=== PATIENT | female | born 1935 | race Caucasian/White ===

== ENCOUNTER 2016-08-14 09:41 | Inpatient (IN) | payer MEDICARE ==
[~2016-08-14] VITALS: Ht 165.1 cm; Wt 52.7 kg
[2016-08-14] MEDS ORDERED: FISH100049 PO (09:57)
[2016-08-14] MEDS ORDERED: VITA100037 PO (09:57)
[2016-08-14] MEDS ORDERED: AMLO5TAB2 PO (09:57)
[2016-08-14] MEDS ORDERED: ATOR40TA PO (09:57)
[2016-08-14] MEDS ORDERED: CALC600T21 PO (09:57)
[2016-08-14] MEDS ORDERED: LISI20TA PO (09:57)
[2016-08-14] MEDS ORDERED: MAGN64TASA PO (09:57)
[2016-08-14] MEDS ORDERED: BIMA01SOL OU (09:57)
[2016-08-14] MEDS ORDERED: DORZ2OPD OU (09:57)
[2016-08-14] MEDS ORDERED: CLINDAMYCIN 600 MG in APPROPRIATE DILUENT 1 EA IV ONE (10:30)
[2016-08-14 11:11] LABS: CALCIUM LEVEL 9.4 MG/DL (8.8-10.2); GLOMERULAR FILTRATION RATE 56.5 (>32); POTASSIUM SERUM 4.4 MEQ/L (3.5-5.1)
[2016-08-14] MEDS ORDERED: NS 1,000 ML IV SCH ×2 (11:30→14:15)
[2016-08-14 11:31] LABS: MEAN CORPUSCULAR VOLUME 94.1 fl (80.0-96.0); PLATELET COUNT, AUTOMATED 341 k/mm3 (150-450); RED CELL DISTRIBUTION WIDTH 12.5 % (11.5-14.5); WHITE BLOOD COUNT 23.6 K/mm3 (4.0-10.0)
--- NOTE | 2016-08-14 11:42 | REP ---
Clinical: Erythema with pain and swelling . Technique: Freeman scale and color Doppler evaluation using linear high frequency transducer. Findings: Ultrasound examination of the left lower extremity deep venous structures from the common femoral vein to the popliteal vein demonstrates normal compressibility flow and wave patterns in response to respiration and augmentation. There is no evidence for deep venous thrombosis. Left groin lymph node measuring 2.3 x 1.0 x 1.7 cm. Impression: No evidence for deep venous thrombosis. Incidental prominent left groin node. Signed by Star Painter MD 08/14/2016 11:34 A
[2016-08-14 11:58] LABS: BANDS 6 % (< 11)
[2016-08-14 12:13] LABS: ERYTHROCYTE SEDIMENTATION RATE 41 mm/hr (0-30)
[2016-08-14] MEDS ORDERED: KETO2CR TOP (12:54)
[2016-08-14] MEDS ORDERED: TRIA0.1L TOP (12:54)
[2016-08-14] MEDS ORDERED: LATA5OPD OU (12:54)
[2016-08-14] MEDS ORDERED: DORZ2SOL5 OU (12:54)
--- NOTE | 2016-08-14 12:58 | HPEPDOC ---
Medical History and Physical Date of Admission 08/14/16 History and Physical ATTENDING: PCP:Dr Johnson CC: LLE pain HPI: 81yoF with a past medical history significant for HTN, HLD, chronic onychomycosis of the B/L feet who has noticed increased pain and erythema of LLE for past 24-48 hours. Pt developed warmth in LLE. Pt felt chills, no known fever. Brought to ED for eval by family. Denies any NEGRETE, CP, SOB, cough, palpitations, abdominal pain, N/V/D or changes in bowel or bladder habits. Upon presentation to the hospital the patient was found to have LLE cellulitis, thus the hospitalist team was consulted. PMHx: HTN HLD Vit D def Hypomagnesemia Glaucoma PSHX: sigmoid resection 03/28 partial hysterectomy 1974 rectovaginal fistula repair 05/30 Melanoma RUE Cataract b/l colonoscopy 05/08 SOCHX: Resides in: [facility] Marital Status: Kids: 6 Employment: retired Tobacco use: 4-5 per day ETOH: 1 beer at lunch, 2 cocktails at night Illicit Drugs: Denies Recent travel:denies Advanced directives: none FAMHX: Mother: liver disease Father: rheumatic HD Siblings: 1 sister Alive, well Children: 5 Alive, well. 1 MVA. Unexpected deaths due to medical reasons: None. ROS: As noted in HPI, otherwise 11pt ROS of systems reviewed and unremarkable. Family at bedside reports she has had difficulty ambulating at home and difficulty getting around the house. No Falls however. PE: GEN: 81yoF, appears stated age. Well-nourished, well developed. No acute distress. Alert and oriented x 3. Pleasant, interactive. HEENT: Normocephalic, atraumatic. Pupils are equal, round, and reactive to light. Extraocular movements are intact. No nystagmus appreciated. Sclera are nonicteric. Conjunctiva without injection. Nose midline. Nasal turbinates without bogginess. EACs both patent BL. TMs both visualized and cronin with good cone of light, no bulging or erythema. No facial asymmetry. Moist mucous membranes. Dentition fair. Pharynx pink and moist, no cobblestoning. Neck supple , trachea midline. No lymphadenopathy or thyromegaly appreciated. CHEST: Regular rate and rhythm, +S1, +S2 LUNGS: Clear to auscultation bilaterally. No wheezes, rales, or rhonchi. Breathing appears symmetric and easy. Patient is speaking in full sentences. No accessory muscle use. ABD: Round, soft, non-tender, non-distended. +Bowel sounds throughout. No rebound or guarding. No costovertebral angle tenderness. EXT: There is skin sloughing of feet B/L, dermatophytosis of nails of feet b/l. LLE with erythema/warmth/edema extending to proximal pretibial area. NEURO: Alert and oriented x 3. Cranial nerves III-XII are intact. No focal deficits appreciated. U/S LLE No evidence for deep venous thrombosis. Incidental prominent left groin node. BLOOD CULTURES: x 2 pending A&P: 81yoF with a past medical history significant for HTN, HLD, chronic onychomycosis of the B/L feet who has noticed increased pain and erythema of LLE for past 24-48 hours. Pt developed warmth in LLE. Pt felt chills, no known fever. Brought to ED for eval by family. The patient will be admitted to M/S Dr. Martinez's service. Pt is discussed with Dr Coon. Kelly cellulitis. U/S LE neg for DVT. BC x 2 pending. Monitor labs, and inflammatory markers. IV Vancomycin with Pharmacy dosing. Hyponatremia. IVF at 75cc/hr. UA pending. Urine for osm/Na. AM Cortisol. HOLD HCTZ, Pt Na appears to be chronically running low. HTN. Cont outpt Norvasc/ACEI with hold parameters HLD. Cont statin. Glaucoma. Cont outpt regimen. Unsteady gait. No falls. PT/OT requested. Pt does not use any assistive devices at home. DVT prophylaxis. Lovenox The patient is a Full code Vital Signs Vital Signs Label Value Date Time Patient Temperature 98.8 degrees F 08/14/16940 Temperature Source Temporal 08/14/16940 Pulse 98 08/14/16940 Respiratory Rate 18 bpm 08/14/16940 Blood Pressure Assessment 159/72 (101) 08/14/16 09 Location Right Arm Source Automatic Cuff (NIBP) Position Sitting Bedside Pulse Oximetry 98 % 08/14/16940 Item Value Date Time Oxygen Delivery Method Room Air 08/14/16 0926 Laboratory Data Labs 24H Laboratory Tests 2 08/14/16 10:25: Anion Gap 9, Atypical Lymphocytes 1, Band Neutrophils 6, White Blood Count 23.6H , Red Blood Count 3.70L, Hemoglobin 11.9L, Hematocrit 34.8L, Mean Corpuscular Volume 94.1, Mean Corpuscular Hemoglobin 32.0, Mean Corpuscular Hemoglobin Concent 34.0, Red Cell Distribution Width 12.5, Platelet Count 341, Neutrophils (%) (Auto) , Lymphocytes (%) (Auto) , Monocytes (%) (Auto) , Eosinophils (%) ( Auto) , Basophils (%) (Auto) , Neutrophils # (Auto) , Lymphocytes # (Auto) , Monocytes # (Auto) , Eosinophils # (Auto) , Basophils # (Auto) , C-Reactive Protein, Quantitative 11.30H, Blood Urea Nitrogen 21H, Creatinine 1.00, Sodium Level 127L, Potassium Level 4.4, Chloride Level 89L, Carbon Dioxide Level 29, Calcium Level 9.4, Erythrocyte Sedimentation Rate 41H, Glomerular Filtration Rate 56.5, Large Unclassified Cells # , Large Unclassified Cells % , Lymphocytes (Manual) 1L, Monocytes (Manual) 8, Neutrophils 84H, Platelet Estimate NORMAL, Red Blood Cell Morphology NORMAL CBC/BMP Laboratory Tests 08/14/16 10:25 Calcium Level 9.4, Red Blood Count 3.70 L, Mean Corpuscular Volume 94.1, Mean Corpuscular Hemoglobin 32.0, Mean Corpuscular Hemoglobin Concent 34.0, Red Cell Distribution Width 12.5, Neutrophils (%) (Auto) , Lymphocytes (%) (Auto) , Monocytes (%) (Auto) , Eosinophils (%) (Auto) , Basophils (%) (Auto) , Neutrophils # (Auto) , Lymphocytes # (Auto) , Monocytes # (Auto) , Eosinophils # (Auto) , Basophils # (Auto) Home Medications Scheduled (Lisinopril/Hydrochlorothi 20-12.5 mg) 1 Tab Tab 1 TAB PO DAILY (Dorzolamide HCl/Timolol M 22.3-6.8 mg/ml) 1 Linda Linda 1 DROP OU BID Amlodipine Besylate (Amlodipine Besylate) 5 Mg Tab 5 MG PO DAILY Atorvastatin Calcium (Atorvastatin Calcium) 40 Mg Tab 40 MG PO DAILY Calcium Carbonate (Calcium) 600 Mg Tab 600 MG PO DAILY TAKES WITH LUNCH Fish Oil (Fish Oil 1000 mg) 1 Cap Cap 1 CAP PO BID Ketoconazole (Ketoconazole) 2 % Cre 1 DOSE TOP DAILY APPLY TO FEET Latanoprost (Latanoprost) 50 Drop/2.5 Ml Soln 1 DROP OU QHS Magnesium Chloride (Mag64) 64 Mg Tabcr 64 MG PO DAILY TAKES WITH LUNCH Vitamin D (Vitamin D) 1,000 Unit Cap 1,000 UNIT PO DAILY TAKES WITH LUNCH Scheduled PRN Triamcinolone Acetonide (Triamcinolone Acetonide) 0.1 % Lot 1 DOSE TOP BID PRN PRN ITCHING APPLY TO ARMS, BACK, AND THIGHS Allergies Coded Allergies: Codeine (Verified Allergy, Mild, RASH, 08/24/12) Azithromycin (Verified Allergy, Unknown, CAN'T REMEMBER RXN; SUGGESTED TO LIST ALLERGY, 08/24/12) Tetracycline (Verified Adverse Reaction, Severe, TONGUE BURNING, 08/14/16) Jeane Tierney Aug 14, 2016 12:58
[2016-08-14 13:58] LABS: MAGNESIUM LEVEL 1.6 MG/DL (1.8-2.4)
[2016-08-14] MEDS ORDERED: VANCOMYCIN HCL 1,000 MG, VIAL MATE ADAPTER 1 EACH in D5W 250 ML IV ONE (14:00)
[2016-08-14] MEDS: ACETAMINOPHEN TAB 650MG DOSE (2X325MG) PO PRN ×2 (14:35→20:11)
[2016-08-14 15:00] VITALS: BP 123/57
--- NOTE | 2016-08-14 15:02 | PHACANCOPD ---
PHARMACY VANCOMYCIN DOSING Pt Demographics Demographics Patient Age:81 , Weight: , Gender: female Adjusted Body Weight Date: 08/14/16, Adjusted Body Weight: Kg Events Past 24 Hours Events Past 24 Hours: NO: Change in CrCl, Dialysis, Diuretic Therapy, Elevation in WBC, Fever, Other, Pending Diagnostics, Pending Procedures Vancomycin Vancomycin indication: CELLULITIS Vancomycin Target Ranges: 15-20 mcg/ml Vancomycin Load Y/N: No Load Dose Date Time Vancomycin Load Dose: Date: Time: Vancomycin Dose Date: 08/14/16. Current Vancomycin Dose: [1GM IV Q24H@17] Intermittent Dosing?: No Labs Labs Vital Signs Label Value Date Time Patient Temperature 101.1 degrees F 08/14/16 1441 Temperature Source Temporal 08/14/16 1441 Item Value Date Time White Blood Count 23.6 K/mm3 H 08/14/16 1025 Creatinine 1.00 MG/DL 08/14/16 1025 Micro Microbiology 08/14/16 Blood Culture, Received Pending 08/14/16 Blood Culture, Received Pending Creatinine Clearance Date:08/14/16. Creatinine Clearance: . Assessment and Plan Maintaining Current Dose?: Yes Reason for dose change: No Dose Change Pharmacist Note Pharmacist Note Date: 08/14/16. Pharmacist note: Patient was started on Vancomycin 1gm IV q24h for treatment of cellulitis. She has no history of Vancomycin use at our facility. She has no history of MRSA at our facility. We will continue to monitor and make adjustments as necessary. D[facility] Aug 14, 2016 15:02
[2016-08-14] MEDS: ENOXAPARIN 40 MG/0.4 ML SYRINGE (J1650) SC SCH (15:29)
[2016-08-14] MEDS: VITAMIN D 1,000 INTERNATIONAL UNITS TABLET PO SCH (15:29)
[2016-08-14] MEDS: MAGNESIUM CHLORIDE 64 MG TABCR (SLO MAG) PO SCH (15:30)
[2016-08-14] MEDS: VANCOMYCIN HCL 1,000 MG, VIAL MATE ADAPTER 1 EACH in D5W 250 ML IV SCH (16:38)
[2016-08-14] MEDS: COSOPT OCUMETER PLUS 10ML (DORZOLAMIDE/TIMOLOL) OU SCH (20:10)
[2016-08-14] MEDS: LATANOPROST 0.005% OPHTH SOLN 2.5 ML OU SCH (20:10)
[2016-08-14 20:31] LABS: OSMOLALITY URINE 262 MOSM/KG (500-800)
[2016-08-14 22:00] VITALS: BP 134/70
[2016-08-15] MEDS: ACETAMINOPHEN TAB 650MG DOSE (2X325MG) PO PRN ×2 (05:12→20:06)
[2016-08-15 06:00] VITALS: BP 130/62
[2016-08-15 06:48] LABS: BASO % 0.1 % (0.0-1.0); EOS # 0.2 K/mm3 (0.0-0.50); EOS % 1.4 % (0.0-3.0); LARGE UNSTAINED CELL # 0.1 K/mm3 (0.0-0.4); LARGE UNSTAINED CELL % 0.7 % (0.0-4.0); LYMPH # 0.9 K/mm3 (1.5-4.5); LYMPH % 5.8 % (24.0-44.0); MEAN CORPUSCULAR HEMOGLOBIN 32.6 pg (27.0-33.0); MEAN CORPUSCULAR VOLUME 93.1 fl (80.0-96.0); MONO # 0.4 K/mm3 (0.0-0.8); MONO % 2.9 % (0.0-5.0); NEUTROPHILS # 12.8 K/mm3 (1.8-7.7); NEUTROPHILS % 89.1 % (36.0-66.0); PLATELET COUNT, AUTOMATED 263 k/mm3 (150-450); RED CELL DISTRIBUTION WIDTH 12.6 % (11.5-14.5); WHITE BLOOD COUNT 14.3 K/mm3 (4.0-10.0)
[2016-08-15 07:06] LABS: ALBUMIN 2.3 GM/DL (3.2-5.2); ALBUMIN/GLOBULIN RATIO 0.74 (1.00-1.93); ALKALINE PHOSPHATASE 50 U/L (45-117); ALT/SGPT 12 U/L (12-78); ANION GAP 9 MEQ/L (8-16); AST/SGOT 14 U/L (15-37); BILIRUBIN,TOTAL 0.5 MG/DL (0.2-1.0); BLOOD UREA NITROGEN 18 MG/DL (7-18); CALCIUM LEVEL 8.9 MG/DL (8.8-10.2); CARBON DIOXIDE LEVEL 24 MEQ/L (21-32); CHLORIDE LEVEL 98 MEQ/L (98-107); CREATININE FOR GFR 0.53 MG/DL (0.55-1.02); GLOMERULAR FILTRATION RATE > 60.0 (>32); GLUCOSE, FASTING 104 MG/DL (83-110); POTASSIUM SERUM 3.5 MEQ/L (3.5-5.1); SODIUM LEVEL 131 MEQ/L (136-145); TOTAL PROTEIN 5.4 GM/DL (6.4-8.2)
[2016-08-15 07:22] LABS: ERYTHROCYTE SEDIMENTATION RATE 60 mm/hr (0-30)
[2016-08-15] MEDS: ATORVASTATIN 20 MG TAB PO SCH (08:28)
[2016-08-15] MEDS: ENOXAPARIN 40 MG/0.4 ML SYRINGE (J1650) SC SCH (08:29)
[2016-08-15] MEDS: COSOPT OCUMETER PLUS 10ML (DORZOLAMIDE/TIMOLOL) OU SCH ×2 (08:29→20:06)
[2016-08-15] MEDS ORDERED: KETOCONAZOLE 2% CREAM TOP SCH (09:00)
[2016-08-15] MEDS: LISINOPRIL 20 MG TAB PO SCH (09:00)
[2016-08-15] MEDS: amLODIPine 5 MG TAB PO SCH (09:00)
--- NOTE | 2016-08-15 12:06 | IPNPDOC ---
Subjective Date Seen The patient was seen on 08/15/16. Subjective Chief Complaint/HPI The patient is a 81-year-old female admitted with a reason for visit of Cellulitis Of Left Lower Extremity. Events since last encounter continues to have left leg pain and swelling though the redness is better, had low grade fever over night, no abdominal pain , nausea or vomiting or diarrhea, no chest pain or sob. Objective Physical Examination General Exam: Positive: Alert, No Acute Distress Eye Exam: Positive: Conjunctiva & lids normal, EOMI, PERRLA, Negative: Sclera icteric ENT Exam: Positive: Atraumatic, Mucous membr. moist/pink, Pharynx Normal Neck Exam: Positive: Supple, Negative: JVD, thyromegaly Chest Exam: Positive: Clear to auscultation, Normal air movement Heart Exam: Positive: Normal S1, Normal S2, Rate Normal, Regular Rhythm, Negative: Murmurs, Rubs Abdomen Exam: Positive: Normal bowel sounds, Soft, Negative: Hepatospenomegaly, Tenderness Extremity Exam: Positive: Swelling (left), Tenderness (left) Skin Exam: Positive: Other skin issue (both feet with extremely dry skin with peeling and caluses and fungal infection in the interdigital spaces. ) Assessment /Plan Problems (1) Cellulitis of left lower extremity Status: Acute Problem Text: will continue with vancomycin blood cultures in progress. (2) Hyponatremia Status: Acute Problem Text: possibly related to HCTZ . it was held (3) Hypertension Status: Chronic (4) Hyperlipidemia Status: Chronic (5) Onychomycosis Status: Chronic Problem Text: of both feet follows with podiatry in [place] will continue ketoconazole cream Plan/VTE VTE Prophylaxis Ordered?: Yes VS, I&O, 24H, Fishbone Vital Signs/I&O Vital Signs Date Time Temp Pulse Resp B/P Pulse Ox O2 Delivery O2 Flow Rate FiO2 08/15/16 09:00 105/60 08/15/16 09:00 72 08/15/16 06:00 100.7 17 96 Room Air I&O- Last 24 Hours up to 6 AM 08/15/16 06:00 Intake Total 890 ml Output Total 1400 ml Balance -510 ml Laboratory Data 24H LABS Laboratory Tests 2 08/14/16 19:44: Urine Amorphous Sediment SMALLH, Urine Appearance CLEAR, Urine Color YELLOW, Urine pH 6.0, Urine Specific Maceo 1.008, Urine Protein NEGATIVE, Urine Glucose (UA) 1+H, Urine Ketones NEGATIVE, Urine Urobilinogen 0.2, Urine Bilirubin NEGATIVE, Urine Leukocyte Esterase NEGATIVE, Urine Bacteria (Auto) NEGATIVE, Urine Blood NEGATIVE, Urine Calcium Carbonate Cryst(Auto) , Urine Calcium Oxalate Cryst (Auto) , Urine Calcium Phosphate Denia (Auto) , Urine Cellular Casts , Urine Cystine Crystals , Urine Granular Casts (Auto) , Urine Hyaline Casts (Auto) 0, Urine Leucine Crystals , Urine Mucus (Auto) , Urine Nitrite NEGATIVE, Urine Oval Fat Bodies (Auto) , Urine RBC (Auto) 2, Urine Random Osmolality 262L, Urine Random Sodium 16, Urine Renal Epithelial Cells , Urine Sperm (Auto) , Urine Squamous Epithelial Cells 0, Urine Transitional Epithelial Cells , Urine Trichomonas (Auto) , Urine Triple Phosphate Cryst (Auto ) , Urine Tyrosine Crystals , Urine Uric Acid Crystals (Auto) , Urine WBC (Auto ) 1, Urine Waxy Casts (Auto) , Urine Yeast-Like Cells (Auto) 08/15/16 06:25: Blood Urea Nitrogen 18, Creatinine 0.53L, Sodium Level 131L, Potassium Level 3.5 #, Chloride Level 98, Carbon Dioxide Level 24, Calcium Level 8.9, Aspartate Amino Transf (AST/SGOT) 14L, Alanine Aminotransferase (ALT/SGPT) 12, Alkaline Phosphatase 50, Total Bilirubin 0.5, Total Protein 5.4L, Albumin 2.3L, Albumin/ Globulin Ratio 0.74L, Anion Gap 9, White Blood Count 14.3H, Red Blood Count 3.20L, Hemoglobin 10.4L, Hematocrit 29.8L, Mean Corpuscular Volume 93.1, Mean Corpuscular Hemoglobin 32.6, Mean Corpuscular Hemoglobin Concent 35.0, Red Cell Distribution Width 12.6, Platelet Count 263, Neutrophils (%) (Auto) 89.1H, Lymphocytes (%) (Auto) 5.8L, Monocytes (%) (Auto) 2.9, Eosinophils (%) (Auto) 1.4, Basophils (%) (Auto) 0.1, Neutrophils # (Auto) 12.8H, Lymphocytes # (Auto) 0.9L, Monocytes # (Auto) 0.4, Eosinophils # (Auto) 0.2, Basophils # (Auto) 0.0, C-Reactive Protein, Quantitative 17.90H, Cortisol AM Sample 19.7, Erythrocyte Sedimentation Rate 60H, Glomerular Filtration Rate > 60.0, Large Unclassified Cells # 0.1, Large Unclassified Cells % 0.7 CBC/BMP Laboratory Tests 08/15/16 06:25 Calcium Level 8.9, Aspartate Amino Transf (AST/SGOT) 14 L, Alanine Aminotransferase (ALT/SGPT) 12, Alkaline Phosphatase 50, Total Bilirubin 0.5, Total Protein 5.4 L, Albumin 2.3 L, Red Blood Count 3.20 L, Mean Corpuscular Volume 93.1, Mean Corpuscular Hemoglobin 32.6, Mean Corpuscular Hemoglobin Concent 35.0, Red Cell Distribution Width 12.6, Neutrophils (%) (Auto) 89.1 H, Lymphocytes (%) (Auto) 5.8 L, Monocytes (%) (Auto) 2.9, Eosinophils (%) (Auto) 1.4, Basophils (%) (Auto) 0.1, Neutrophils # (Auto) 12.8 H, Lymphocytes # (Auto ) 0.9 L, Monocytes # (Auto) 0.4, Eosinophils # (Auto) 0.2, Basophils # (Auto) 0.0 Microbiology Microbiology 08/14/16 Blood Culture, Received Pending 08/14/16 Blood Culture, Received Pending ARIS COOK MD Aug 15, 2016 12:06
[2016-08-15] MEDS: VITAMIN D 1,000 INTERNATIONAL UNITS TABLET PO SCH (12:07)
[2016-08-15] MEDS: MAGNESIUM CHLORIDE 64 MG TABCR (SLO MAG) PO SCH (13:56)
[2016-08-15 14:00] VITALS: BP 146/67
[2016-08-15] MEDS: VANCOMYCIN HCL 1,000 MG, VIAL MATE ADAPTER 1 EACH in D5W 250 ML IV SCH (17:14)
[2016-08-15] MEDS: LATANOPROST 0.005% OPHTH SOLN 2.5 ML OU SCH (20:06)
[2016-08-15 22:00] VITALS: BP 135/67
[2016-08-16 06:00] VITALS: BP 134/65
[2016-08-16 06:35] LABS: BASO % 0.2 % (0.0-1.0); EOS # 0.2 K/mm3 (0.0-0.50); EOS % 1.8 % (0.0-3.0); LARGE UNSTAINED CELL # 0.1 K/mm3 (0.0-0.4); LARGE UNSTAINED CELL % 0.9 % (0.0-4.0); LYMPH % 9.1 % (24.0-44.0); MEAN CORPUSCULAR HEMOGLOBIN 31.6 pg (27.0-33.0); MEAN CORPUSCULAR HGB CONC 33.8 g/dl (32.0-36.5); MEAN CORPUSCULAR VOLUME 93.6 fl (80.0-96.0); MONO # 0.4 K/mm3 (0.0-0.8); NEUTROPHILS # 8.4 K/mm3 (1.8-7.7); PLATELET COUNT, AUTOMATED 292 k/mm3 (150-450); RED CELL DISTRIBUTION WIDTH 12.5 % (11.5-14.5)
[2016-08-16 06:59] LABS: ALBUMIN 2.3 GM/DL (3.2-5.2); ALKALINE PHOSPHATASE 61 U/L (45-117); ALT/SGPT 18 U/L (12-78); ANION GAP 7 MEQ/L (8-16); AST/SGOT 20 U/L (15-37); BILIRUBIN,TOTAL 0.4 MG/DL (0.2-1.0); BLOOD UREA NITROGEN 12 MG/DL (7-18); CALCIUM LEVEL 8.9 MG/DL (8.8-10.2); CARBON DIOXIDE LEVEL 27 MEQ/L (21-32); CHLORIDE LEVEL 99 MEQ/L (98-107); CREATININE FOR GFR 0.47 MG/DL (0.55-1.02); GLOMERULAR FILTRATION RATE > 60.0 (>32); GLUCOSE, FASTING 101 MG/DL (83-110); POTASSIUM SERUM 3.4 MEQ/L (3.5-5.1); SODIUM LEVEL 133 MEQ/L (136-145); TOTAL PROTEIN 5.6 GM/DL (6.4-8.2)
[2016-08-16] MEDS ORDERED: KETOCONAZOLE 2% CREAM TOP SCH (09:20)
[2016-08-16] MEDS: ATORVASTATIN 20 MG TAB PO SCH (09:23)
[2016-08-16] MEDS: amLODIPine 5 MG TAB PO SCH (09:23)
[2016-08-16] MEDS: LISINOPRIL 20 MG TAB PO SCH (09:23)
[2016-08-16] MEDS: ENOXAPARIN 40 MG/0.4 ML SYRINGE (J1650) SC SCH (09:24)
[2016-08-16] MEDS: COSOPT OCUMETER PLUS 10ML (DORZOLAMIDE/TIMOLOL) OU SCH ×2 (09:24→20:38)
[2016-08-16] MEDS ORDERED: POTASSIUM CHLORIDE 10 MEQ SR TABLET PO ONE (10:00)
[2016-08-16] MEDS: KETOCONAZOLE 2% CREAM TOP SCH (10:17)
[2016-08-16] MEDS: VITAMIN D 1,000 INTERNATIONAL UNITS TABLET PO SCH (11:23)
[2016-08-16] MEDS: MAGNESIUM CHLORIDE 64 MG TABCR (SLO MAG) PO SCH (11:24)
--- NOTE | 2016-08-16 12:15 | IPNPDOC ---
Subjective Date Seen The patient was seen on 08/16/16. Subjective Chief Complaint/HPI The patient is a 81-year-old female admitted with a reason for visit of Cellulitis Of Left Lower Extremity. Events since last encounter swelling and redness of the lower extremity is better. Patient has been cleared by PT however pateint complains of sorreness and pain and difficulty in weight bearing. No fever or chills, no chest pain or sob , no nausea or vomiting or diarrhea, Objective Physical Examination General Exam: Positive: Alert, No Acute Distress Eye Exam: Positive: Conjunctiva & lids normal, EOMI, PERRLA, Negative: Sclera icteric ENT Exam: Positive: Atraumatic, Mucous membr. moist/pink, Pharynx Normal Neck Exam: Positive: Supple, Negative: JVD, thyromegaly Chest Exam: Positive: Clear to auscultation, Normal air movement Heart Exam: Positive: Normal S1, Normal S2, Rate Normal, Regular Rhythm, Negative: Murmurs, Rubs Abdomen Exam: Positive: Normal bowel sounds, Soft, Negative: Hepatospenomegaly, Tenderness Extremity Exam: Positive: Swelling (left), Tenderness (left) Skin Exam: Positive: Other skin issue (both feet with extremely dry skin with peeling and caluses and fungal infection in the interdigital spaces. ) Assessment /Plan Problems (1) Cellulitis of left lower extremity Status: Acute Problem Text: will continue with vancomycin blood cultures in progress. (2) Hyponatremia Status: Acute Response to Treatment: Improving Problem Text: possibly related to HCTZ . it was held (3) Hypertension Status: Chronic (4) Hyperlipidemia Status: Chronic (5) Onychomycosis Status: Chronic Problem Text: of both feet follows with podiatry in [place] will continue ketoconazole cream will start on terbinafine. Plan/VTE VTE Prophylaxis Ordered?: Yes VS, I&O, 24H, Fishbone Vital Signs/I&O Vital Signs Date Time Temp Pulse Resp B/P Pulse Ox O2 Delivery O2 Flow Rate FiO2 08/16/16 09:23 68 152/72 08/16/16 06:00 99.3 18 97 Room Air I&O- Last 24 Hours up to 6 AM 08/16/16 06:00 Intake Total 2340 ml Output Total 400 ml Balance 1940 ml Laboratory Data 24H LABS Laboratory Tests 2 08/16/16 06:10: Blood Urea Nitrogen 12, Creatinine 0.47L, Sodium Level 133L, Potassium Level 3.4L, Chloride Level 99, Carbon Dioxide Level 27, Calcium Level 8.9, Aspartate Amino Transf (AST/SGOT) 20, Alanine Aminotransferase (ALT/SGPT) 18, Alkaline Phosphatase 61, Total Bilirubin 0.4, Total Protein 5.6L, Albumin 2.3L, Albumin/ Globulin Ratio 0.70L, Anion Gap 7L, White Blood Count 10.0, Red Blood Count 3.34L, Hemoglobin 10.6L, Hematocrit 31.3L, Mean Corpuscular Volume 93.6, Mean Corpuscular Hemoglobin 31.6, Mean Corpuscular Hemoglobin Concent 33.8, Red Cell Distribution Width 12.5, Platelet Count 292, Neutrophils (%) (Auto) 84.0H, Lymphocytes (%) (Auto) 9.1L, Monocytes (%) (Auto) 4.0, Eosinophils (%) (Auto) 1.8, Basophils (%) (Auto) 0.2, Neutrophils # (Auto) 8.4H, Lymphocytes # (Auto) 1.0L, Monocytes # (Auto) 0.4, Eosinophils # (Auto) 0.2, Basophils # (Auto) 0.0, Glomerular Filtration Rate > 60.0, Large Unclassified Cells # 0.1, Large Unclassified Cells % 0.9 CBC/BMP Laboratory Tests 08/16/16 06:10 Calcium Level 8.9, Aspartate Amino Transf (AST/SGOT) 20, Alanine Aminotransferase (ALT/SGPT) 18, Alkaline Phosphatase 61, Total Bilirubin 0.4, Total Protein 5.6 L, Albumin 2.3 L, Red Blood Count 3.34 L, Mean Corpuscular Volume 93.6, Mean Corpuscular Hemoglobin 31.6, Mean Corpuscular Hemoglobin Concent 33.8, Red Cell Distribution Width 12.5, Neutrophils (%) (Auto) 84.0 H, Lymphocytes (%) (Auto) 9.1 L, Monocytes (%) (Auto) 4.0, Eosinophils (%) (Auto) 1.8, Basophils (%) (Auto) 0.2, Neutrophils # (Auto) 8.4 H, Lymphocytes # (Auto) 1.0 L, Monocytes # (Auto) 0.4, Eosinophils # (Auto) 0.2, Basophils # (Auto) 0.0 Microbiology Microbiology 08/14/16 Blood Culture - Preliminary, Resulted No growth after 24 hours . All specim... 08/14/16 Blood Culture - Preliminary, Resulted No growth after 24 hours . All specim... ARIS COOK MD Aug 16, 2016 12:15
[2016-08-16] MEDS: TERBINAFINE 250 MG TABLET PO SCH (13:57)
[2016-08-16 14:00] VITALS: BP 104/51
--- NOTE | 2016-08-16 16:57 | PHACANCOPD ---
PHARMACY VANCOMYCIN DOSING Pt Demographics Demographics Patient Age:81 , Weight:54.300 , Gender: female Adjusted Body Weight Date: 08/14/16, Adjusted Body Weight: [54.4] Kg Events Past 24 Hours Events Past 24 Hours: NO: Change in CrCl, Dialysis, Diuretic Therapy, Elevation in WBC, Fever, Other, Pending Diagnostics, Pending Procedures Vancomycin Vancomycin indication: CELLULITIS Vancomycin Target Ranges: 15-20 mcg/ml Vancomycin Load Y/N: No Load Dose Date Time Vancomycin Load Dose: Date: Time: Vancomycin Dose Date: 08/16/16. Current Vancomycin Dose: [1G q12H @17] Date: 08/14/16. Current Vancomycin Dose: [1GM IV Q24H@17] Intermittent Dosing?: No Labs Labs Item Value Date Time White Blood Count 23.6 K/mm3 H 08/14/16 1025 White Blood Count 14.3 K/mm3 H 08/15/16 0625 White Blood Count 10.0 K/mm3 08/16/16 0610 Creatinine 1.00 MG/DL 08/14/16 1025 Creatinine 0.53 MG/DL L 08/15/16 0625 Creatinine 0.47 MG/DL L 08/16/16 0610 Micro Microbiology 08/14/16 Blood Culture - Preliminary, Resulted No Growth after 48 hours. All Specime... 08/14/16 Blood Culture - Preliminary, Resulted No Growth after 48 hours. All Specime... Creatinine Clearance Date:08/14/16. Creatinine Clearance: [88.9ML/MIN]. Assessment and Plan Maintaining Current Dose?: No Reason for dose change: Trough too low Pharmacist Note Pharmacist Note Date: 08/16/16. Pharmacist note: Trough came back today at 16:11 @3.5mcg/ml. Pt renal clearance has improved to 88.9ml/min. The maintenance dosing will be changed to 1g Q12h @17. We will continue to monitor and adjust dose as needed. Date: 08/14/16. Pharmacist note: Patient was started on Vancomycin 1gm IV q24h for treatment of cellulitis. She has no history of Vancomycin use at our facility. She has no history of MRSA at our facility. We will continue to monitor and make adjustments as necessary. CONSTANCE [facility]ER [facility] Aug 16, 2016 16:57
[2016-08-16] MEDS: VANCOMYCIN HCL 1,000 MG, VIAL MATE ADAPTER 1 EACH in D5W 250 ML IV SCH (17:14)
[2016-08-16] MEDS: LATANOPROST 0.005% OPHTH SOLN 2.5 ML OU SCH (20:38)
[2016-08-16 22:00] VITALS: BP 142/74
[2016-08-17] MEDS: VANCOMYCIN HCL 1,000 MG, VIAL MATE ADAPTER 1 EACH in D5W 250 ML IV SCH ×2 (05:13→17:09)
[2016-08-17 06:00] VITALS: BP 149/71
[2016-08-17 06:20] LABS: BASO % 0.3 % (0.0-1.0); EOS # 0.2 K/mm3 (0.0-0.50); EOS % 1.9 % (0.0-3.0); LARGE UNSTAINED CELL # 0.2 K/mm3 (0.0-0.4); LARGE UNSTAINED CELL % 1.7 % (0.0-4.0); LYMPH # 1.1 K/mm3 (1.5-4.5); LYMPH % 11.8 % (24.0-44.0); MEAN CORPUSCULAR HEMOGLOBIN 31.9 pg (27.0-33.0); MEAN CORPUSCULAR HGB CONC 33.5 g/dl (32.0-36.5); MEAN CORPUSCULAR VOLUME 95.2 fl (80.0-96.0); MONO # 0.6 K/mm3 (0.0-0.8); MONO % 6.6 % (0.0-5.0); NEUTROPHILS # 6.6 K/mm3 (1.8-7.7); NEUTROPHILS % 77.7 % (36.0-66.0); PLATELET COUNT, AUTOMATED 330 k/mm3 (150-450); RED CELL DISTRIBUTION WIDTH 12.5 % (11.5-14.5); WHITE BLOOD COUNT 8.5 K/mm3 (4.0-10.0)
[2016-08-17 06:34] LABS: ALBUMIN 2.3 GM/DL (3.2-5.2); ALBUMIN/GLOBULIN RATIO 0.72 (1.00-1.93); ALKALINE PHOSPHATASE 60 U/L (45-117); ALT/SGPT 24 U/L (12-78); ANION GAP 6 MEQ/L (8-16); AST/SGOT 20 U/L (15-37); BILIRUBIN,TOTAL 0.3 MG/DL (0.2-1.0); BLOOD UREA NITROGEN 11 MG/DL (7-18); CALCIUM LEVEL 8.5 MG/DL (8.8-10.2); CARBON DIOXIDE LEVEL 26 MEQ/L (21-32); CHLORIDE LEVEL 100 MEQ/L (98-107); CREATININE FOR GFR 0.39 MG/DL (0.55-1.02); GLOMERULAR FILTRATION RATE > 60.0 (>32); GLUCOSE, FASTING 128 MG/DL (83-110); POTASSIUM SERUM 3.7 MEQ/L (3.5-5.1); SODIUM LEVEL 132 MEQ/L (136-145); TOTAL PROTEIN 5.5 GM/DL (6.4-8.2)
[2016-08-17] MEDS: LISINOPRIL 10 MG TAB PO SCH (09:00)
--- NOTE | 2016-08-17 09:23 | IPNPDOC ---
Subjective Date Seen The patient was seen on 08/17/16. Subjective Chief Complaint/HPI The patient is a 81-year-old female admitted with a reason for visit of Cellulitis Of Left Lower Extremity. Events since last encounter leg swelling and inflammation getting better still very sore as per patient. no fever or chills, no other complaints. Objective Physical Examination General Exam: Positive: Alert, No Acute Distress Eye Exam: Positive: Conjunctiva & lids normal, EOMI, PERRLA, Negative: Sclera icteric ENT Exam: Positive: Atraumatic, Mucous membr. moist/pink, Pharynx Normal Neck Exam: Positive: Supple, Negative: JVD, thyromegaly Chest Exam: Positive: Clear to auscultation, Normal air movement Heart Exam: Positive: Normal S1, Normal S2, Rate Normal, Regular Rhythm, Negative: Murmurs, Rubs Abdomen Exam: Positive: Normal bowel sounds, Soft, Negative: Hepatospenomegaly, Tenderness Extremity Exam: Positive: Swelling (left), Tenderness (left) Skin Exam: Positive: Other skin issue (both feet with extremely dry skin with peeling and caluses and fungal infection in the interdigital spaces. ) Assessment /Plan Problems (1) Cellulitis of left lower extremity Status: Acute Problem Text: will continue with vancomycin blood cultures in progress. (2) Hyponatremia Status: Acute Response to Treatment: Improving Problem Text: possibly related to HCTZ . it was held (3) Hypertension Status: Chronic Problem Text: wide fluctuations in bp changed the dosage and timing of the medications. (4) Hyperlipidemia Status: Chronic (5) Onychomycosis Status: Chronic Problem Text: of both feet follows with podiatry in [place] will continue ketoconazole cream started on terbinafine. Plan/VTE VTE Prophylaxis Ordered?: Yes VS, I&O, 24H, Fishbone Vital Signs/I&O Vital Signs Date Time Temp Pulse Resp B/P Pulse Ox O2 Delivery O2 Flow Rate FiO2 08/17/16 06:00 98.5 74 16 149/71 95 Room Air I&O- Last 24 Hours up to 6 AM 08/17/16 06:00 Intake Total 2200 ml Output Total 1200 ml Balance 1000 ml Laboratory Data 24H LABS Laboratory Tests 2 08/16/16 16:11: Vancomycin Level Trough 3.5L 08/17/16 05:56: Blood Urea Nitrogen 11, Creatinine 0.39L, Sodium Level 132L, Potassium Level 3.7 , Chloride Level 100, Carbon Dioxide Level 26, Calcium Level 8.5L, Aspartate Amino Transf (AST/SGOT) 20, Alanine Aminotransferase (ALT/SGPT) 24, Alkaline Phosphatase 60, Total Bilirubin 0.3, Total Protein 5.5L, Albumin 2.3L, Albumin/ Globulin Ratio 0.72L, Anion Gap 6L, White Blood Count 8.5, Red Blood Count 3.26L , Hemoglobin 10.4L, Hematocrit 31.0L, Mean Corpuscular Volume 95.2, Mean Corpuscular Hemoglobin 31.9, Mean Corpuscular Hemoglobin Concent 33.5, Red Cell Distribution Width 12.5, Platelet Count 330, Neutrophils (%) (Auto) 77.7H, Lymphocytes (%) (Auto) 11.8L, Monocytes (%) (Auto) 6.6H, Eosinophils (%) (Auto) 1.9, Basophils (%) (Auto) 0.3, Neutrophils # (Auto) 6.6, Lymphocytes # (Auto) 1.1L, Monocytes # (Auto) 0.6, Eosinophils # (Auto) 0.2, Basophils # (Auto) 0.0, C-Reactive Protein, Quantitative 5.82H, Glomerular Filtration Rate > 60.0, Large Unclassified Cells # 0.2, Large Unclassified Cells % 1.7 CBC/BMP Laboratory Tests 08/17/16 05:56 Calcium Level 8.5 L, Aspartate Amino Transf (AST/SGOT) 20, Alanine Aminotransferase (ALT/SGPT) 24, Alkaline Phosphatase 60, Total Bilirubin 0.3, Total Protein 5.5 L, Albumin 2.3 L, Red Blood Count 3.26 L, Mean Corpuscular Volume 95.2, Mean Corpuscular Hemoglobin 31.9, Mean Corpuscular Hemoglobin Concent 33.5, Red Cell Distribution Width 12.5, Neutrophils (%) (Auto) 77.7 H, Lymphocytes (%) (Auto) 11.8 L, Monocytes (%) (Auto) 6.6 H, Eosinophils (%) (Auto ) 1.9, Basophils (%) (Auto) 0.3, Neutrophils # (Auto) 6.6, Lymphocytes # (Auto) 1.1 L, Monocytes # (Auto) 0.6, Eosinophils # (Auto) 0.2, Basophils # (Auto) 0.0 Microbiology Microbiology 08/14/16 Blood Culture - Preliminary, Resulted No Growth after 48 hours. All Specime... 08/14/16 Blood Culture - Preliminary, Resulted No Growth after 48 hours. All Specime... ARIS COOK MD Aug 17, 2016 09:23
[2016-08-17] MEDS: ATORVASTATIN 20 MG TAB PO SCH (09:24)
[2016-08-17] MEDS: ACETAMINOPHEN TAB 650MG DOSE (2X325MG) PO PRN ×2 (09:25→16:04)
[2016-08-17] MEDS: TERBINAFINE 250 MG TABLET PO SCH (09:25)
[2016-08-17] MEDS: ENOXAPARIN 40 MG/0.4 ML SYRINGE (J1650) SC SCH (09:26)
[2016-08-17] MEDS: KETOCONAZOLE 2% CREAM TOP SCH (09:27)
[2016-08-17] MEDS: COSOPT OCUMETER PLUS 10ML (DORZOLAMIDE/TIMOLOL) OU SCH ×2 (09:27→20:53)
[2016-08-17] MEDS: TRIAMCINOLONE ACET 0.1% CREAM 80 GM TOP PRN (09:29)
[2016-08-17] MEDS: MAGNESIUM CHLORIDE 64 MG TABCR (SLO MAG) PO SCH (11:20)
[2016-08-17] MEDS: VITAMIN D 1,000 INTERNATIONAL UNITS TABLET PO SCH (11:21)
[2016-08-17 14:00] VITALS: BP 132/60
[2016-08-17] MEDS: amLODIPine 5 MG TAB PO SCH (20:48)
[2016-08-17] MEDS: LATANOPROST 0.005% OPHTH SOLN 2.5 ML OU SCH (20:53)
[2016-08-17 22:00] VITALS: BP 157/70
[2016-08-18] MEDS: VANCOMYCIN HCL 1,000 MG, VIAL MATE ADAPTER 1 EACH in D5W 250 ML IV SCH ×2 (05:14→17:13)
[2016-08-18 05:52] LABS: BASO % 0.2 % (0.0-1.0); EOS # 0.1 K/mm3 (0.0-0.50); EOS % 1.1 % (0.0-3.0); LARGE UNSTAINED CELL # 0.1 K/mm3 (0.0-0.4); LARGE UNSTAINED CELL % 1.2 % (0.0-4.0); LYMPH # 0.9 K/mm3 (1.5-4.5); MEAN CORPUSCULAR HEMOGLOBIN 31.9 pg (27.0-33.0); MEAN CORPUSCULAR HGB CONC 33.7 g/dl (32.0-36.5); MEAN CORPUSCULAR VOLUME 94.7 fl (80.0-96.0); MONO # 0.6 K/mm3 (0.0-0.8); MONO % 5.3 % (0.0-5.0); NEUTROPHILS # 9.5 K/mm3 (1.8-7.7); NEUTROPHILS % 85.4 % (36.0-66.0); PLATELET COUNT, AUTOMATED 341 k/mm3 (150-450); RED CELL DISTRIBUTION WIDTH 12.5 % (11.5-14.5); WHITE BLOOD COUNT 11.2 K/mm3 (4.0-10.0)
[2016-08-18 06:00] VITALS: BP 108/58
[2016-08-18 06:09] LABS: ALBUMIN 2.3 GM/DL (3.2-5.2); ALBUMIN/GLOBULIN RATIO 0.66 (1.00-1.93); ALKALINE PHOSPHATASE 66 U/L (45-117); ALT/SGPT 26 U/L (12-78); ANION GAP 9 MEQ/L (8-16); AST/SGOT 17 U/L (15-37); BILIRUBIN,DIRECT 0.1 MG/DL (0.0-0.2); BILIRUBIN,TOTAL 0.5 MG/DL (0.2-1.0); BLOOD UREA NITROGEN 9 MG/DL (7-18); CALCIUM LEVEL 8.6 MG/DL (8.8-10.2); CARBON DIOXIDE LEVEL 25 MEQ/L (21-32); CHLORIDE LEVEL 99 MEQ/L (98-107); CREATININE FOR GFR 0.37 MG/DL (0.55-1.02); GLOMERULAR FILTRATION RATE > 60.0 (>32); GLUCOSE, FASTING 129 MG/DL (83-110); POTASSIUM SERUM 3.6 MEQ/L (3.5-5.1); SODIUM LEVEL 133 MEQ/L (136-145); TOTAL PROTEIN 5.8 GM/DL (6.4-8.2)
--- NOTE | 2016-08-18 06:35 | IPNPDOC ---
Subjective Date Seen The patient was seen on 08/18/16. Subjective Chief Complaint/HPI The patient is a 81-year-old female admitted with a reason for visit of Cellulitis Of Left Lower Extremity. Events since last encounter no new complaints , no fever or chills, no chest pain or shortness of breath, leg swelling and inflammation improving. Objective Physical Examination General Exam: Positive: Alert, No Acute Distress Eye Exam: Positive: Conjunctiva & lids normal, EOMI, PERRLA, Negative: Sclera icteric ENT Exam: Positive: Atraumatic, Mucous membr. moist/pink, Pharynx Normal Neck Exam: Positive: Supple, Negative: JVD, thyromegaly Chest Exam: Positive: Clear to auscultation, Normal air movement Heart Exam: Positive: Normal S1, Normal S2, Rate Normal, Regular Rhythm, Negative: Murmurs, Rubs Abdomen Exam: Positive: Normal bowel sounds, Soft, Negative: Hepatospenomegaly, Tenderness Extremity Exam: Positive: Swelling (left), Tenderness (left) Skin Exam: Positive: Other skin issue (both feet with extremely dry skin with peeling and caluses and fungal infection in the interdigital spaces. ) Assessment /Plan Problems (1) Cellulitis of left lower extremity Status: Acute Problem Text: will continue with vancomycin blood cultures in progress. (2) Hyponatremia Status: Acute Response to Treatment: Improving Problem Text: possibly related to HCTZ . it was held (3) Hypertension Status: Chronic Problem Text: wide fluctuations in bp changed the dosage and timing of the medications. (4) Hyperlipidemia Status: Chronic (5) Onychomycosis Status: Chronic Problem Text: of both feet follows with podiatry in [place] will continue ketoconazole cream started on terbinafine. Plan/VTE VTE Prophylaxis Ordered?: Yes VS, I&O, 24H, Fishbone Vital Signs/I&O Vital Signs Date Time Temp Pulse Resp B/P Pulse Ox O2 Delivery O2 Flow Rate FiO2 08/17/16 22:00 98.5 82 20 157/70 97 08/17/16 14:00 Room Air I&O- Last 24 Hours up to 6 AM 08/18/16 06:00 Intake Total 1200 ml Output Total 1400 ml Balance -200 ml Laboratory Data 24H LABS Laboratory Tests 2 08/18/16 05:31: Blood Urea Nitrogen 9, Creatinine 0.37L, Sodium Level 133L, Potassium Level 3.6 , Chloride Level 99, Carbon Dioxide Level 25, Calcium Level 8.6L, Aspartate Amino Transf (AST/SGOT) 17, Alanine Aminotransferase (ALT/SGPT) 26, Alkaline Phosphatase 66, Total Bilirubin 0.5#, Direct Bilirubin 0.1, Total Protein 5.8L, Albumin 2.3L, Albumin/Globulin Ratio 0.66L, Anion Gap 9, White Blood Count 11.2H , Red Blood Count 3.37L, Hemoglobin 10.7L, Hematocrit 31.9L, Mean Corpuscular Volume 94.7, Mean Corpuscular Hemoglobin 31.9, Mean Corpuscular Hemoglobin Concent 33.7, Red Cell Distribution Width 12.5, Platelet Count 341, Neutrophils (%) (Auto) 85.4H, Lymphocytes (%) (Auto) 7.0L, Monocytes (%) (Auto) 5.3H, Eosinophils (%) (Auto) 1.1, Basophils (%) (Auto) 0.2, Neutrophils # (Auto) 9.5H , Lymphocytes # (Auto) 0.9L, Monocytes # (Auto) 0.6, Eosinophils # (Auto) 0.1, Basophils # (Auto) 0.0, Glomerular Filtration Rate > 60.0, Large Unclassified Cells # 0.1, Large Unclassified Cells % 1.2 CBC/BMP Laboratory Tests 08/18/16 05:31 Calcium Level 8.6 L, Aspartate Amino Transf (AST/SGOT) 17, Alanine Aminotransferase (ALT/SGPT) 26, Alkaline Phosphatase 66, Total Bilirubin 0.5 #, Direct Bilirubin 0.1, Total Protein 5.8 L, Albumin 2.3 L, Red Blood Count 3.37 L , Mean Corpuscular Volume 94.7, Mean Corpuscular Hemoglobin 31.9, Mean Corpuscular Hemoglobin Concent 33.7, Red Cell Distribution Width 12.5, Neutrophils (%) (Auto) 85.4 H, Lymphocytes (%) (Auto) 7.0 L, Monocytes (%) (Auto ) 5.3 H, Eosinophils (%) (Auto) 1.1, Basophils (%) (Auto) 0.2, Neutrophils # ( Auto) 9.5 H, Lymphocytes # (Auto) 0.9 L, Monocytes # (Auto) 0.6, Eosinophils # ( Auto) 0.1, Basophils # (Auto) 0.0 Microbiology Microbiology 08/14/16 Blood Culture - Preliminary, Resulted No Growth after 72 hours. All specime... 08/14/16 Blood Culture - Preliminary, Resulted No Growth after 72 hours. All specime... ARIS COOK MD Aug 18, 2016 06:35
[2016-08-18] MEDS: ACETAMINOPHEN TAB 650MG DOSE (2X325MG) PO PRN (07:18)
[2016-08-18] MEDS: ATORVASTATIN 20 MG TAB PO SCH (08:45)
[2016-08-18] MEDS: TERBINAFINE 250 MG TABLET PO SCH (08:45)
[2016-08-18] MEDS: ENOXAPARIN 40 MG/0.4 ML SYRINGE (J1650) SC SCH (08:45)
[2016-08-18] MEDS: COSOPT OCUMETER PLUS 10ML (DORZOLAMIDE/TIMOLOL) OU SCH ×2 (08:46→21:13)
[2016-08-18] MEDS: KETOCONAZOLE 2% CREAM TOP SCH (08:46)
[2016-08-18] MEDS: LISINOPRIL 10 MG TAB PO SCH (08:50)
[2016-08-18] MEDS: VITAMIN D 1,000 INTERNATIONAL UNITS TABLET PO SCH (11:52)
[2016-08-18] MEDS: MAGNESIUM CHLORIDE 64 MG TABCR (SLO MAG) PO SCH (11:52)
[2016-08-18 14:00] VITALS: BP 100/55
[2016-08-18] MEDS: amLODIPine 5 MG TAB PO SCH (21:00)
[2016-08-18] MEDS: LATANOPROST 0.005% OPHTH SOLN 2.5 ML OU SCH (21:13)
[2016-08-18 22:00] VITALS: BP 113/64
[2016-08-19] MEDS: VANCOMYCIN HCL 1,000 MG, VIAL MATE ADAPTER 1 EACH in D5W 250 ML IV SCH ×2 (05:24→17:04)
[2016-08-19 06:00] VITALS: BP 150/67
[2016-08-19 06:01] LABS: BASO % 0.1 % (0.0-1.0); EOS # 0.1 K/mm3 (0.0-0.50); EOS % 1.3 % (0.0-3.0); LARGE UNSTAINED CELL # 0.1 K/mm3 (0.0-0.4); LARGE UNSTAINED CELL % 1.3 % (0.0-4.0); LYMPH # 1.1 K/mm3 (1.5-4.5); LYMPH % 11.4 % (24.0-44.0); MEAN CORPUSCULAR HEMOGLOBIN 31.1 pg (27.0-33.0); MEAN CORPUSCULAR HGB CONC 33.5 g/dl (32.0-36.5); MEAN CORPUSCULAR VOLUME 92.8 fl (80.0-96.0); MONO % 10.2 % (0.0-5.0); NEUTROPHILS # 7.4 K/mm3 (1.8-7.7); NEUTROPHILS % 75.6 % (36.0-66.0); PLATELET COUNT, AUTOMATED 343 k/mm3 (150-450); RED CELL DISTRIBUTION WIDTH 12.4 % (11.5-14.5); WHITE BLOOD COUNT 9.8 K/mm3 (4.0-10.0)
[2016-08-19 06:24] LABS: ALBUMIN 2.1 GM/DL (3.2-5.2); ALBUMIN/GLOBULIN RATIO 0.62 (1.00-1.93); ALKALINE PHOSPHATASE 62 U/L (45-117); ALT/SGPT 26 U/L (12-78); ANION GAP 9 MEQ/L (8-16); AST/SGOT 18 U/L (15-37); BILIRUBIN,TOTAL 0.4 MG/DL (0.2-1.0); BLOOD UREA NITROGEN 12 MG/DL (7-18); CALCIUM LEVEL 8.7 MG/DL (8.8-10.2); CARBON DIOXIDE LEVEL 25 MEQ/L (21-32); CHLORIDE LEVEL 99 MEQ/L (98-107); CREATININE FOR GFR 0.44 MG/DL (0.55-1.02); GLOMERULAR FILTRATION RATE > 60.0 (>32); GLUCOSE, FASTING 103 MG/DL (83-110); POTASSIUM SERUM 3.8 MEQ/L (3.5-5.1); SODIUM LEVEL 133 MEQ/L (136-145); TOTAL PROTEIN 5.5 GM/DL (6.4-8.2)
[2016-08-19] MEDS: LISINOPRIL 10 MG TAB PO SCH (08:47)
[2016-08-19] MEDS: ENOXAPARIN 40 MG/0.4 ML SYRINGE (J1650) SC SCH (08:47)
[2016-08-19] MEDS: ATORVASTATIN 20 MG TAB PO SCH (08:47)
[2016-08-19] MEDS: TERBINAFINE 250 MG TABLET PO SCH (08:47)
[2016-08-19] MEDS: KETOCONAZOLE 2% CREAM TOP SCH (08:48)
[2016-08-19] MEDS: COSOPT OCUMETER PLUS 10ML (DORZOLAMIDE/TIMOLOL) OU SCH ×2 (08:48→21:14)
--- NOTE | 2016-08-19 10:41 | IPNPDOC ---
Subjective Date Seen The patient was seen on 08/19/16. Subjective Chief Complaint/HPI The patient is a 81-year-old female admitted with a reason for visit of Cellulitis Of Left Lower Extremity. Events since last encounter the leg continues to be sore and red , swelling reducing , today is day 6 on iv antibiotics, no abdominal pain , nausea or vomiting or diarrhea. Objective Physical Examination General Exam: Positive: Alert, No Acute Distress Eye Exam: Positive: Conjunctiva & lids normal, EOMI, PERRLA, Negative: Sclera icteric ENT Exam: Positive: Atraumatic, Mucous membr. moist/pink, Pharynx Normal Neck Exam: Positive: Supple, Negative: JVD, thyromegaly Chest Exam: Positive: Clear to auscultation, Normal air movement Heart Exam: Positive: Normal S1, Normal S2, Rate Normal, Regular Rhythm, Negative: Murmurs, Rubs Abdomen Exam: Positive: Normal bowel sounds, Soft, Negative: Hepatospenomegaly, Tenderness Extremity Exam: Positive: Swelling (left), Tenderness (left) Skin Exam: Positive: Other skin issue (both feet with extremely dry skin with peeling and caluses and fungal infection in the interdigital spaces. ) Assessment /Plan Problems (1) Cellulitis of left lower extremity Status: Acute Problem Text: will continue with vancomycin blood cultures in progress. CRp again rising can go home with oral antibiotics. (2) Hyponatremia Status: Resolved Response to Treatment: Improving Problem Text: possibly related to HCTZ . it was held (3) Hypertension Status: Chronic Problem Text: wide fluctuations in bp changed the dosage and timing of the medications. (4) Hyperlipidemia Status: Chronic (5) Onychomycosis Status: Chronic Problem Text: of both feet follows with podiatry in [place] will continue ketoconazole cream started on terbinafine. Plan/VTE VTE Prophylaxis Ordered?: Yes VS, I&O, 24H, Fishbone Vital Signs/I&O Vital Signs Date Time Temp Pulse Resp B/P Pulse Ox O2 Delivery O2 Flow Rate FiO2 08/19/16 08:47 151/67 08/19/16 06:00 100.4 81 20 93 08/18/16 14:00 Room Air I&O- Last 24 Hours up to 6 AM 08/19/16 06:00 Intake Total 3540 ml Output Total 1000 ml Balance 2540 ml Laboratory Data 24H LABS Laboratory Tests 2 3/26/17 15:56: Vancomycin Level Trough 13.8 08/19/16 05:24: Blood Urea Nitrogen 12, Creatinine 0.44L, Sodium Level 133L, Potassium Level 3.8 , Chloride Level 99, Carbon Dioxide Level 25, Calcium Level 8.7L, Aspartate Amino Transf (AST/SGOT) 18, Alanine Aminotransferase (ALT/SGPT) 26, Alkaline Phosphatase 62, Total Bilirubin 0.4, Total Protein 5.5L, Albumin 2.1L, Albumin/ Globulin Ratio 0.62L, Anion Gap 9, White Blood Count 9.8, Red Blood Count 3.25L , Hemoglobin 10.1L, Hematocrit 30.1L, Mean Corpuscular Volume 92.8, Mean Corpuscular Hemoglobin 31.1, Mean Corpuscular Hemoglobin Concent 33.5, Red Cell Distribution Width 12.4, Platelet Count 343, Neutrophils (%) (Auto) 75.6H, Lymphocytes (%) (Auto) 11.4L, Monocytes (%) (Auto) 10.2H, Eosinophils (%) (Auto ) 1.3, Basophils (%) (Auto) 0.1, Neutrophils # (Auto) 7.4, Lymphocytes # (Auto) 1.1L, Monocytes # (Auto) 1.0H, Eosinophils # (Auto) 0.1, Basophils # (Auto) 0.0 , C-Reactive Protein, Quantitative 11.60H, Glomerular Filtration Rate > 60.0, Large Unclassified Cells # 0.1, Large Unclassified Cells % 1.3 CBC/BMP Laboratory Tests 08/19/16 05:24 Calcium Level 8.7 L, Aspartate Amino Transf (AST/SGOT) 18, Alanine Aminotransferase (ALT/SGPT) 26, Alkaline Phosphatase 62, Total Bilirubin 0.4, Total Protein 5.5 L, Albumin 2.1 L, Red Blood Count 3.25 L, Mean Corpuscular Volume 92.8, Mean Corpuscular Hemoglobin 31.1, Mean Corpuscular Hemoglobin Concent 33.5, Red Cell Distribution Width 12.4, Neutrophils (%) (Auto) 75.6 H, Lymphocytes (%) (Auto) 11.4 L, Monocytes (%) (Auto) 10.2 H, Eosinophils (%) ( Auto) 1.3, Basophils (%) (Auto) 0.1, Neutrophils # (Auto) 7.4, Lymphocytes # ( Auto) 1.1 L, Monocytes # (Auto) 1.0 H, Eosinophils # (Auto) 0.1, Basophils # ( Auto) 0.0 Microbiology Microbiology 08/14/16 Blood Culture - Preliminary, Resulted No Growth after 72 hours. All specime... 08/14/16 Blood Culture - Preliminary, Resulted No Growth after 72 hours. All specime... ARIS COOK MD Aug 19, 2016 10:41
[2016-08-19] MEDS: VITAMIN D 1,000 INTERNATIONAL UNITS TABLET PO SCH (12:20)
[2016-08-19] MEDS: MAGNESIUM CHLORIDE 64 MG TABCR (SLO MAG) PO SCH (12:20)
[2016-08-19 14:00] VITALS: BP 115/56
[2016-08-19] MEDS: amLODIPine 5 MG TAB PO SCH (21:14)
[2016-08-19] MEDS: LATANOPROST 0.005% OPHTH SOLN 2.5 ML OU SCH (21:14)
[2016-08-19 22:00] VITALS: BP 140/67
[2016-08-20] MEDS: VANCOMYCIN HCL 1,000 MG, VIAL MATE ADAPTER 1 EACH in D5W 250 ML IV SCH ×2 (05:42→17:28)
[2016-08-20 06:00] VITALS: BP 133/62
[2016-08-20 06:22] LABS: BASO % 0.1 % (0.0-1.0); EOS # 0.2 K/mm3 (0.0-0.50); EOS % 2.7 % (0.0-3.0); LARGE UNSTAINED CELL # 0.1 K/mm3 (0.0-0.4); LARGE UNSTAINED CELL % 1.1 % (0.0-4.0); LYMPH # 1.2 K/mm3 (1.5-4.5); LYMPH % 13.6 % (24.0-44.0); MEAN CORPUSCULAR HEMOGLOBIN 31.8 pg (27.0-33.0); MEAN CORPUSCULAR HGB CONC 34.3 g/dl (32.0-36.5); MEAN CORPUSCULAR VOLUME 92.6 fl (80.0-96.0); MONO # 0.8 K/mm3 (0.0-0.8); MONO % 9.4 % (0.0-5.0); NEUTROPHILS # 6.3 K/mm3 (1.8-7.7); PLATELET COUNT, AUTOMATED 407 k/mm3 (150-450); RED CELL DISTRIBUTION WIDTH 12.3 % (11.5-14.5); WHITE BLOOD COUNT 8.6 K/mm3 (4.0-10.0)
[2016-08-20 06:31] LABS: ALBUMIN/GLOBULIN RATIO 0.56 (1.00-1.93); ALKALINE PHOSPHATASE 66 U/L (45-117); ALT/SGPT 42 U/L (12-78); ANION GAP 8 MEQ/L (8-16); AST/SGOT 35 U/L (15-37); BILIRUBIN,TOTAL 0.4 MG/DL (0.2-1.0); BLOOD UREA NITROGEN 10 MG/DL (7-18); CALCIUM LEVEL 8.7 MG/DL (8.8-10.2); CARBON DIOXIDE LEVEL 26 MEQ/L (21-32); CHLORIDE LEVEL 99 MEQ/L (98-107); CREATININE FOR GFR 0.42 MG/DL (0.55-1.02); GLOMERULAR FILTRATION RATE > 60.0 (>32); GLUCOSE, FASTING 96 MG/DL (83-110); SODIUM LEVEL 133 MEQ/L (136-145); TOTAL PROTEIN 5.6 GM/DL (6.4-8.2)
[2016-08-20] MEDS: LISINOPRIL 10 MG TAB PO SCH (08:05)
[2016-08-20] MEDS: TERBINAFINE 250 MG TABLET PO SCH (08:43)
[2016-08-20] MEDS: ENOXAPARIN 40 MG/0.4 ML SYRINGE (J1650) SC SCH (08:44)
[2016-08-20] MEDS: ATORVASTATIN 20 MG TAB PO SCH (08:44)
[2016-08-20] MEDS: COSOPT OCUMETER PLUS 10ML (DORZOLAMIDE/TIMOLOL) OU SCH ×2 (08:46→20:41)
[2016-08-20] MEDS: KETOCONAZOLE 2% CREAM TOP SCH (08:46)
[2016-08-20] MEDS ORDERED: PIPERACILLIN/TAZOBACTAM SOD 3.375 GM in D5W MINI-BAG PLUS 50 ML IV SCH (10:00)
[2016-08-20 10:56] LABS: ERYTHROCYTE SEDIMENTATION RATE 70 mm/hr (0-30)
--- NOTE | 2016-08-20 12:41 | IPNPDOC ---
Subjective Date Seen The patient was seen on 08/20/16. Subjective Chief Complaint/HPI The patient is a 81-year-old female admitted with a reason for visit of Cellulitis Of Left Lower Extremity. Events since last encounter pt seen and examined, states her leg is more swollen today, no fever overnight, states pain has improved, Objective Physical Examination General Exam: Positive: Alert, No Acute Distress Eye Exam: Positive: Conjunctiva & lids normal, EOMI, PERRLA, Negative: Sclera icteric ENT Exam: Positive: Atraumatic, Mucous membr. moist/pink, Pharynx Normal Neck Exam: Positive: Supple, Negative: JVD, thyromegaly Chest Exam: Positive: Clear to auscultation, Normal air movement Heart Exam: Positive: Normal S1, Normal S2, Rate Normal, Regular Rhythm, Negative: Murmurs, Rubs Abdomen Exam: Positive: Normal bowel sounds, Soft, Negative: Hepatospenomegaly, Tenderness Extremity Exam: Positive: Swelling (left), Tenderness (left) Skin Exam: Positive: Other skin issue (both feet with extremely dry skin with peeling and caluses and fungal infection in the interdigital spaces. ) Assessment /Plan Problems (1) Cellulitis of left lower extremity Status: Acute Problem Text: * will continue with vancomycin will add zosyn * continue to monitor CRP and ESR * CRP is increasing (2) Hyponatremia Status: Resolved Response to Treatment: Stable Problem Text: * possibly related to HCTZ . it was held (3) Hypertension Status: Chronic Problem Text: wide fluctuations in bp changed the dosage and timing of the medications. (4) Hyperlipidemia Status: Chronic (5) Onychomycosis Status: Chronic Problem Text: of both feet follows with podiatry in [place] will continue ketoconazole cream started on terbinafine. Plan/VTE VTE Prophylaxis Ordered?: Yes VS, I&O, 24H, Fishbone Vital Signs/I&O Vital Signs Date Time Temp Pulse Resp B/P Pulse Ox O2 Delivery O2 Flow Rate FiO2 08/20/16 08:05 133/62 08/20/16 06:00 99.8 81 18 97 Room Air I&O- Last 24 Hours up to 6 AM 08/20/16 05:59 Intake Total 3120 ml Output Total 2050 ml Balance 1070 ml Laboratory Data 24H LABS Laboratory Tests 2 08/20/16 05:48: Blood Urea Nitrogen 10, Creatinine 0.42L, Sodium Level 133L, Potassium Level 4.0 , Chloride Level 99, Carbon Dioxide Level 26, Calcium Level 8.7L, Aspartate Amino Transf (AST/SGOT) 35, Alanine Aminotransferase (ALT/SGPT) 42, Alkaline Phosphatase 66, Total Bilirubin 0.4, Total Protein 5.6L, Albumin 2.0L, Albumin/ Globulin Ratio 0.56L, Anion Gap 8, White Blood Count 8.6, Red Blood Count 3.28L , Hemoglobin 10.4L, Hematocrit 30.4L, Mean Corpuscular Volume 92.6, Mean Corpuscular Hemoglobin 31.8, Mean Corpuscular Hemoglobin Concent 34.3, Red Cell Distribution Width 12.3, Platelet Count 407, Neutrophils (%) (Auto) 73.0H, Lymphocytes (%) (Auto) 13.6L, Monocytes (%) (Auto) 9.4H, Eosinophils (%) (Auto) 2.7, Basophils (%) (Auto) 0.1, Neutrophils # (Auto) 6.3, Lymphocytes # (Auto) 1.2L, Monocytes # (Auto) 0.8, Eosinophils # (Auto) 0.2, Basophils # (Auto) 0.0, Erythrocyte Sedimentation Rate 70H, Glomerular Filtration Rate > 60.0, Large Unclassified Cells # 0.1, Large Unclassified Cells % 1.1 CBC/BMP Laboratory Tests 08/20/16 05:48 Calcium Level 8.7 L, Aspartate Amino Transf (AST/SGOT) 35, Alanine Aminotransferase (ALT/SGPT) 42, Alkaline Phosphatase 66, Total Bilirubin 0.4, Total Protein 5.6 L, Albumin 2.0 L, Red Blood Count 3.28 L, Mean Corpuscular Volume 92.6, Mean Corpuscular Hemoglobin 31.8, Mean Corpuscular Hemoglobin Concent 34.3, Red Cell Distribution Width 12.3, Neutrophils (%) (Auto) 73.0 H, Lymphocytes (%) (Auto) 13.6 L, Monocytes (%) (Auto) 9.4 H, Eosinophils (%) (Auto ) 2.7, Basophils (%) (Auto) 0.1, Neutrophils # (Auto) 6.3, Lymphocytes # (Auto) 1.2 L, Monocytes # (Auto) 0.8, Eosinophils # (Auto) 0.2, Basophils # (Auto) 0.0 Microbiology Microbiology 08/14/16 Blood Culture - Final, Complete NO GROWTH AFTER 5 DAYS 08/14/16 Blood Culture - Final, Complete NO GROWTH AFTER 5 DAYS PARTH TRAYLOR DO Aug 20, 2016 12:41
[2016-08-20 13:00] VITALS: BP 169/77
[2016-08-20] MEDS: VITAMIN D 1,000 INTERNATIONAL UNITS TABLET PO SCH (13:21)
[2016-08-20] MEDS: PIPERACILLIN/TAZOBACTAM SOD 3.375 GM in D5W MINI-BAG PLUS 50 ML IV SCH ×2 (13:21→18:50)
[2016-08-20] MEDS: MAGNESIUM CHLORIDE 64 MG TABCR (SLO MAG) PO SCH (13:21)
--- NOTE | 2016-08-20 17:09 | REP ---
Procedure: PICC line insertion with Site-Rityuliet The procedure was performed under the direct supervision of Dr. Borges. The risks and benefits of the procedure were explained to the patient and informed consent was obtained. The right basilic vein was localized using ultrasound guidance. The skin was prepped and draped in a sterile fashion. 2% lidocaine was used as a local anesthetic. Using ultrasound guidance the basilic vein was cannulated and a 0.018 guidewire was inserted and advanced to the SVC using fluoroscopic guidance. The needle was removed and a 4.5 [place] dilator and peel-away sheath was inserted over the guide wire. A 4.5 [place] single lumen catheter was cut to length of 43 cm. The dilator was removed and the catheter was inserted over the guide wire with the tip ending in the SVC. The peel-away sheath was removed and the catheter was flushed with heparinized saline as per Hospital protocol. The catheter was affixed to the skin and a sterile dressing was applied. The the patient tolerated the procedure well and there were no immediate complications. 0.2 minutes of fluoro time was utilized for this procedure. Reviewed by EL Gustafson 08/20/2016 03:45 PSigned by Jason Borges MD 08/20/2016 05:00 P
[2016-08-20] MEDS: SODIUM CHLORIDE 0.9% INJ 10 ML SYR IV SCH (17:28)
[2016-08-20] MEDS: LATANOPROST 0.005% OPHTH SOLN 2.5 ML OU SCH (20:40)
[2016-08-20] MEDS: amLODIPine 5 MG TAB PO SCH (20:40)
[2016-08-20 22:00] VITALS: BP 138/76
[2016-08-21] MEDS: PIPERACILLIN/TAZOBACTAM SOD 3.375 GM in D5W MINI-BAG PLUS 50 ML IV SCH ×4 (00:57→18:39)
[2016-08-21] MEDS: VANCOMYCIN HCL 1,000 MG, VIAL MATE ADAPTER 1 EACH in D5W 250 ML IV SCH ×2 (04:55→17:14)
[2016-08-21] MEDS: SODIUM CHLORIDE 0.9% INJ 10 ML SYR IV SCH ×2 (04:55→18:00)
[2016-08-21 06:00] VITALS: BP 128/62
[2016-08-21] MEDS: SODIUM CHLORIDE 0.9% INJ 10 ML SYR IV PRN ×3 (06:55→14:32)
[2016-08-21] MEDS: TERBINAFINE 250 MG TABLET PO SCH (08:33)
[2016-08-21] MEDS: LISINOPRIL 10 MG TAB PO SCH (08:34)
[2016-08-21] MEDS: ATORVASTATIN 20 MG TAB PO SCH (08:35)
[2016-08-21] MEDS: ENOXAPARIN 40 MG/0.4 ML SYRINGE (J1650) SC SCH (08:36)
[2016-08-21] MEDS: COSOPT OCUMETER PLUS 10ML (DORZOLAMIDE/TIMOLOL) OU SCH ×2 (08:37→20:36)
[2016-08-21] MEDS: KETOCONAZOLE 2% CREAM TOP SCH (08:38)
[2016-08-21 09:00] LABS: BASO % 0.4 % (0.0-1.0); EOS # 0.2 K/mm3 (0.0-0.50); EOS % 3.2 % (0.0-3.0); LARGE UNSTAINED CELL # 0.1 K/mm3 (0.0-0.4); LARGE UNSTAINED CELL % 1.5 % (0.0-4.0); LYMPH # 0.9 K/mm3 (1.5-4.5); LYMPH % 12.3 % (24.0-44.0); MEAN CORPUSCULAR HEMOGLOBIN 31.9 pg (27.0-33.0); MEAN CORPUSCULAR HGB CONC 34.2 g/dl (32.0-36.5); MEAN CORPUSCULAR VOLUME 93.3 fl (80.0-96.0); MONO # 0.5 K/mm3 (0.0-0.8); MONO % 7.6 % (0.0-5.0); NEUTROPHILS # 5.4 K/mm3 (1.8-7.7); PLATELET COUNT, AUTOMATED 424 k/mm3 (150-450); RED CELL DISTRIBUTION WIDTH 12.3 % (11.5-14.5); WHITE BLOOD COUNT 7.2 K/mm3 (4.0-10.0)
[2016-08-21 10:03] LABS: ALBUMIN 2.4 GM/DL (3.2-5.2); ALBUMIN/GLOBULIN RATIO 0.77 (1.00-1.93); ALKALINE PHOSPHATASE 76 U/L (45-117); ALT/SGPT 58 U/L (12-78); ANION GAP 9 MEQ/L (8-16); AST/SGOT 39 U/L (15-37); BILIRUBIN,TOTAL 0.6 MG/DL (0.2-1.0); BLOOD UREA NITROGEN 10 MG/DL (7-18); CALCIUM LEVEL 8.8 MG/DL (8.8-10.2); CARBON DIOXIDE LEVEL 27 MEQ/L (21-32); CHLORIDE LEVEL 99 MEQ/L (98-107); CREATININE FOR GFR 0.57 MG/DL (0.55-1.02); GLOMERULAR FILTRATION RATE > 60.0 (>32); GLUCOSE, FASTING 144 MG/DL (83-110); POTASSIUM SERUM 4.3 MEQ/L (3.5-5.1); SODIUM LEVEL 135 MEQ/L (136-145); TOTAL PROTEIN 5.5 GM/DL (6.4-8.2)
[2016-08-21] MEDS: MAGNESIUM CHLORIDE 64 MG TABCR (SLO MAG) PO SCH (12:48)
[2016-08-21] MEDS: VITAMIN D 1,000 INTERNATIONAL UNITS TABLET PO SCH (12:48)
[2016-08-21 14:00] VITALS: BP 157/74
--- NOTE | 2016-08-21 14:13 | IPNPDOC ---
Subjective Date Seen The patient was seen on 08/21/16. Subjective Chief Complaint/HPI The patient is a 81-year-old female admitted with a reason for visit of Cellulitis Of Left Lower Extremity. Events since last encounter pt seen and examined, doing well, feels better today, states she feels her leg is less red and less swollen than yesterday, no overnight fevers. Constitutional: Denies: Chills, Fever, Night Sweats Musculoskeletal: Reports: Foot Pain, Leg Pain Objective Physical Examination General Exam: Positive: Alert, No Acute Distress Eye Exam: Positive: Conjunctiva & lids normal, EOMI, PERRLA, Negative: Sclera icteric ENT Exam: Positive: Atraumatic, Mucous membr. moist/pink, Pharynx Normal Neck Exam: Positive: Supple, Negative: JVD, thyromegaly Chest Exam: Positive: Clear to auscultation, Normal air movement Heart Exam: Positive: Normal S1, Normal S2, Rate Normal, Regular Rhythm, Negative: Murmurs, Rubs Abdomen Exam: Positive: Normal bowel sounds, Soft, Negative: Hepatospenomegaly, Tenderness Extremity Exam: Positive: Swelling (left), Tenderness (left) Skin Exam: Positive: Other skin issue (both feet with extremely dry skin with peeling and caluses and fungal infection in the interdigital spaces. ) Assessment /Plan Problems (1) Cellulitis of left lower extremity Status: Acute Response to Treatment: Improving Problem Text: * will continue with vancomycin and zosyn * continue to monitor CRP and ESR * CRP is trending down (2) Hyponatremia Status: Resolved Response to Treatment: Stable Problem Text: * possibly related to HCTZ . it was held (3) Hypertension Status: Chronic Problem Text: wide fluctuations in bp changed the dosage and timing of the medications. (4) Hyperlipidemia Status: Chronic (5) Onychomycosis Status: Chronic Problem Text: of both feet follows with podiatry in [place] will continue ketoconazole cream started on terbinafine. Plan/VTE VTE Prophylaxis Ordered?: Yes VS, I&O, 24H, Fishbone Vital Signs/I&O Vital Signs Date Time Temp Pulse Resp B/P Pulse Ox O2 Delivery O2 Flow Rate FiO2 08/21/16 08:34 169/77 08/21/16 06:00 98.9 87 18 97 Room Air I&O- Last 24 Hours up to 6 AM 08/21/16 05:59 Intake Total 2230 ml Output Total 2250 ml Balance -20 ml Laboratory Data 24H LABS Laboratory Tests 2 08/21/16 08:21: Blood Urea Nitrogen 10, Creatinine 0.57, Sodium Level 135L, Potassium Level 4.3 , Chloride Level 99, Carbon Dioxide Level 27, Calcium Level 8.8, Aspartate Amino Transf (AST/SGOT) 39H, Alanine Aminotransferase (ALT/SGPT) 58, Alkaline Phosphatase 76, Total Bilirubin 0.6, Total Protein 5.5L, Albumin 2.4L, Albumin/ Globulin Ratio 0.77L, Anion Gap 9, White Blood Count 7.2, Red Blood Count 3.45L , Hemoglobin 11.0L, Hematocrit 32.2L, Mean Corpuscular Volume 93.3, Mean Corpuscular Hemoglobin 31.9, Mean Corpuscular Hemoglobin Concent 34.2, Red Cell Distribution Width 12.3, Platelet Count 424, Neutrophils (%) (Auto) 75.0H, Lymphocytes (%) (Auto) 12.3L, Monocytes (%) (Auto) 7.6H, Eosinophils (%) (Auto) 3.2H, Basophils (%) (Auto) 0.4, Neutrophils # (Auto) 5.4, Lymphocytes # (Auto) 0.9L, Monocytes # (Auto) 0.5, Eosinophils # (Auto) 0.2, Basophils # (Auto) 0.0, Glomerular Filtration Rate > 60.0, Large Unclassified Cells # 0.1, Large Unclassified Cells % 1.5 CBC/BMP Laboratory Tests 08/21/16 08:21 Calcium Level 8.8, Aspartate Amino Transf (AST/SGOT) 39 H, Alanine Aminotransferase (ALT/SGPT) 58, Alkaline Phosphatase 76, Total Bilirubin 0.6, Total Protein 5.5 L, Albumin 2.4 L, Red Blood Count 3.45 L, Mean Corpuscular Volume 93.3, Mean Corpuscular Hemoglobin 31.9, Mean Corpuscular Hemoglobin Concent 34.2, Red Cell Distribution Width 12.3, Neutrophils (%) (Auto) 75.0 H, Lymphocytes (%) (Auto) 12.3 L, Monocytes (%) (Auto) 7.6 H, Eosinophils (%) (Auto ) 3.2 H, Basophils (%) (Auto) 0.4, Neutrophils # (Auto) 5.4, Lymphocytes # (Auto ) 0.9 L, Monocytes # (Auto) 0.5, Eosinophils # (Auto) 0.2, Basophils # (Auto) 0.0 Microbiology Microbiology 08/14/16 Blood Culture - Final, Complete NO GROWTH AFTER 5 DAYS 08/14/16 Blood Culture - Final, Complete NO GROWTH AFTER 5 DAYS PARTH TRAYLOR DO Aug 21, 2016 14:12
[2016-08-21] MEDS: LATANOPROST 0.005% OPHTH SOLN 2.5 ML OU SCH (20:36)
[2016-08-21] MEDS: amLODIPine 5 MG TAB PO SCH (20:36)
[2016-08-21] MEDS: TRIAMCINOLONE ACET 0.1% CREAM 80 GM TOP PRN (20:37)
[2016-08-21 22:00] VITALS: BP 143/74
[2016-08-22] MEDS: PIPERACILLIN/TAZOBACTAM SOD 3.375 GM in D5W MINI-BAG PLUS 50 ML IV SCH ×4 (00:33→18:29)
--- NOTE | 2016-08-22 05:11 | PHACANCOPD ---
PHARMACY VANCOMYCIN DOSING Pt Demographics Demographics Patient Age:81 , Weight:53.900 , Gender: female Adjusted Body Weight Date: 08/14/16, Adjusted Body Weight: [54.4] Kg Events Past 24 Hours Events Past 24 Hours: NO: Change in CrCl, Dialysis, Diuretic Therapy, Elevation in WBC, Fever, Other, Pending Diagnostics, Pending Procedures Vancomycin Vancomycin indication: CELLULITIS Vancomycin Target Ranges: 15-20 mcg/ml Vancomycin Load Y/N: No Load Dose Date Time Vancomycin Load Dose: Date: Time: Vancomycin Dose Date: 08/16/16. Current Vancomycin Dose:1000MG Q12H Intermittent Dosing?: No Labs Labs Item Value Date Time Creatinine 0.57 MG/DL 08/21/16 0821 White Blood Count 7.2 K/mm3 08/21/16 0821 Vancomycin Level Trough 15.3 UG/ML 08/22/16 0422 Vital Signs Label Value Date Time Patient Temperature 98.1 degrees F 08/21/16 2200 Temperature Source Temporal 08/21/16 2200 Micro Microbiology 08/14/16 Blood Culture - Final, Complete NO GROWTH AFTER 5 DAYS 08/14/16 Blood Culture - Final, Complete NO GROWTH AFTER 5 DAYS Creatinine Clearance Date:08/22/16. Creatinine Clearance: [73ML/MIN]. Assessment and Plan Maintaining Current Dose?: Yes Reason for dose change: No Dose Change Pharmacist Note Pharmacist Note Date: 08/22/16. Pharmacist note:Trough of 15.3 is within target range. Will continue current dosing. Will continue to monitor and make adjustments as needed. ENIO RIVAS PHARMACY Aug 22, 2016 05:11
[2016-08-22] MEDS: VANCOMYCIN HCL 1,000 MG, VIAL MATE ADAPTER 1 EACH in D5W 250 ML IV SCH ×2 (05:13→17:02)
[2016-08-22] MEDS: SODIUM CHLORIDE 0.9% INJ 10 ML SYR IV SCH ×2 (05:13→18:29)
[2016-08-22 06:00] VITALS: BP 116/57
[2016-08-22 06:00] LABS: ALBUMIN 2.2 GM/DL (3.2-5.2); ALBUMIN/GLOBULIN RATIO 0.63 (1.00-1.93); ALKALINE PHOSPHATASE 68 U/L (45-117); ALT/SGPT 49 U/L (12-78); ANION GAP 6 MEQ/L (8-16); AST/SGOT 30 U/L (15-37); BILIRUBIN,TOTAL 0.4 MG/DL (0.2-1.0); BLOOD UREA NITROGEN 10 MG/DL (7-18); CALCIUM LEVEL 8.9 MG/DL (8.8-10.2); CARBON DIOXIDE LEVEL 27 MEQ/L (21-32); CHLORIDE LEVEL 101 MEQ/L (98-107); CREATININE FOR GFR 0.54 MG/DL (0.55-1.02); GLOMERULAR FILTRATION RATE > 60.0 (>32); GLUCOSE, FASTING 100 MG/DL (83-110); SODIUM LEVEL 134 MEQ/L (136-145); TOTAL PROTEIN 5.7 GM/DL (6.4-8.2)
[2016-08-22 06:01] LABS: MEAN CORPUSCULAR HEMOGLOBIN 31.2 pg (27.0-33.0); MEAN CORPUSCULAR HGB CONC 33.3 g/dl (32.0-36.5); MEAN CORPUSCULAR VOLUME 93.7 fl (80.0-96.0); RED CELL DISTRIBUTION WIDTH 12.3 % (11.5-14.5); WHITE BLOOD COUNT 6.8 K/mm3 (4.0-10.0)
[2016-08-22] MEDS: TERBINAFINE 250 MG TABLET PO SCH (08:21)
[2016-08-22] MEDS: ENOXAPARIN 40 MG/0.4 ML SYRINGE (J1650) SC SCH (08:21)
[2016-08-22] MEDS: ATORVASTATIN 20 MG TAB PO SCH (08:22)
[2016-08-22] MEDS: KETOCONAZOLE 2% CREAM TOP SCH (08:23)
[2016-08-22] MEDS: COSOPT OCUMETER PLUS 10ML (DORZOLAMIDE/TIMOLOL) OU SCH ×2 (08:24→20:15)
[2016-08-22] MEDS: LISINOPRIL 10 MG TAB PO SCH (08:24)
[2016-08-22] MEDS: VITAMIN D 1,000 INTERNATIONAL UNITS TABLET PO SCH (12:31)
[2016-08-22] MEDS: MAGNESIUM CHLORIDE 64 MG TABCR (SLO MAG) PO SCH (12:32)
[2016-08-22] MEDS: SODIUM CHLORIDE 0.9% INJ 10 ML SYR IV PRN (12:34)
[2016-08-22 14:00] VITALS: BP 138/65
--- NOTE | 2016-08-22 15:04 | REP ---
Clinical: Pain and swelling . Technique: Freeman scale and color Doppler evaluation using linear high frequency transducer. Findings: Ultrasound examination of the left lower extremity deep venous structures from the common femoral vein to the popliteal vein demonstrates normal compressibility flow and wave patterns in response to respiration and augmentation. There is no evidence for deep venous thrombosis. Subcutaneous edema is appreciated along with left groin node measuring 20 x 8 x 20 mm. Impression: No evidence for deep venous thrombosis. Signed by Star Painter MD 08/22/2016 02:56 P
--- NOTE | 2016-08-22 16:06 | IPNPDOC ---
Subjective Date Seen The patient was seen on 08/22/16. Subjective Chief Complaint/HPI The patient is a 81-year-old female admitted with a reason for visit of Cellulitis Of Left Lower Extremity. Events since last encounter pt seen and examined doing well, her legs look better but complaining of pain when she stands up for a prolonged period of time, swelling and redness improving, no overnight fevers or chills Objective Physical Examination General Exam: Positive: Alert, No Acute Distress Eye Exam: Positive: Conjunctiva & lids normal, EOMI, PERRLA, Negative: Sclera icteric ENT Exam: Positive: Atraumatic, Mucous membr. moist/pink, Pharynx Normal Neck Exam: Positive: Supple, Negative: JVD, thyromegaly Chest Exam: Positive: Clear to auscultation, Normal air movement Heart Exam: Positive: Normal S1, Normal S2, Rate Normal, Regular Rhythm, Negative: Murmurs, Rubs Abdomen Exam: Positive: Normal bowel sounds, Soft, Negative: Hepatospenomegaly, Tenderness Extremity Exam: Positive: Swelling (left), Tenderness (left) Skin Exam: Positive: Other skin issue (both feet with extremely dry skin with peeling and caluses and fungal infection in the interdigital spaces. ) Assessment /Plan Problems (1) Cellulitis of left lower extremity Status: Acute Response to Treatment: Improving Problem Text: * will continue with vancomycin and zosyn * continue to monitor CRP and ESR * CRP is trending down * will repeat lower extremity ultrasound to rule out DVT, initial one was negative for dvt (2) Hyponatremia Status: Resolved Response to Treatment: Stable Problem Text: * possibly related to HCTZ . it was held (3) Hypertension Status: Chronic Problem Text: wide fluctuations in bp changed the dosage and timing of the medications. (4) Hyperlipidemia Status: Chronic (5) Onychomycosis Status: Chronic Problem Text: of both feet follows with podiatry in [place] will continue ketoconazole cream started on terbinafine. Plan/VTE VTE Prophylaxis Ordered?: Yes VS, I&O, 24H, Fishbone Vital Signs/I&O Vital Signs Date Time Temp Pulse Resp B/P Pulse Ox O2 Delivery O2 Flow Rate FiO2 08/22/16 14:00 97.9 72 18 138/65 96 Room Air I&O- Last 24 Hours up to 6 AM 08/22/16 06:00 Intake Total 2440 ml Output Total 2250 ml Balance 190 ml Laboratory Data 24H LABS Laboratory Tests 2 08/22/16 04:22: Vancomycin Level Trough 15.3 08/22/16 05:19: Blood Urea Nitrogen 10, Creatinine 0.54L, Sodium Level 134L, Potassium Level 4.0 , Chloride Level 101, Carbon Dioxide Level 27, Calcium Level 8.9, Aspartate Amino Transf (AST/SGOT) 30, Alanine Aminotransferase (ALT/SGPT) 49, Alkaline Phosphatase 68, Total Bilirubin 0.4, Total Protein 5.7L, Albumin 2.2L, Albumin/ Globulin Ratio 0.63L, Anion Gap 6L, C-Reactive Protein, Quantitative 4.25H, Erythrocyte Sedimentation Rate 68H, Glomerular Filtration Rate > 60.0 CBC/BMP Laboratory Tests 08/22/16 05:19 Calcium Level 8.9, Aspartate Amino Transf (AST/SGOT) 30, Alanine Aminotransferase (ALT/SGPT) 49, Alkaline Phosphatase 68, Total Bilirubin 0.4, Total Protein 5.7 L, Albumin 2.2 L, Red Blood Count 3.23 L, Mean Corpuscular Volume 93.7, Mean Corpuscular Hemoglobin 31.2, Mean Corpuscular Hemoglobin Concent 33.3, Red Cell Distribution Width 12.3 Microbiology Microbiology 08/14/16 Blood Culture - Final, Complete NO GROWTH AFTER 5 DAYS 08/14/16 Blood Culture - Final, Complete NO GROWTH AFTER 5 DAYS PARTH TRAYLOR DO Aug 22, 2016 16:06
[2016-08-22] MEDS: amLODIPine 5 MG TAB PO SCH (20:15)
[2016-08-22] MEDS: LATANOPROST 0.005% OPHTH SOLN 2.5 ML OU SCH (20:15)
[2016-08-22 22:00] VITALS: BP 162/42
[2016-08-23] MEDS: PIPERACILLIN/TAZOBACTAM SOD 3.375 GM in D5W MINI-BAG PLUS 50 ML IV SCH ×4 (00:11→19:15)
[2016-08-23] MEDS: VANCOMYCIN HCL 1,000 MG, VIAL MATE ADAPTER 1 EACH in D5W 250 ML IV SCH ×2 (05:17→17:06)
[2016-08-23] MEDS: SODIUM CHLORIDE 0.9% INJ 10 ML SYR IV SCH ×2 (05:18→17:06)
[2016-08-23 05:38] LABS: MEAN CORPUSCULAR HEMOGLOBIN 31.3 pg (27.0-33.0); MEAN CORPUSCULAR HGB CONC 33.6 g/dl (32.0-36.5); MEAN CORPUSCULAR VOLUME 93.3 fl (80.0-96.0); RED CELL DISTRIBUTION WIDTH 12.4 % (11.5-14.5); WHITE BLOOD COUNT 7.6 K/mm3 (4.0-10.0)
[2016-08-23 05:57] LABS: ALBUMIN 2.3 GM/DL (3.2-5.2); ALBUMIN/GLOBULIN RATIO 0.74 (1.00-1.93); ALKALINE PHOSPHATASE 78 U/L (45-117); ALT/SGPT 44 U/L (12-78); ANION GAP 8 MEQ/L (8-16); AST/SGOT 22 U/L (15-37); BILIRUBIN,TOTAL 0.3 MG/DL (0.2-1.0); BLOOD UREA NITROGEN 11 MG/DL (7-18); CALCIUM LEVEL 8.7 MG/DL (8.8-10.2); CARBON DIOXIDE LEVEL 27 MEQ/L (21-32); CHLORIDE LEVEL 99 MEQ/L (98-107); CREATININE FOR GFR 0.49 MG/DL (0.55-1.02); GLOMERULAR FILTRATION RATE > 60.0 (>32); GLUCOSE, FASTING 93 MG/DL (83-110); POTASSIUM SERUM 4.3 MEQ/L (3.5-5.1); SODIUM LEVEL 134 MEQ/L (136-145); TOTAL PROTEIN 5.4 GM/DL (6.4-8.2)
[2016-08-23 06:00] VITALS: BP 135/64
[2016-08-23] MEDS: ATORVASTATIN 20 MG TAB PO SCH (10:01)
[2016-08-23] MEDS: TERBINAFINE 250 MG TABLET PO SCH (10:01)
[2016-08-23] MEDS: ENOXAPARIN 40 MG/0.4 ML SYRINGE (J1650) SC SCH (10:02)
[2016-08-23] MEDS: COSOPT OCUMETER PLUS 10ML (DORZOLAMIDE/TIMOLOL) OU SCH ×2 (10:02→21:53)
[2016-08-23] MEDS: KETOCONAZOLE 2% CREAM TOP SCH (10:02)
[2016-08-23] MEDS: LISINOPRIL 10 MG TAB PO SCH (10:02)
[2016-08-23] MEDS: MAGNESIUM CHLORIDE 64 MG TABCR (SLO MAG) PO SCH (13:08)
[2016-08-23] MEDS: VITAMIN D 1,000 INTERNATIONAL UNITS TABLET PO SCH (13:08)
[2016-08-23 14:00] VITALS: BP 126/62
--- NOTE | 2016-08-23 14:13 | IPNPDOC ---
Subjective Date Seen The patient was seen on 08/23/16. Subjective Chief Complaint/HPI The patient is a 81-year-old female admitted with a reason for visit of Cellulitis Of Left Lower Extremity. Events since last encounter pt seen and examined doing well leg improving Constitutional: Denies: Chills, Fever, Night Sweats Cardiovascular: Denies: Chest Pain, Lt Headedness, Orthopnea, Palpitations, Paroxysmal Noc. Dyspnea Gastrointestinal: Denies: Abdominal Pain, Constipation, Diarrhea, Nausea, Vomiting Objective Physical Examination General Exam: Positive: Alert, No Acute Distress Eye Exam: Positive: Conjunctiva & lids normal, EOMI, PERRLA, Negative: Sclera icteric ENT Exam: Positive: Atraumatic, Mucous membr. moist/pink, Pharynx Normal Neck Exam: Positive: Supple, Negative: JVD, thyromegaly Chest Exam: Positive: Clear to auscultation, Normal air movement Heart Exam: Positive: Normal S1, Normal S2, Rate Normal, Regular Rhythm, Negative: Murmurs, Rubs Abdomen Exam: Positive: Normal bowel sounds, Soft, Negative: Hepatospenomegaly, Tenderness Extremity Exam: Positive: Swelling (left), Tenderness (left) Skin Exam: Positive: Other skin issue (both feet with extremely dry skin with peeling and caluses and fungal infection in the interdigital spaces. ) Assessment /Plan Problems (1) Diarrhea Status: Acute Problem Text: * will order cdiff (2) Cellulitis of left lower extremity Status: Acute Response to Treatment: Improving Problem Text: * will continue with vancomycin and zosyn * continue to monitor CRP and ESR * CRP is trending down * no dvt (3) Hyponatremia Status: Chronic Response to Treatment: Stable Problem Text: * possibly related to HCTZ . it was held (4) Hypertension Status: Chronic Problem Text: * wide fluctuations in bp changed the dosage and timing of the medications (5) Hyperlipidemia Status: Chronic (6) Onychomycosis Status: Chronic Problem Text: of both feet follows with podiatry in [place] will continue ketoconazole cream started on terbinafine. Plan/VTE VTE Prophylaxis Ordered?: Yes VS, I&O, 24H, Fishbone Vital Signs/I&O Vital Signs Date Time Temp Pulse Resp B/P Pulse Ox O2 Delivery O2 Flow Rate FiO2 08/23/16 10:02 130/72 08/23/16 06:00 98.2 74 18 95 Room Air I&O- Last 24 Hours up to 6 AM 08/23/16 06:00 Intake Total 2420 ml Output Total 1800 ml Balance 620 ml Laboratory Data 24H LABS Laboratory Tests 2 08/23/16 05:13: Blood Urea Nitrogen 11, Creatinine 0.49L, Sodium Level 134L, Potassium Level 4.3 , Chloride Level 99, Carbon Dioxide Level 27, Calcium Level 8.7L, Aspartate Amino Transf (AST/SGOT) 22, Alanine Aminotransferase (ALT/SGPT) 44, Alkaline Phosphatase 78, Total Bilirubin 0.3, Total Protein 5.4L, Albumin 2.3L, Albumin/ Globulin Ratio 0.74L, Anion Gap 8, Glomerular Filtration Rate > 60.0 CBC/BMP Laboratory Tests 08/23/16 05:13 Calcium Level 8.7 L, Aspartate Amino Transf (AST/SGOT) 22, Alanine Aminotransferase (ALT/SGPT) 44, Alkaline Phosphatase 78, Total Bilirubin 0.3, Total Protein 5.4 L, Albumin 2.3 L, Red Blood Count 3.14 L, Mean Corpuscular Volume 93.3, Mean Corpuscular Hemoglobin 31.3, Mean Corpuscular Hemoglobin Concent 33.6, Red Cell Distribution Width 12.4 Microbiology Microbiology 08/14/16 Blood Culture - Final, Complete NO GROWTH AFTER 5 DAYS 08/14/16 Blood Culture - Final, Complete NO GROWTH AFTER 5 DAYS PARTH TRAYLOR DO Aug 23, 2016 14:13
[2016-08-23] MEDS: LATANOPROST 0.005% OPHTH SOLN 2.5 ML OU SCH (21:53)
[2016-08-23] MEDS: amLODIPine 5 MG TAB PO SCH (21:53)
[2016-08-23 22:00] VITALS: BP 139/71
[2016-08-24] MEDS: PIPERACILLIN/TAZOBACTAM SOD 3.375 GM in D5W MINI-BAG PLUS 50 ML IV SCH ×4 (01:12→18:32)
[2016-08-24] MEDS: VANCOMYCIN HCL 1,000 MG, VIAL MATE ADAPTER 1 EACH in D5W 250 ML IV SCH ×2 (04:39→17:12)
[2016-08-24] MEDS: SODIUM CHLORIDE 0.9% INJ 10 ML SYR IV SCH ×2 (04:39→18:33)
[2016-08-24 06:00] VITALS: BP 120/55
[2016-08-24 06:20] LABS: MEAN CORPUSCULAR HEMOGLOBIN 31.6 pg (27.0-33.0); MEAN CORPUSCULAR VOLUME 92.8 fl (80.0-96.0); RED CELL DISTRIBUTION WIDTH 12.4 % (11.5-14.5); WHITE BLOOD COUNT 9.3 K/mm3 (4.0-10.0)
[2016-08-24 06:26] LABS: ALBUMIN 2.2 GM/DL (3.2-5.2); ALBUMIN/GLOBULIN RATIO 0.59 (1.00-1.93); ALKALINE PHOSPHATASE 75 U/L (45-117); ALT/SGPT 35 U/L (12-78); ANION GAP 8 MEQ/L (8-16); AST/SGOT 16 U/L (15-37); BILIRUBIN,TOTAL 0.3 MG/DL (0.2-1.0); BLOOD UREA NITROGEN 8 MG/DL (7-18); CALCIUM LEVEL 8.5 MG/DL (8.8-10.2); CARBON DIOXIDE LEVEL 28 MEQ/L (21-32); CHLORIDE LEVEL 100 MEQ/L (98-107); GLOMERULAR FILTRATION RATE > 60.0 (>32); GLUCOSE, FASTING 126 MG/DL (83-110); POTASSIUM SERUM 3.6 MEQ/L (3.5-5.1); SODIUM LEVEL 136 MEQ/L (136-145); TOTAL PROTEIN 5.9 GM/DL (6.4-8.2)
[2016-08-24] MEDS: COSOPT OCUMETER PLUS 10ML (DORZOLAMIDE/TIMOLOL) OU SCH ×2 (09:56→21:53)
[2016-08-24] MEDS: KETOCONAZOLE 2% CREAM TOP SCH (09:56)
[2016-08-24] MEDS: ENOXAPARIN 40 MG/0.4 ML SYRINGE (J1650) SC SCH (09:57)
[2016-08-24] MEDS: TERBINAFINE 250 MG TABLET PO SCH (09:58)
[2016-08-24] MEDS: LISINOPRIL 10 MG TAB PO SCH (09:58)
[2016-08-24] MEDS: ATORVASTATIN 20 MG TAB PO SCH (09:58)
[2016-08-24] MEDS: VITAMIN D 1,000 INTERNATIONAL UNITS TABLET PO SCH (12:33)
[2016-08-24] MEDS: MAGNESIUM CHLORIDE 64 MG TABCR (SLO MAG) PO SCH (12:34)
[2016-08-24 14:00] VITALS: BP 125/58
--- NOTE | 2016-08-24 14:49 | IPNPDOC ---
Subjective Date Seen The patient was seen on 08/24/16. Subjective Chief Complaint/HPI The patient is a 81-year-old female admitted with a reason for visit of Cellulitis Of Left Lower Extremity. Constitutional: Denies: Chills, Fever, Night Sweats Cardiovascular: Denies: Chest Pain, Lt Headedness, Orthopnea, Palpitations, Paroxysmal Noc. Dyspnea Gastrointestinal: Denies: Abdominal Pain, Constipation, Diarrhea, Nausea, Vomiting Objective Physical Examination General Exam: Positive: Alert, No Acute Distress Eye Exam: Positive: Conjunctiva & lids normal, EOMI, PERRLA, Negative: Sclera icteric ENT Exam: Positive: Atraumatic, Mucous membr. moist/pink, Pharynx Normal Neck Exam: Positive: Supple, Negative: JVD, thyromegaly Chest Exam: Positive: Clear to auscultation, Normal air movement Heart Exam: Positive: Normal S1, Normal S2, Rate Normal, Regular Rhythm, Negative: Murmurs, Rubs Abdomen Exam: Positive: Normal bowel sounds, Soft, Negative: Hepatospenomegaly, Tenderness Extremity Exam: Positive: Swelling (left), Tenderness (left) Skin Exam: Positive: Other skin issue (both feet with extremely dry skin with peeling and caluses and fungal infection in the interdigital spaces. ) Assessment /Plan Problems (1) Diarrhea Status: Resolved Problem Text: * didn't sent stool for cdiff because diarrhea resolved (2) Cellulitis of left lower extremity Status: Acute Response to Treatment: Improving Problem Text: * will continue with vancomycin and zosyn * continue to monitor CRP and ESR * CRP is trending down * no dvt (3) Hyponatremia Status: Chronic Response to Treatment: Stable Problem Text: * possibly related to HCTZ . it was held (4) Hypertension Status: Chronic Problem Text: * wide fluctuations in bp changed the dosage and timing of the medications (5) Hyperlipidemia Status: Chronic (6) Onychomycosis Status: Chronic Problem Text: of both feet follows with podiatry in [place] will continue ketoconazole cream started on terbinafine. Plan/VTE VTE Prophylaxis Ordered?: Yes VS, I&O, 24H, Fishbone Vital Signs/I&O Vital Signs Date Time Temp Pulse Resp B/P Pulse Ox O2 Delivery O2 Flow Rate FiO2 08/24/16 09:58 120/55 08/24/16 06:00 98.0 79 16 97 Room Air I&O- Last 24 Hours up to 6 AM 08/24/16 06:00 Intake Total 3470 ml Output Total 3200 ml Balance 270 ml Laboratory Data 24H LABS Laboratory Tests 2 08/24/16 05:52: Blood Urea Nitrogen 8, Creatinine 0.50L, Sodium Level 136, Potassium Level 3.6, Chloride Level 100, Carbon Dioxide Level 28, Calcium Level 8.5L, Aspartate Amino Transf (AST/SGOT) 16, Alanine Aminotransferase (ALT/SGPT) 35, Alkaline Phosphatase 75, Total Bilirubin 0.3, Total Protein 5.9L, Albumin 2.2L, Albumin/ Globulin Ratio 0.59L, Anion Gap 8, Glomerular Filtration Rate > 60.0 CBC/BMP Laboratory Tests 08/24/16 05:52 Calcium Level 8.5 L, Aspartate Amino Transf (AST/SGOT) 16, Alanine Aminotransferase (ALT/SGPT) 35, Alkaline Phosphatase 75, Total Bilirubin 0.3, Total Protein 5.9 L, Albumin 2.2 L, Red Blood Count 3.24 L, Mean Corpuscular Volume 92.8, Mean Corpuscular Hemoglobin 31.6, Mean Corpuscular Hemoglobin Concent 34.0, Red Cell Distribution Width 12.4 Microbiology Microbiology 08/14/16 Blood Culture - Final, Complete NO GROWTH AFTER 5 DAYS 08/14/16 Blood Culture - Final, Complete NO GROWTH AFTER 5 DAYS PARTH TRAYLOR DO Aug 24, 2016 14:49
[2016-08-24] MEDS: LATANOPROST 0.005% OPHTH SOLN 2.5 ML OU SCH (21:53)
[2016-08-24] MEDS: amLODIPine 5 MG TAB PO SCH (21:53)
[2016-08-24 22:00] VITALS: BP 132/64
[2016-08-25] MEDS: PIPERACILLIN/TAZOBACTAM SOD 3.375 GM in D5W MINI-BAG PLUS 50 ML IV SCH ×2 (00:33→06:28)
[2016-08-25] MEDS: VANCOMYCIN HCL 1,000 MG, VIAL MATE ADAPTER 1 EACH in D5W 250 ML IV SCH (05:14)
[2016-08-25] MEDS: SODIUM CHLORIDE 0.9% INJ 10 ML SYR IV SCH ×2 (05:14→17:29)
[2016-08-25 05:45] LABS: MEAN CORPUSCULAR HEMOGLOBIN 31.1 pg (27.0-33.0); MEAN CORPUSCULAR VOLUME 94.4 fl (80.0-96.0); RED CELL DISTRIBUTION WIDTH 12.6 % (11.5-14.5); WHITE BLOOD COUNT 11.2 K/mm3 (4.0-10.0)
[2016-08-25 06:00] VITALS: BP 115/56
[2016-08-25 06:05] LABS: ALBUMIN 2.3 GM/DL (3.2-5.2); ALBUMIN/GLOBULIN RATIO 0.74 (1.00-1.93); ALKALINE PHOSPHATASE 73 U/L (45-117); ALT/SGPT 31 U/L (12-78); ANION GAP 7 MEQ/L (8-16); AST/SGOT 18 U/L (15-37); BILIRUBIN,TOTAL 0.3 MG/DL (0.2-1.0); BLOOD UREA NITROGEN 11 MG/DL (7-18); CALCIUM LEVEL 8.6 MG/DL (8.8-10.2); CARBON DIOXIDE LEVEL 28 MEQ/L (21-32); CHLORIDE LEVEL 100 MEQ/L (98-107); CREATININE FOR GFR 0.57 MG/DL (0.55-1.02); GLOMERULAR FILTRATION RATE > 60.0 (>32); GLUCOSE, FASTING 89 MG/DL (83-110); POTASSIUM SERUM 4.2 MEQ/L (3.5-5.1); SODIUM LEVEL 135 MEQ/L (136-145); TOTAL PROTEIN 5.4 GM/DL (6.4-8.2)
[2016-08-25] MEDS: LISINOPRIL 10 MG TAB PO SCH (09:00)
[2016-08-25] MEDS: COSOPT OCUMETER PLUS 10ML (DORZOLAMIDE/TIMOLOL) OU SCH ×2 (09:56→20:27)
[2016-08-25] MEDS: ATORVASTATIN 20 MG TAB PO SCH (09:56)
[2016-08-25] MEDS: KETOCONAZOLE 2% CREAM TOP SCH (09:56)
[2016-08-25] MEDS: ENOXAPARIN 40 MG/0.4 ML SYRINGE (J1650) SC SCH (09:56)
[2016-08-25] MEDS: TERBINAFINE 250 MG TABLET PO SCH (09:56)
--- NOTE | 2016-08-25 11:53 | IPNPDOC ---
Subjective Date Seen The patient was seen on 08/25/16. Subjective Chief Complaint/HPI The patient is a 81-year-old female admitted with a reason for visit of Cellulitis Of Left Lower Extremity. Events since last encounter pt seen and examined, her leg appears better today, continues to improve Constitutional: Denies: Chills, Fever, Night Sweats Objective Physical Examination General Exam: Positive: Alert, No Acute Distress Eye Exam: Positive: Conjunctiva & lids normal, EOMI, PERRLA, Negative: Sclera icteric ENT Exam: Positive: Atraumatic, Mucous membr. moist/pink, Pharynx Normal Neck Exam: Positive: Supple, Negative: JVD, thyromegaly Chest Exam: Positive: Clear to auscultation, Normal air movement Heart Exam: Positive: Normal S1, Normal S2, Rate Normal, Regular Rhythm, Negative: Murmurs, Rubs Abdomen Exam: Positive: Normal bowel sounds, Soft, Negative: Hepatospenomegaly, Tenderness Extremity Exam: Positive: Swelling (left), Tenderness (left) Skin Exam: Positive: Other skin issue (both feet with extremely dry skin with peeling and caluses and fungal infection in the interdigital spaces. ) Assessment /Plan Problems (1) Cellulitis of left lower extremity Status: Acute Response to Treatment: Improving Problem Text: * will d/c IV antibiotics and start pt on Bactrim today * plan for discharge in am * continue to monitor CRP and ESR * CRP is trending down * no dvt (2) Diarrhea Status: Resolved Problem Text: * didn't sent stool for cdiff because diarrhea resolved (3) Hyponatremia Status: Chronic Response to Treatment: Stable Problem Text: * possibly related to HCTZ . it was held (4) Hypertension Status: Chronic Problem Text: * wide fluctuations in bp changed the dosage and timing of the medications (5) Hyperlipidemia Status: Chronic (6) Onychomycosis Status: Chronic Problem Text: of both feet follows with podiatry in [place] will continue ketoconazole cream started on terbinafine. Plan/VTE VTE Prophylaxis Ordered?: Yes VS, I&O, 24H, Fishbone Vital Signs/I&O Vital Signs Date Time Temp Pulse Resp B/P Pulse Ox O2 Delivery O2 Flow Rate FiO2 08/25/16 09:00 128/56 08/25/16 06:00 97.0 64 17 97 Room Air I&O- Last 24 Hours up to 6 AM 08/25/16 06:00 Intake Total 1575 ml Output Total 2750 ml Balance -1175 ml Laboratory Data 24H LABS Laboratory Tests 2 08/25/16 05:13: Blood Urea Nitrogen 11, Creatinine 0.57, Sodium Level 135L, Potassium Level 4.2 , Chloride Level 100, Carbon Dioxide Level 28, Calcium Level 8.6L, Aspartate Amino Transf (AST/SGOT) 18, Alanine Aminotransferase (ALT/SGPT) 31, Alkaline Phosphatase 73, Total Bilirubin 0.3, Total Protein 5.4L, Albumin 2.3L, Albumin/ Globulin Ratio 0.74L, Anion Gap 7L, C-Reactive Protein, Quantitative 1.40H, Erythrocyte Sedimentation Rate 63H, Glomerular Filtration Rate > 60.0 CBC/BMP Laboratory Tests 08/25/16 05:13 Calcium Level 8.6 L, Aspartate Amino Transf (AST/SGOT) 18, Alanine Aminotransferase (ALT/SGPT) 31, Alkaline Phosphatase 73, Total Bilirubin 0.3, Total Protein 5.4 L, Albumin 2.3 L, Red Blood Count 3.14 L, Mean Corpuscular Volume 94.4, Mean Corpuscular Hemoglobin 31.1, Mean Corpuscular Hemoglobin Concent 33.0, Red Cell Distribution Width 12.6 PARTH TRAYLOR DO Aug 25, 2016 11:53
[2016-08-25] MEDS: MAGNESIUM CHLORIDE 64 MG TABCR (SLO MAG) PO SCH (12:37)
[2016-08-25] MEDS: VITAMIN D 1,000 INTERNATIONAL UNITS TABLET PO SCH (12:37)
[2016-08-25] MEDS: BACTRIM 160MG/800MG DS TAB PO SCH ×2 (12:37→20:27)
[2016-08-25 14:00] VITALS: BP 150/68
[2016-08-25 14:45] VITALS: BP 120/54
[2016-08-25] MEDS: LATANOPROST 0.005% OPHTH SOLN 2.5 ML OU SCH (20:27)
[2016-08-25] MEDS: amLODIPine 5 MG TAB PO SCH (20:27)
[2016-08-25 22:00] VITALS: BP 111/58
[2016-08-26] MEDS: SODIUM CHLORIDE 0.9% INJ 10 ML SYR IV SCH (05:08)
[2016-08-26 06:00] VITALS: BP 120/58
[2016-08-26 06:13] LABS: MEAN CORPUSCULAR HEMOGLOBIN 31.4 pg (27.0-33.0); MEAN CORPUSCULAR VOLUME 95.1 fl (80.0-96.0); RED CELL DISTRIBUTION WIDTH 12.7 % (11.5-14.5); WHITE BLOOD COUNT 11.6 K/mm3 (4.0-10.0)
[2016-08-26 06:38] LABS: ALBUMIN 2.3 GM/DL (3.2-5.2); ALBUMIN/GLOBULIN RATIO 0.62 (1.00-1.93); ALKALINE PHOSPHATASE 73 U/L (45-117); ALT/SGPT 27 U/L (12-78); ANION GAP 7 MEQ/L (8-16); AST/SGOT 13 U/L (15-37); BILIRUBIN,TOTAL 0.3 MG/DL (0.2-1.0); BLOOD UREA NITROGEN 13 MG/DL (7-18); CALCIUM LEVEL 8.9 MG/DL (8.8-10.2); CARBON DIOXIDE LEVEL 27 MEQ/L (21-32); CHLORIDE LEVEL 100 MEQ/L (98-107); CREATININE FOR GFR 0.74 MG/DL (0.55-1.02); GLOMERULAR FILTRATION RATE > 60.0 (>32); GLUCOSE, FASTING 96 MG/DL (83-110); POTASSIUM SERUM 4.1 MEQ/L (3.5-5.1); SODIUM LEVEL 134 MEQ/L (136-145)
[2016-08-26] MEDS: ATORVASTATIN 20 MG TAB PO SCH (08:32)
[2016-08-26] MEDS: ENOXAPARIN 40 MG/0.4 ML SYRINGE (J1650) SC SCH (08:32)
[2016-08-26] MEDS: COSOPT OCUMETER PLUS 10ML (DORZOLAMIDE/TIMOLOL) OU SCH (08:32)
[2016-08-26] MEDS: TERBINAFINE 250 MG TABLET PO SCH (08:33)
[2016-08-26 08:34] VITALS: BP 110/59
[2016-08-26] MEDS: LISINOPRIL 10 MG TAB PO SCH (08:34)
[2016-08-26] MEDS: BACTRIM 160MG/800MG DS TAB PO SCH (08:34)
[2016-08-26] MEDS: KETOCONAZOLE 2% CREAM TOP SCH (08:36)
[2016-08-26] MEDS: MAGNESIUM CHLORIDE 64 MG TABCR (SLO MAG) PO SCH (12:58)
[2016-08-26] MEDS: VITAMIN D 1,000 INTERNATIONAL UNITS TABLET PO SCH (12:58)
[2016-08-26] MEDS ORDERED: LISI10TA4 PO (13:43)
[2016-08-26] MEDS ORDERED: SMZ-800T PO (13:43)
[2016-08-26] MEDS ORDERED: LAMI250T3 PO (13:43)
--- NOTE | 2016-08-26 15:41 | DSES ---
DATE OF ADMISSION: 08/14/2016 DATE OF DISCHARGE: 08/26/2016 REASON FOR ADMISSION: Cellulitis of the left lower extremity. PRIMARY CARE PROVIDER: Dr. Jasper Johnson FINAL DIAGNOSES: 1. Cellulitis of the left lower extremity. 2. Hyponatremia. 3. Hypertension. 4. Hyperlipidemia. 5. Onychomycosis. HISTORY OF PRESENT ILLNESS: The patient is an 81-year-old female who presented to the emergency room complaining of increased pain and swelling of the left lower extremity over the past 24-48 hours. She has been complaining of chills but no fever. She was admitted under the hospitalist service for lower extremity cellulitis. HOSPITAL COURSE: The patient was initially started on vancomycin. She was on it for about four days with little improvement and Zosyn was then added. The patient started to have lower extremity relief of pain and swelling as well as redness. Her sedimentation rate started coming down as well as her C-reactive protein (CRP). Blood cultures were negative times two. The patient continued another week on Zosyn and then she was switched to Bactrim once her symptoms started to improve. The patient was also started on Lamisil for a fungal infection of her foot. Her liver enzymes were monitored closely while she was here. Once the patient was switched to oral antibiotics and her symptoms started to improve, she was discharged home. DISCHARGE INSTRUCTIONS: She is to followup with her primary care provider, Dr. Jasper Johnson. She is to have followup of liver function tests (LFTs) in two weeks. She is also to followup with Dr. Elizalde for fungal infection. DIET: Regular. ACTIVITIES: As tolerated. DISCHARGE MEDICATIONS: Include: - Bactrim DS by mouth twice a day for several more days - Lamisil 250 mg by mouth daily - lisinopril 10 mg by mouth daily - amlodipine 5 mg by mouth daily - atorvastatin 40 mg by mouth daily - calcium 600 mg by mouth daily - fish oil one capsule by mouth twice a day - ketoconazole cream topically - magnesium chloride 64 mg by mouth daily - vitamin D 1000 units by mouth daily DISCHARGE CONDITION: Stable.
== END 2016-08-26 15:33 | disposition home health service (06) | DRG 603 ==
LOC: M ED 11:31 → M ED INP 13:23 → M MSPAV 14:55
PROVIDERS: ADMIT Internal Medicine; ATTEND Internal Medicine
PROC: 05HB33Z Insertion of Infusion Device into Right Basilic Vein, Percutaneous Approach (ICD-10-PCS; principal; 2016-08-20)
DX: L03.116 Cellulitis of left lower limb (principal); E87.1 Hypo-osmolality and hyponatremia; I10 Essential (primary) hypertension; E78.5 Hyperlipidemia, unspecified; B35.1 Tinea unguium; F17.210 Nicotine dependence, cigarettes, uncomplicated; R26.81 Unsteadiness on feet; E55.9 Vitamin D deficiency, unspecified; E83.42 Hypomagnesemia; H40.9 Unspecified glaucoma; Z90.49 Acquired absence of other specified parts of digestive tract; Z85.820 Personal history of malignant melanoma of skin; Z79.899 Other long term (current) drug therapy; Z88.5 Allergy status to narcotic agent; Z88.1 Allergy status to other antibiotic agents; R19.7 Diarrhea, unspecified

== ENCOUNTER → 2016-10-07 | Outpatient (REF) | payer MEDICARE ==
[~2016-10-07] MED LIST: AMLO5TAB2 PO; ATOR40TA PO; BIMA01SOL OU; CALC600T21 PO; DORZ2OPD OU; DORZ2SOL5 OU; FISH100049 PO; KETO2CR TOP; LAMI250T3 PO; LATA5OPD OU; LISI10TA4 PO; LISI20TA PO; MAGN64TASA PO; SMZ-800T PO; TRIA0.1L TOP; VITA100037 PO
[2016-10-07 11:35] LABS: MEAN CORPUSCULAR HEMOGLOBIN 31.3 pg (27.0-33.0); MEAN CORPUSCULAR HGB CONC 32.9 g/dl (32.0-36.5); MEAN CORPUSCULAR VOLUME 95.3 fl (80.0-96.0); RED CELL DISTRIBUTION WIDTH 13.4 % (11.5-14.5); WHITE BLOOD COUNT 8.9 K/mm3 (4.0-10.0)
[2016-10-07 11:51] LABS: ALBUMIN 3.4 GM/DL (3.2-5.2); ALBUMIN/GLOBULIN RATIO 0.87 (1.00-1.93); ALKALINE PHOSPHATASE 99 U/L (45-117); ALT/SGPT 16 U/L (12-78); ANION GAP 6 MEQ/L (8-16); AST/SGOT 17 U/L (15-37); BILIRUBIN,TOTAL 0.6 MG/DL (0.2-1.0); BLOOD UREA NITROGEN 11 MG/DL (7-18); CARBON DIOXIDE LEVEL 30 MEQ/L (21-32); CHLORIDE LEVEL 97 MEQ/L (98-107); CHOLESTEROL LEVEL 157 MG/DL (<200); CREATININE FOR GFR 0.56 MG/DL (0.55-1.02); GLOMERULAR FILTRATION RATE > 60.0 (>32); GLUCOSE, FASTING 88 MG/DL (83-110); POTASSIUM SERUM 4.8 MEQ/L (3.5-5.1); SODIUM LEVEL 133 MEQ/L (136-145); TOTAL PROTEIN 7.3 GM/DL (6.4-8.2); TRIGLYCERIDES LEVEL 91 MG/DL (<150)
== END ==
LOC: M SFHCPLAZ 10:02
PROVIDERS: ATTEND Internal Medicine
DX: C04.9 Malignant neoplasm of floor of mouth, unspecified (principal); I10 Essential (primary) hypertension; E78.00 Pure hypercholesterolemia, unspecified

== ENCOUNTER → 2017-02-10 | Outpatient (CLI) | payer MEDICARE ==
[~2017-02-10] MED LIST changes: -ATOR40TA PO; +ATOR40TA75 PO; -CALC600T21 PO; +CALC600T60 PO; +LAMI1TAB6 PO; -LAMI250T3 PO; -SMZ-800T PO; +SULF1TAB23 PO; -VITA100037 PO; +VITA100067 PO
[2017-02-10 13:09] LABS: MEAN CORPUSCULAR HEMOGLOBIN 31.9 pg (27.0-33.0); MEAN CORPUSCULAR HGB CONC 34.7 g/dl (32.0-36.5); MEAN CORPUSCULAR VOLUME 91.9 fl (80.0-96.0); RED CELL DISTRIBUTION WIDTH 13.1 % (11.5-14.5); WHITE BLOOD COUNT 5.7 K/mm3 (4.0-10.0)
[2017-02-10 13:31] LABS: ALBUMIN 4.1 GM/DL (3.2-5.2); ALBUMIN/GLOBULIN RATIO 1.21 (1.00-1.93); ALKALINE PHOSPHATASE 88 U/L (45-117); ALT/SGPT 21 U/L (12-78); ANION GAP 9 MEQ/L (8-16); AST/SGOT 17 U/L (15-37); BILIRUBIN,TOTAL 0.6 MG/DL (0.2-1.0); BLOOD UREA NITROGEN 14 MG/DL (7-18); CALCIUM LEVEL 10.1 MG/DL (8.8-10.2); CARBON DIOXIDE LEVEL 28 MEQ/L (21-32); CHLORIDE LEVEL 96 MEQ/L (98-107); GLOMERULAR FILTRATION RATE > 60.0 (>32); GLUCOSE, FASTING 92 MG/DL (83-110); POTASSIUM SERUM 4.6 MEQ/L (3.5-5.1); SODIUM LEVEL 133 MEQ/L (136-145); TOTAL PROTEIN 7.5 GM/DL (6.4-8.2)
== END ==
LOC: M SMT 08:58
PROVIDERS: ATTEND Internal Medicine
DX: C04.9 Malignant neoplasm of floor of mouth, unspecified (principal); I10 Essential (primary) hypertension; R94.6 Abnormal results of thyroid function studies

== ENCOUNTER → 2017-05-23 | Outpatient (CLI) | payer MEDICARE ==
[2017-05-23 18:25] LABS: ANION GAP 4 MEQ/L (8-16); BLOOD UREA NITROGEN 14 MG/DL (7-18); CALCIUM LEVEL 10.1 MG/DL (8.8-10.2); CARBON DIOXIDE LEVEL 33 MEQ/L (21-32); CHLORIDE LEVEL 97 MEQ/L (98-107); GLOMERULAR FILTRATION RATE > 60.0 (>32); GLUCOSE, FASTING 93 MG/DL (83-110); MAGNESIUM LEVEL 2.2 MG/DL (1.8-2.4); POTASSIUM SERUM 5.1 MEQ/L (3.5-5.1); SODIUM LEVEL 134 MEQ/L (136-145)
== END ==
LOC: M SMT 13:47
DX: I10 Essential (primary) hypertension (principal)
CPT/HCPCS: 83735

== ENCOUNTER → 2017-12-15 | Outpatient (CLI) | payer MEDICARE ==
[2017-12-15 13:34] LABS: HEMATOCRIT 38.9 % (36.0-47.0); HEMOGLOBIN 13.2 g/dl (12.0-15.5); MEAN CORPUSCULAR HEMOGLOBIN 31.1 pg (27.0-33.0); MEAN CORPUSCULAR HGB CONC 33.9 g/dl (32.0-36.5); MEAN CORPUSCULAR VOLUME 91.7 fl (80.0-96.0); PLATELET COUNT, AUTOMATED 342 10^3/uL (150-450); RED BLOOD COUNT 4.24 10^6/uL (4.00-5.40); WHITE BLOOD COUNT 6.6 10^3/uL (4.0-10.0)
[2017-12-15 13:57] LABS: ALBUMIN 3.6 GM/DL (3.2-5.2); ALKALINE PHOSPHATASE 84 U/L (45-117); ALT/SGPT 19 U/L (12-78); ANION GAP 7 MEQ/L (8-16); AST/SGOT 19 U/L (7-37); BILIRUBIN,TOTAL 0.7 MG/DL (0.2-1.0); BLOOD UREA NITROGEN 16 MG/DL (7-18); CALCIUM LEVEL 10.1 MG/DL (8.8-10.2); CARBON DIOXIDE LEVEL 30 MEQ/L (21-32); CHLORIDE LEVEL 98 MEQ/L (98-107); CHOLESTEROL LEVEL 152 MG/DL (<200); CHOLESTEROL RISK RATIO 1.767 (<5); CREATININE FOR GFR 0.68 MG/DL (0.55-1.30); GLOMERULAR FILTRATION RATE > 60.0 (>32); GLUCOSE, FASTING 86 MG/DL (70-100); HDL CHOLESTEROL 86 MG/DL (>40); MAGNESIUM LEVEL 2.1 MG/DL (1.8-2.4); NON-HDL-C 66 MG/DL; SODIUM LEVEL 135 MEQ/L (136-145); TOTAL PROTEIN 7.2 GM/DL (6.4-8.2); TRIGLYCERIDES LEVEL 80 MG/DL (<150)
== END ==
LOC: M SMT 09:09
DX: E78.00 Pure hypercholesterolemia, unspecified (principal); I10 Essential (primary) hypertension; C04.9 Malignant neoplasm of floor of mouth, unspecified
CPT/HCPCS: 83735

== ENCOUNTER 2018-02-08 15:07 | Inpatient (IN) | payer MEDICARE ==
[2018-02-08] MEDS: NS 500 ML IV (15:30)
[2018-02-08 16:25] LABS: VENOUS BASE EXCESS 2.2 (-2.0-2.0); VENOUS HCO3 26.3 MEQ/L (23.0-27.0); VENOUS O2 SATURATION 97.1 % (60.0-80.0); VENOUS PARTIAL PRESSURE CO2 39.1 mmHg (38.0-50.0); VENOUS PARTIAL PRESSURE O2 86.9 mmHg (30.0-50.0); VENOUS PH 7.445 UNITS (7.330-7.430); VENOUS STANDARD HCO3 26.4 MEQ/L; VENOUS TOTAL CO2 27.5 MEQ/L (24.0-28.0)
[2018-02-08 16:36] LABS: BASO % 0.1 % (0.0-1.0); EOS # 0.1 10^3/uL (0.0-0.50); EOS % 0.4 % (0.0-3.0); HEMATOCRIT 33.8 % (36.0-47.0); HEMOGLOBIN 12.2 g/dl (12.0-15.5); IMMATURE GRANULOCYTE % 0.5 % (0-3.0); LYMPH # 0.8 10^3/uL (1.5-4.5); LYMPH % 6.9 % (24.0-44.0); MEAN CORPUSCULAR HEMOGLOBIN 30.8 pg (27.0-33.0); MEAN CORPUSCULAR HGB CONC 36.1 g/dl (32.0-36.5); MEAN CORPUSCULAR VOLUME 85.4 fl (80.0-96.0); MONO # 0.8 10^3/uL (0.0-0.8); MONO % 6.7 % (0.0-5.0); NEUTROPHILS # 10.3 10^3/uL (1.8-7.7); NEUTROPHILS % 85.4 % (36.0-66.0); PLATELET COUNT, AUTOMATED 394 10^3/uL (150-450); RED BLOOD COUNT 3.96 10^6/uL (4.00-5.40); RED CELL DISTRIBUTION WIDTH 11.9 % (11.5-14.5)
[2018-02-08 16:51] LABS: LACTIC ACID SEPSIS PROTOCOL 1.9 MMOL/L (0.4-2.0)
[2018-02-08 16:59] LABS: ALBUMIN 3.2 GM/DL (3.2-5.2); ALBUMIN/GLOBULIN RATIO 0.82 (1.00-1.93); ALKALINE PHOSPHATASE 77 U/L (45-117); ALT/SGPT 18 U/L (12-78); ANION GAP 10 MEQ/L (8-16); AST/SGOT 20 U/L (7-37); BILIRUBIN,DIRECT 0.2 MG/DL (0.0-0.2); BILIRUBIN,TOTAL 0.5 MG/DL (0.2-1.0); BLOOD UREA NITROGEN 18 MG/DL (7-18); CALCIUM LEVEL 9.5 MG/DL (8.8-10.2); CARBON DIOXIDE LEVEL 26 MEQ/L (21-32); CHLORIDE LEVEL 84 MEQ/L (98-107); CPK CREATINE PHOSPHOKINASE 133 U/L (26-192); CREATININE FOR GFR 0.72 MG/DL (0.55-1.30); GLOMERULAR FILTRATION RATE > 60.0 (>32); GLUCOSE, FASTING 132 MG/DL (70-100); MAGNESIUM LEVEL 1.9 MG/DL (1.8-2.4); MB/CK RELATIVE INDEX 3.38 (< OR =4); POTASSIUM SERUM 3.7 MEQ/L (3.5-5.1); SODIUM LEVEL 120 MEQ/L (136-145); TOTAL PROTEIN 7.1 GM/DL (6.4-8.2); TROPONIN I 0.02 NG/ML (< 0.10)
[2018-02-08 17:23] LABS: FREE T4 1.22 NG/DL (0.76-1.46)
[2018-02-08 17:40] LABS: OSMOLALITY SERUM 266 MOSM/KG (280-301)
[2018-02-08] MEDS ORDERED: ONDANSETRON 4MG/2ML VIAL (J2405) IV (18:15)
[2018-02-08] MEDS ORDERED: ACETAMINOPHEN TAB 650MG DOSE (2X325MG) PO (18:15)
[2018-02-08] MEDS: NS 1,000 ML IV (18:30)
[2018-02-08 18:49] LABS: ANION GAP 7 MEQ/L (8-16); BLOOD UREA NITROGEN 16 MG/DL (7-18); CALCIUM LEVEL 9.6 MG/DL (8.8-10.2); CARBON DIOXIDE LEVEL 29 MEQ/L (21-32); CHLORIDE LEVEL 85 MEQ/L (98-107); CREATININE FOR GFR 0.59 MG/DL (0.55-1.30); GLOMERULAR FILTRATION RATE > 60.0 (>32); GLUCOSE, FASTING 100 MG/DL (70-100); SODIUM LEVEL 121 MEQ/L (136-145)
[2018-02-08 20:27] LABS: OSMOLALITY URINE 111 MOSM/KG (500-800)
[2018-02-08 20:38] LABS: CHLORIDE,RANDOM URINE < 10 MEQ/L; CREATININE,RANDOM URINE < 13.0 MG/DL; POTASSIUM RANDOM URINE 6.9 MEQ/L; SODIUM,RANDOM URINE 12 MEQ/L; TOTAL PROTEIN,RANDOM URINE < 5.0 MG/DL (0.0-12.0)
[2018-02-08 22:43] LABS: ANION GAP 7 MEQ/L (8-16); BLOOD UREA NITROGEN 17 MG/DL (7-18); CALCIUM LEVEL 9.7 MG/DL (8.8-10.2); CARBON DIOXIDE LEVEL 30 MEQ/L (21-32); CHLORIDE LEVEL 85 MEQ/L (98-107); CPK CREATINE PHOSPHOKINASE 123 U/L (26-192); CREATININE FOR GFR 0.62 MG/DL (0.55-1.30); GLOMERULAR FILTRATION RATE > 60.0 (>32); GLUCOSE, FASTING 110 MG/DL (70-100); MB/CK RELATIVE INDEX 3.09 (< OR =4); POTASSIUM SERUM 3.4 MEQ/L (3.5-5.1); SODIUM LEVEL 122 MEQ/L (136-145); TROPONIN I 0.02 NG/ML (< 0.10)
[2018-02-09] MEDS: OMEGA-3 1050MG CAPSULE PO ×3 (01:33→21:00)
[2018-02-09] MEDS: SENOKOT S TAB PO ×3 (01:33→21:25)
[2018-02-09] MEDS: HEPARIN SOD (PORCINE) 5000 UNITS/ML VIAL SC ×3 (01:33→21:25)
[2018-02-09] MEDS: DOXEPIN 10 MG CAP PO ×2 (01:41→21:25)
[2018-02-09 02:27] LABS: ANION GAP 11 MEQ/L (8-16); BLOOD UREA NITROGEN 14 MG/DL (7-18); CALCIUM LEVEL 9.9 MG/DL (8.8-10.2); CARBON DIOXIDE LEVEL 26 MEQ/L (21-32); CHLORIDE LEVEL 87 MEQ/L (98-107); CREATININE FOR GFR 0.54 MG/DL (0.55-1.30); GLOMERULAR FILTRATION RATE > 60.0 (>32); GLUCOSE, FASTING 99 MG/DL (70-100); POTASSIUM SERUM 3.8 MEQ/L (3.5-5.1); SODIUM LEVEL 124 MEQ/L (136-145)
[2018-02-09 05:49] LABS: HEMATOCRIT 32.1 % (36.0-47.0); HEMOGLOBIN 11.5 g/dl (12.0-15.5); MEAN CORPUSCULAR HGB CONC 35.8 g/dl (32.0-36.5); MEAN CORPUSCULAR VOLUME 86.5 fl (80.0-96.0); PLATELET COUNT, AUTOMATED 351 10^3/uL (150-450); RED BLOOD COUNT 3.71 10^6/uL (4.00-5.40); WHITE BLOOD COUNT 11.7 10^3/uL (4.0-10.0)
[2018-02-09 06:26] LABS: ANION GAP 12 MEQ/L (8-16); BLOOD UREA NITROGEN 15 MG/DL (7-18); CALCIUM LEVEL 9.7 MG/DL (8.8-10.2); CARBON DIOXIDE LEVEL 26 MEQ/L (21-32); CHLORIDE LEVEL 88 MEQ/L (98-107); CREATININE FOR GFR 0.82 MG/DL (0.55-1.30); GLOMERULAR FILTRATION RATE > 60.0 (>32); GLUCOSE, FASTING 86 MG/DL (70-100); MAGNESIUM LEVEL 1.9 MG/DL (1.8-2.4); PHOSPHORUS LEVEL 2.5 MG/DL (2.5-4.9); POTASSIUM SERUM 3.7 MEQ/L (3.5-5.1); SODIUM LEVEL 126 MEQ/L (136-145)
[2018-02-09] MEDS: ATORVASTATIN 20 MG TAB PO (10:04)
[2018-02-09] MEDS: amLODIPine 5 MG TAB PO (10:05)
[2018-02-09] MEDS: LISINOPRIL 20 MG TAB PO (10:05)
[2018-02-09 11:22] LABS: URIC ACID 4.7 MG/DL (2.6-6.0)
[2018-02-09] MEDS: VITAMIN D 1,000 INTERNATIONAL UNITS TABLET PO (12:00)
[2018-02-09] MEDS: MAGNESIUM CHLORIDE 64 MG TABCR (SLO MAG) PO (12:00)
[2018-02-09 12:44] LABS: BEDSIDE GLUCOSE 99 MG/DL (83-110)
[2018-02-09 12:57] LABS: ANION GAP 11 MEQ/L (8-16); BLOOD UREA NITROGEN 19 MG/DL (7-18); CALCIUM LEVEL 9.4 MG/DL (8.8-10.2); CARBON DIOXIDE LEVEL 27 MEQ/L (21-32); CHLORIDE LEVEL 88 MEQ/L (98-107); CREATININE FOR GFR 0.98 MG/DL (0.55-1.30); GLOMERULAR FILTRATION RATE 57.7 (>32); GLUCOSE, FASTING 98 MG/DL (70-100); POTASSIUM SERUM 3.9 MEQ/L (3.5-5.1); SODIUM LEVEL 126 MEQ/L (136-145)
[2018-02-09 15:38] LABS: SODIUM,RANDOM URINE 12 MEQ/L
[2018-02-09 15:38] LABS: CREATININE,RANDOM URINE 29.8 MG/DL
[2018-02-09 18:09] LABS: INR 0.86; PROTHROMBIN TIME 11.8 SECONDS (12.1-14.4)
[2018-02-09 18:20] LABS: ANION GAP 11 MEQ/L (8-16); BLOOD UREA NITROGEN 19 MG/DL (7-18); CALCIUM LEVEL 9.7 MG/DL (8.8-10.2); CARBON DIOXIDE LEVEL 26 MEQ/L (21-32); CHLORIDE LEVEL 88 MEQ/L (98-107); CREATININE FOR GFR 0.81 MG/DL (0.55-1.30); GLOMERULAR FILTRATION RATE > 60.0 (>32); GLUCOSE, FASTING 94 MG/DL (70-100); POTASSIUM SERUM 3.9 MEQ/L (3.5-5.1); SODIUM LEVEL 125 MEQ/L (136-145)
[2018-02-09] MEDS: TIMOLOL OU ×2 (21:00→21:24)
[2018-02-09] MEDS: DORZOLAMIDE OU ×2 (21:00→21:24)
[2018-02-09] MEDS: LUMIGAN 0.01% OU (21:24)
[2018-02-10 01:02] LABS: ANION GAP 6 MEQ/L (8-16); BLOOD UREA NITROGEN 22 MG/DL (7-18); CALCIUM LEVEL 9.2 MG/DL (8.8-10.2); CARBON DIOXIDE LEVEL 27 MEQ/L (21-32); CHLORIDE LEVEL 90 MEQ/L (98-107); CREATININE FOR GFR 0.85 MG/DL (0.55-1.30); GLOMERULAR FILTRATION RATE > 60.0 (>32); GLUCOSE, FASTING 90 MG/DL (70-100); POTASSIUM SERUM 3.5 MEQ/L (3.5-5.1); SODIUM LEVEL 123 MEQ/L (136-145)
[2018-02-10 03:17] LABS: ANION GAP 11 MEQ/L (8-16); BLOOD UREA NITROGEN 22 MG/DL (7-18); CALCIUM LEVEL 9.4 MG/DL (8.8-10.2); CARBON DIOXIDE LEVEL 26 MEQ/L (21-32); CHLORIDE LEVEL 90 MEQ/L (98-107); CREATININE FOR GFR 0.77 MG/DL (0.55-1.30); GLOMERULAR FILTRATION RATE > 60.0 (>32); GLUCOSE, FASTING 86 MG/DL (70-100); POTASSIUM SERUM 3.7 MEQ/L (3.5-5.1); SODIUM LEVEL 127 MEQ/L (136-145)
[2018-02-10 06:01] LABS: HEMATOCRIT 34.5 % (36.0-47.0); HEMOGLOBIN 12.2 g/dl (12.0-15.5); MEAN CORPUSCULAR HEMOGLOBIN 30.9 pg (27.0-33.0); MEAN CORPUSCULAR HGB CONC 35.4 g/dl (32.0-36.5); MEAN CORPUSCULAR VOLUME 87.3 fl (80.0-96.0); PLATELET COUNT, AUTOMATED 368 10^3/uL (150-450); RED BLOOD COUNT 3.95 10^6/uL (4.00-5.40); RED CELL DISTRIBUTION WIDTH 11.9 % (11.5-14.5); WHITE BLOOD COUNT 9.4 10^3/uL (4.0-10.0)
[2018-02-10 06:15] LABS: ALBUMIN 3.1 GM/DL (3.2-5.2); ANION GAP 9 MEQ/L (8-16); BLOOD UREA NITROGEN 22 MG/DL (7-18); CALCIUM LEVEL 9.3 MG/DL (8.8-10.2); CARBON DIOXIDE LEVEL 27 MEQ/L (21-32); CHLORIDE LEVEL 91 MEQ/L (98-107); GLOMERULAR FILTRATION RATE > 60.0 (>32); GLUCOSE, FASTING 88 MG/DL (70-100); MAGNESIUM LEVEL 1.8 MG/DL (1.8-2.4); PHOSPHORUS LEVEL 3.3 MG/DL (2.5-4.9); POTASSIUM SERUM 3.6 MEQ/L (3.5-5.1); SODIUM LEVEL 127 MEQ/L (136-145)
[2018-02-10] MEDS: NS 1,000 ML IV (06:49)
[2018-02-10] MEDS: ATORVASTATIN 20 MG TAB PO (09:20)
[2018-02-10] MEDS: SENOKOT S TAB PO ×2 (09:20→22:01)
[2018-02-10] MEDS: LISINOPRIL 20 MG TAB PO (09:21)
[2018-02-10] MEDS: OMEGA-3 1050MG CAPSULE PO ×2 (09:21→22:01)
[2018-02-10] MEDS: TIMOLOL OU ×2 (09:22→22:01)
[2018-02-10] MEDS: amLODIPine 5 MG TAB PO (09:22)
[2018-02-10] MEDS: DORZOLAMIDE OU ×2 (09:22→22:01)
[2018-02-10] MEDS: HEPARIN SOD (PORCINE) 5000 UNITS/ML VIAL SC ×2 (09:22→22:00)
[2018-02-10 12:56] LABS: ANION GAP 8 MEQ/L (8-16); BLOOD UREA NITROGEN 20 MG/DL (7-18); CALCIUM LEVEL 9.7 MG/DL (8.8-10.2); CARBON DIOXIDE LEVEL 28 MEQ/L (21-32); CHLORIDE LEVEL 91 MEQ/L (98-107); CREATININE FOR GFR 0.68 MG/DL (0.55-1.30); GLOMERULAR FILTRATION RATE > 60.0 (>32); GLUCOSE, FASTING 88 MG/DL (70-100); POTASSIUM SERUM 3.7 MEQ/L (3.5-5.1); SODIUM LEVEL 127 MEQ/L (136-145)
[2018-02-10 18:55] LABS: ANION GAP 9 MEQ/L (8-16); BLOOD UREA NITROGEN 18 MG/DL (7-18); CALCIUM LEVEL 9.8 MG/DL (8.8-10.2); CARBON DIOXIDE LEVEL 27 MEQ/L (21-32); CHLORIDE LEVEL 93 MEQ/L (98-107); CREATININE FOR GFR 0.63 MG/DL (0.55-1.30); GLOMERULAR FILTRATION RATE > 60.0 (>32); GLUCOSE, FASTING 107 MG/DL (70-100); POTASSIUM SERUM 3.7 MEQ/L (3.5-5.1); SODIUM LEVEL 129 MEQ/L (136-145)
[2018-02-10] MEDS: DOXEPIN 10 MG CAP PO (22:00)
[2018-02-10] MEDS: LUMIGAN 0.01% OU (22:01)
[2018-02-10] MEDS: VITAMIN D 1,000 INTERNATIONAL UNITS TABLET PO (22:11)
[2018-02-10] MEDS: MAGNESIUM CHLORIDE 64 MG TABCR (SLO MAG) PO (22:12)
[2018-02-11 00:32] LABS: ANION GAP 8 MEQ/L (8-16); BLOOD UREA NITROGEN 17 MG/DL (7-18); CALCIUM LEVEL 8.8 MG/DL (8.8-10.2); CARBON DIOXIDE LEVEL 25 MEQ/L (21-32); CHLORIDE LEVEL 95 MEQ/L (98-107); CREATININE FOR GFR 0.51 MG/DL (0.55-1.30); GLOMERULAR FILTRATION RATE > 60.0 (>32); GLUCOSE, FASTING 92 MG/DL (70-100); POTASSIUM SERUM 3.6 MEQ/L (3.5-5.1); SODIUM LEVEL 128 MEQ/L (136-145)
[2018-02-11] MEDS: NS 1,000 ML IV ×2 (02:45→18:00)
[2018-02-11 05:54] LABS: HEMATOCRIT 32.3 % (36.0-47.0); HEMOGLOBIN 11.2 g/dl (12.0-15.5); MEAN CORPUSCULAR HEMOGLOBIN 30.6 pg (27.0-33.0); MEAN CORPUSCULAR HGB CONC 34.7 g/dl (32.0-36.5); MEAN CORPUSCULAR VOLUME 88.3 fl (80.0-96.0); PLATELET COUNT, AUTOMATED 323 10^3/uL (150-450); RED BLOOD COUNT 3.66 10^6/uL (4.00-5.40); RED CELL DISTRIBUTION WIDTH 12.2 % (11.5-14.5); WHITE BLOOD COUNT 8.4 10^3/uL (4.0-10.0)
[2018-02-11 06:32] LABS: ALBUMIN 2.7 GM/DL (3.2-5.2); ANION GAP 9 MEQ/L (8-16); BLOOD UREA NITROGEN 16 MG/DL (7-18); CALCIUM LEVEL 8.9 MG/DL (8.8-10.2); CARBON DIOXIDE LEVEL 24 MEQ/L (21-32); CHLORIDE LEVEL 98 MEQ/L (98-107); CREATININE FOR GFR 0.54 MG/DL (0.55-1.30); GLOMERULAR FILTRATION RATE > 60.0 (>32); GLUCOSE, FASTING 80 MG/DL (70-100); MAGNESIUM LEVEL 1.7 MG/DL (1.8-2.4); PHOSPHORUS LEVEL 2.4 MG/DL (2.5-4.9); POTASSIUM SERUM 3.5 MEQ/L (3.5-5.1); SODIUM LEVEL 131 MEQ/L (136-145)
[2018-02-11] MEDS: POTASSIUM CHLORIDE 10 MEQ SR TABLET PO (06:48)
[2018-02-11] MEDS: HEPARIN SOD (PORCINE) 5000 UNITS/ML VIAL SC ×2 (07:03→20:20)
[2018-02-11] MEDS: LISINOPRIL 20 MG TAB PO (09:31)
[2018-02-11] MEDS: CALCIUM CARBONATE 500 MG CHEW U/D PO (09:31)
[2018-02-11] MEDS: ATORVASTATIN 20 MG TAB PO (09:31)
[2018-02-11] MEDS: SENOKOT S TAB PO ×2 (09:31→20:20)
[2018-02-11] MEDS: OMEGA-3 1050MG CAPSULE PO (09:31)
[2018-02-11] MEDS: amLODIPine 5 MG TAB PO (09:32)
[2018-02-11] MEDS: DORZOLAMIDE OU ×2 (09:32→20:20)
[2018-02-11] MEDS: TIMOLOL OU ×2 (09:32→20:20)
[2018-02-11] MEDS: MAG SULF 1GM/100ML (MAG RUN) 1 GM in APPROPRIATE DILUENT 1 EA IV (09:32)
[2018-02-11] MEDS: NEUTRA-PHOS 1.25 GM PACKET PO (11:00)
[2018-02-11] MEDS ORDERED: SLF 3 ML SYR IV (12:45)
[2018-02-11] MEDS: THROMBIN SOLN 20,000 UNITS KIT As Ordered (12:46)
[2018-02-11] MEDS: EPINEPHrine 1MG/10ML SYRINGE 1.5IN As Ordered (12:47)
[2018-02-11] MEDS: THROMBIN SOLN 5,000 UNITS VIAL As Ordered (12:47)
[2018-02-11] MEDS: LIDOCAINE VISCOUS 2% SOLN 15ML UDC As Ordered (12:47)
[2018-02-11 13:24] LABS: ANION GAP 7 MEQ/L (8-16); BLOOD UREA NITROGEN 15 MG/DL (7-18); CALCIUM LEVEL 9.4 MG/DL (8.8-10.2); CARBON DIOXIDE LEVEL 28 MEQ/L (21-32); CHLORIDE LEVEL 95 MEQ/L (98-107); CREATININE FOR GFR 0.56 MG/DL (0.55-1.30); GLOMERULAR FILTRATION RATE > 60.0 (>32); GLUCOSE, FASTING 98 MG/DL (70-100); SODIUM LEVEL 130 MEQ/L (136-145)
[2018-02-11] MEDS: CETACAINE SPRAY 5GM As Ordered (13:48)
[2018-02-11] MEDS: LIDOCAINE 1% SDV INJ 30 ML VIAL As Ordered (14:30)
[2018-02-11] MEDS ORDERED: PROPOFOL 200 MG/20 ML VIAL As Ordered (14:42)
[2018-02-11] MEDS ORDERED: LIDOCAINE 2% INJ 100 MG/5 ML SDV (FOR ANES.) As Ordered (14:42)
[2018-02-11] MEDS ORDERED: ONDANSETRON 4MG/2ML VIAL (J2405) As Ordered (14:42)
[2018-02-11] MEDS ORDERED: fentaNYL 100 MCG/2 ML INJECTION (J3010) As Ordered (14:42)
[2018-02-11] MEDS ORDERED: PHENYLEPHRINE INJ 10MG/ML VIAL (J2370) As Ordered (14:42)
[2018-02-11] MEDS ORDERED: NEOSTIGMINE 10 MG/10 ML VIAL (J2710) As Ordered (14:42)
[2018-02-11] MEDS ORDERED: MIDAZOLAM INJ 2 MG/2 ML VIAL (J2250) As Ordered (14:42)
[2018-02-11] MEDS ORDERED: dexameTHASONE 4 MG/ML 1ML VIAL (J1100) As Ordered (14:42)
[2018-02-11] MEDS ORDERED: GLYCOPYRROLATE INJ 0.2 MG/ML 2 ML VIAL As Ordered (14:42)
[2018-02-11] MEDS ORDERED: ROCURONIUM BROMIDE 50 MG/5 ML VIAL As Ordered (15:17)
[2018-02-11] MEDS ORDERED: MORPHINE 10 MG/ML 1ML VIAL (J2270) IV (16:30)
[2018-02-11] MEDS ORDERED: HYDROMORPHONE HCL 0.5 MG/ 0.5 ML SYRINGE (J1170 PER 1) IV (16:30)
[2018-02-11] MEDS ORDERED: NALBUPHINE HCL 10 MG/ML AMP (J2300) IV (16:30)
[2018-02-11] MEDS ORDERED: PROMETHAZINE INJ 25 MG/ML VIAL (J2550) IV (16:30)
[2018-02-11] MEDS: LR 1,000 ML IV (16:30)
[2018-02-11] MEDS ORDERED: MEPERIDINE INJ 25 MG/ML VIAL (J2175) IV (16:30)
[2018-02-11] MEDS ORDERED: KETOROLAC 30 MG/ML VIAL (J1885) IV (16:30)
[2018-02-11] MEDS ORDERED: METOCLOPRAMIDE INJ 10MG/2ML VIAL (J2765) IV (16:30)
[2018-02-11] MEDS ORDERED: fentaNYL 100 MCG/2 ML INJECTION (J3010) IV (16:30)
[2018-02-11] MEDS ORDERED: ONDANSETRON 4MG/2ML VIAL (J2405) IV (16:30)
[2018-02-11] MEDS ORDERED: NORCO, ANEXSIA 5/325MG TABLET (HYDROcodone/ACETAMINOPHEN) PO (16:30)
[2018-02-11] MEDS ORDERED: PERCOCET 5MG/325MG TAB PO (16:30)
[2018-02-11] MEDS ORDERED: diphenhydrAMINE INJ 50MG/ML VIAL (J1200) IV (16:30)
[2018-02-11] MEDS: VITAMIN D 1,000 INTERNATIONAL UNITS TABLET PO (16:40)
[2018-02-11] MEDS: MAGNESIUM CHLORIDE 64 MG TABCR (SLO MAG) PO (16:40)
[2018-02-11] MEDS: SLF 3 ML SYR IV ×2 (16:41→20:21)
[2018-02-11 18:20] LABS: ANION GAP 9 MEQ/L (8-16); BLOOD UREA NITROGEN 12 MG/DL (7-18); CALCIUM LEVEL 9.3 MG/DL (8.8-10.2); CARBON DIOXIDE LEVEL 26 MEQ/L (21-32); CHLORIDE LEVEL 98 MEQ/L (98-107); CREATININE FOR GFR 0.56 MG/DL (0.55-1.30); GLOMERULAR FILTRATION RATE > 60.0 (>32); GLUCOSE, FASTING 112 MG/DL (70-100); SODIUM LEVEL 133 MEQ/L (136-145)
[2018-02-11] MEDS: OMEGA-3 1000MG CAPSULE PO (20:20)
[2018-02-11] MEDS: DOXEPIN 10 MG CAP PO (20:20)
[2018-02-11] MEDS: LUMIGAN 0.01% OU (20:21)
[2018-02-12 00:21] LABS: ANION GAP 8 MEQ/L (8-16); BLOOD UREA NITROGEN 11 MG/DL (7-18); CALCIUM LEVEL 8.5 MG/DL (8.8-10.2); CARBON DIOXIDE LEVEL 25 MEQ/L (21-32); CHLORIDE LEVEL 99 MEQ/L (98-107); CREATININE FOR GFR 0.49 MG/DL (0.55-1.30); GLOMERULAR FILTRATION RATE > 60.0 (>32); GLUCOSE, FASTING 131 MG/DL (70-100); SODIUM LEVEL 132 MEQ/L (136-145)
[2018-02-12 05:49] LABS: HEMATOCRIT 31.6 % (36.0-47.0); HEMOGLOBIN 10.7 g/dl (12.0-15.5); MEAN CORPUSCULAR HEMOGLOBIN 30.3 pg (27.0-33.0); MEAN CORPUSCULAR HGB CONC 33.9 g/dl (32.0-36.5); MEAN CORPUSCULAR VOLUME 89.5 fl (80.0-96.0); PLATELET COUNT, AUTOMATED 326 10^3/uL (150-450); RED BLOOD COUNT 3.53 10^6/uL (4.00-5.40); RED CELL DISTRIBUTION WIDTH 12.5 % (11.5-14.5); WHITE BLOOD COUNT 10.9 10^3/uL (4.0-10.0)
[2018-02-12] MEDS: SLF 3 ML SYR IV ×3 (06:00→21:24)
[2018-02-12 06:05] LABS: ALBUMIN 2.6 GM/DL (3.2-5.2); ANION GAP 8 MEQ/L (8-16); BLOOD UREA NITROGEN 12 MG/DL (7-18); CALCIUM LEVEL 8.4 MG/DL (8.8-10.2); CARBON DIOXIDE LEVEL 23 MEQ/L (21-32); CHLORIDE LEVEL 103 MEQ/L (98-107); CREATININE FOR GFR 0.43 MG/DL (0.55-1.30); GLOMERULAR FILTRATION RATE > 60.0 (>32); GLUCOSE, FASTING 100 MG/DL (70-100); MAGNESIUM LEVEL 1.7 MG/DL (1.8-2.4); PHOSPHORUS LEVEL 2.3 MG/DL (2.5-4.9); SODIUM LEVEL 134 MEQ/L (136-145)
[2018-02-12] MEDS: DORZOLAMIDE OU ×2 (09:19→21:24)
[2018-02-12] MEDS: ATORVASTATIN 20 MG TAB PO (09:19)
[2018-02-12] MEDS: NEUTRA-PHOS 1.25 GM PACKET PO (09:19)
[2018-02-12] MEDS: TIMOLOL OU ×2 (09:19→21:24)
[2018-02-12] MEDS: HEPARIN SOD (PORCINE) 5000 UNITS/ML VIAL SC ×2 (09:20→21:24)
[2018-02-12] MEDS: OMEGA-3 1000MG CAPSULE PO ×2 (09:20→21:00)
[2018-02-12] MEDS: LISINOPRIL 20 MG TAB PO (09:21)
[2018-02-12] MEDS: MAGNESIUM OXIDE 400 MG TAB (MAG-OX) PO (09:22)
[2018-02-12] MEDS: amLODIPine 5 MG TAB PO (09:22)
[2018-02-12] MEDS: SENOKOT S TAB PO ×3 (09:23→21:41)
[2018-02-12] MEDS: VITAMIN D 1,000 INTERNATIONAL UNITS TABLET PO (12:21)
[2018-02-12] MEDS: MAGNESIUM CHLORIDE 64 MG TABCR (SLO MAG) PO (12:21)
[2018-02-12] MEDS ORDERED: E-Z-PAQUE 96% w/w SUSP 176GM BTL As Ordered (13:57)
[2018-02-12] MEDS ORDERED: E-Z-GAS II EFFERVESCENT PACKET (SODIUM BICARB./CITRIC ACID/SIMETHICONE) As Ordered (13:57)
[2018-02-12] MEDS ORDERED: E-Z-HD 98% w/w 340GM SUSP BTL As Ordered (13:57)
[2018-02-12 19:05] LABS: ANION GAP 8 MEQ/L (8-16); BLOOD UREA NITROGEN 10 MG/DL (7-18); CALCIUM LEVEL 9.2 MG/DL (8.8-10.2); CARBON DIOXIDE LEVEL 26 MEQ/L (21-32); CHLORIDE LEVEL 97 MEQ/L (98-107); CREATININE FOR GFR 0.62 MG/DL (0.55-1.30); GLOMERULAR FILTRATION RATE > 60.0 (>32); GLUCOSE, FASTING 131 MG/DL (70-100); POTASSIUM SERUM 3.7 MEQ/L (3.5-5.1); SODIUM LEVEL 131 MEQ/L (136-145)
[2018-02-12] MEDS: LUMIGAN 0.01% OU (21:24)
[2018-02-12] MEDS: DOXEPIN 10 MG CAP PO (21:25)
[2018-02-13 00:56] LABS: ANION GAP 8 MEQ/L (8-16); BLOOD UREA NITROGEN 11 MG/DL (7-18); CALCIUM LEVEL 8.6 MG/DL (8.8-10.2); CARBON DIOXIDE LEVEL 23 MEQ/L (21-32); CHLORIDE LEVEL 101 MEQ/L (98-107); CREATININE FOR GFR 0.51 MG/DL (0.55-1.30); GLOMERULAR FILTRATION RATE > 60.0 (>32); GLUCOSE, FASTING 86 MG/DL (70-100); SODIUM LEVEL 132 MEQ/L (136-145)
[2018-02-13] MEDS: SLF 3 ML SYR IV ×2 (05:09→13:27)
[2018-02-13 05:53] LABS: HEMATOCRIT 31.7 % (36.0-47.0); HEMOGLOBIN 10.7 g/dl (12.0-15.5); MEAN CORPUSCULAR HEMOGLOBIN 30.7 pg (27.0-33.0); MEAN CORPUSCULAR HGB CONC 33.8 g/dl (32.0-36.5); MEAN CORPUSCULAR VOLUME 91.1 fl (80.0-96.0); PLATELET COUNT, AUTOMATED 323 10^3/uL (150-450); RED BLOOD COUNT 3.48 10^6/uL (4.00-5.40); RED CELL DISTRIBUTION WIDTH 12.8 % (11.5-14.5); WHITE BLOOD COUNT 8.8 10^3/uL (4.0-10.0)
[2018-02-13 06:11] LABS: ALBUMIN 2.7 GM/DL (3.2-5.2); ANION GAP 7 MEQ/L (8-16); BLOOD UREA NITROGEN 12 MG/DL (7-18); CALCIUM LEVEL 8.8 MG/DL (8.8-10.2); CARBON DIOXIDE LEVEL 24 MEQ/L (21-32); CHLORIDE LEVEL 103 MEQ/L (98-107); CREATININE FOR GFR 0.52 MG/DL (0.55-1.30); GLOMERULAR FILTRATION RATE > 60.0 (>32); GLUCOSE, FASTING 75 MG/DL (70-100); MAGNESIUM LEVEL 1.6 MG/DL (1.8-2.4); PHOSPHORUS LEVEL 1.8 MG/DL (2.5-4.9); POTASSIUM SERUM 4.1 MEQ/L (3.5-5.1); SODIUM LEVEL 134 MEQ/L (136-145)
[2018-02-13] MEDS: LISINOPRIL 20 MG TAB PO (08:26)
[2018-02-13] MEDS: TIMOLOL OU (08:27)
[2018-02-13] MEDS: ATORVASTATIN 20 MG TAB PO (08:27)
[2018-02-13] MEDS: amLODIPine 5 MG TAB PO (08:27)
[2018-02-13] MEDS: OMEGA-3 1000MG CAPSULE PO (08:27)
[2018-02-13] MEDS: DORZOLAMIDE OU (08:27)
[2018-02-13] MEDS: HEPARIN SOD (PORCINE) 5000 UNITS/ML VIAL SC (08:27)
[2018-02-13] MEDS: MAG SULF 1GM/100ML (MAG RUN) 1 GM in APPROPRIATE DILUENT 1 EA IV (11:23)
[2018-02-13] MEDS: VITAMIN D 1,000 INTERNATIONAL UNITS TABLET PO (12:33)
[2018-02-13] MEDS: MAGNESIUM CHLORIDE 64 MG TABCR (SLO MAG) PO (12:34)
[2018-02-13] MEDS: SODIUM PHOSPHATE INJ 20 MMOL in D5W 250 ML IV (12:34)
== END 2018-02-13 17:00 | disposition home or self-care (01) | DRG 629 ==
LOC: M PCU 02-09 00:58 → M ED 15:07 → M ED INP 18:14
PROVIDERS: Hospitalist
PROC: 0BBJ8ZX Excision of Left Lower Lung Lobe, Via Natural or Artificial Opening Endoscopic, Diagnostic (ICD-10-PCS; principal; 2018-02-11 13:00)
PROC: 07974ZX Drainage of Thorax Lymphatic, Percutaneous Endoscopic Approach, Diagnostic (ICD-10-PCS; 2018-02-11 13:00)
DX: E87.1 Hypo-osmolality and hyponatremia (principal); C34.32 Malignant neoplasm of lower lobe, left bronchus or lung; I10 Essential (primary) hypertension; E78.5 Hyperlipidemia, unspecified; E83.42 Hypomagnesemia; F17.210 Nicotine dependence, cigarettes, uncomplicated; H40.9 Unspecified glaucoma; I67.1 Cerebral aneurysm, nonruptured; R91.8 Other nonspecific abnormal finding of lung field; E83.39 Other disorders of phosphorus metabolism; J43.9 Emphysema, unspecified; T50.2X5A Adverse effect of carbonic-anhydrase inhibitors, benzothiadiazides and other diuretics, initial encounter; Z88.1 Allergy status to other antibiotic agents; Z88.5 Allergy status to narcotic agent; Z88.8 Allergy status to other drugs, medicaments and biological substances; Z90.49 Acquired absence of other specified parts of digestive tract; Z98.41 Cataract extraction status, right eye; Z98.42 Cataract extraction status, left eye; Z85.820 Personal history of malignant melanoma of skin; Z79.899 Other long term (current) drug therapy; Z92.3 Personal history of irradiation

== ENCOUNTER → 2018-02-16 | Outpatient (CLI) | payer MEDICARE ==
[2018-02-16 17:51] LABS: ANION GAP 9 MEQ/L (8-16); BLOOD UREA NITROGEN 21 MG/DL (7-18); CARBON DIOXIDE LEVEL 27 MEQ/L (21-32); CHLORIDE LEVEL 93 MEQ/L (98-107); CREATININE FOR GFR 0.69 MG/DL (0.55-1.30); GLOMERULAR FILTRATION RATE > 60.0 (>32); GLUCOSE, FASTING 94 MG/DL (70-100); POTASSIUM SERUM 5.4 MEQ/L (3.5-5.1); SODIUM LEVEL 129 MEQ/L (136-145)
== END ==
LOC: M SMT 13:43
DX: E87.1 Hypo-osmolality and hyponatremia (principal)
CPT/HCPCS: 80048

== ENCOUNTER → 2018-02-23 | Outpatient (REF) | payer MEDICARE ==
[2018-02-23 16:39] LABS: HEMATOCRIT 37.9 % (36.0-47.0); HEMOGLOBIN 12.8 g/dl (12.0-15.5); MEAN CORPUSCULAR HEMOGLOBIN 30.5 pg (27.0-33.0); MEAN CORPUSCULAR HGB CONC 33.8 g/dl (32.0-36.5); MEAN CORPUSCULAR VOLUME 90.2 fl (80.0-96.0); PLATELET COUNT, AUTOMATED 426 10^3/uL (150-450); RED CELL DISTRIBUTION WIDTH 12.4 % (11.5-14.5); WHITE BLOOD COUNT 11.9 10^3/uL (4.0-10.0)
[2018-02-23 17:52] LABS: ANION GAP 8 MEQ/L (8-16); BLOOD UREA NITROGEN 15 MG/DL (7-18); CALCIUM LEVEL 9.9 MG/DL (8.8-10.2); CARBON DIOXIDE LEVEL 29 MEQ/L (21-32); CHLORIDE LEVEL 91 MEQ/L (98-107); CREATININE FOR GFR 0.64 MG/DL (0.55-1.30); GLOMERULAR FILTRATION RATE > 60.0 (>32); GLUCOSE, FASTING 95 MG/DL (70-100); MAGNESIUM LEVEL 2.1 MG/DL (1.8-2.4); POTASSIUM SERUM 4.5 MEQ/L (3.5-5.1); SODIUM LEVEL 128 MEQ/L (136-145)
== END ==
LOC: M SFHCPLAZ 14:09
DX: C34.32 Malignant neoplasm of lower lobe, left bronchus or lung (principal); E87.1 Hypo-osmolality and hyponatremia
CPT/HCPCS: 83735

== ENCOUNTER → 2018-03-06 | Outpatient (REF) | payer MEDICARE ==
[2018-03-06 16:23] LABS: ANION GAP 7 MEQ/L (8-16); BLOOD UREA NITROGEN 18 MG/DL (7-18); CALCIUM LEVEL 9.4 MG/DL (8.8-10.2); CARBON DIOXIDE LEVEL 29 MEQ/L (21-32); CHLORIDE LEVEL 95 MEQ/L (98-107); CREATININE FOR GFR 0.67 MG/DL (0.55-1.30); GLOMERULAR FILTRATION RATE > 60.0 (>32); GLUCOSE, FASTING 99 MG/DL (70-100); POTASSIUM SERUM 4.8 MEQ/L (3.5-5.1); SODIUM LEVEL 131 MEQ/L (136-145)
== END ==
LOC: M SFHCPLAZ 14:05
DX: E87.1 Hypo-osmolality and hyponatremia (principal)
CPT/HCPCS: 80048

== ENCOUNTER → 2018-03-10 | Outpatient (CLI) | payer MEDICARE | LOC: M PLARAD 11:26 | DX: C14.8 Malignant neoplasm of overlapping sites of lip, oral cavity and pharynx (principal); C34.32 Malignant neoplasm of lower lobe, left bronchus or lung | CPT/HCPCS: 78815 ==

== ENCOUNTER → 2018-03-26 | Outpatient (CLI) | payer MEDICARE | LOC: M ONCR 13:09 | DX: C34.32 Malignant neoplasm of lower lobe, left bronchus or lung (principal) | CPT/HCPCS: G0463 ==

== ENCOUNTER → 2018-03-30 | Outpatient (REF) | payer MEDICARE ==
[2018-03-30 18:15] LABS: ANION GAP 8 MEQ/L (8-16); BLOOD UREA NITROGEN 19 MG/DL (7-18); CALCIUM LEVEL 10.3 MG/DL (8.8-10.2); CARBON DIOXIDE LEVEL 29 MEQ/L (21-32); CHLORIDE LEVEL 93 MEQ/L (98-107); CREATININE FOR GFR 0.67 MG/DL (0.55-1.30); GLOMERULAR FILTRATION RATE > 60.0 (>32); GLUCOSE, FASTING 89 MG/DL (70-100); MAGNESIUM LEVEL 2.1 MG/DL (1.8-2.4); POTASSIUM SERUM 4.9 MEQ/L (3.5-5.1); SODIUM LEVEL 130 MEQ/L (136-145)
== END ==
LOC: M SFHCPLAZ 16:00
DX: E87.1 Hypo-osmolality and hyponatremia (principal); I10 Essential (primary) hypertension; Z23 Encounter for immunization
CPT/HCPCS: 83735

== ENCOUNTER → 2018-03-31 | Outpatient (REF) | payer MEDICARE | LOC: M LAB REF 13:43 | DX: C34.32 Malignant neoplasm of lower lobe, left bronchus or lung (principal) | CPT/HCPCS: 88300 ==

== ENCOUNTER → 2018-07-10 | Outpatient (REF) | payer MEDICARE ==
[~2018-07-10] MED LIST changes: +ALEN70TA57 PO; -AMLO5TAB2 PO; +AMLO5TAB6 PO; +ANOR1AER INH; +DOXE10CA PO; +FURO20TA2 PO; +INDA125TA PO; -LAMI1TAB6 PO; +LAMI250T3 PO; +LISI-538 PO; +META0.52 PO; +MOME0.1C3 TOP; +PLAV1TAB2 PO; -SULF1TAB23 PO; +SULF1TAB93 PO; +VENTAER INH; +VITA200015 PO
[2018-07-10 18:19] LABS: HEMATOCRIT 36.2 % (36.0-47.0); HEMOGLOBIN 11.7 g/dl (12.0-15.5); MEAN CORPUSCULAR HEMOGLOBIN 28.7 pg (27.0-33.0); MEAN CORPUSCULAR HGB CONC 32.3 g/dl (32.0-36.5); MEAN CORPUSCULAR VOLUME 88.9 fl (80.0-96.0); PLATELET COUNT, AUTOMATED 518 10^3/uL (150-450); RED BLOOD COUNT 4.07 10^6/uL (4.00-5.40); WHITE BLOOD COUNT 12.1 10^3/uL (4.0-10.0)
[2018-07-10 18:50] LABS: ALBUMIN 3.3 GM/DL (3.2-5.2); ALT/SGPT 23 U/L (12-78); BILIRUBIN,TOTAL 0.4 MG/DL (0.2-1.0); BLOOD UREA NITROGEN 17 MG/DL (7-18); CALCIUM LEVEL 10.1 MG/DL (8.8-10.2); CARBON DIOXIDE LEVEL 30 MEQ/L (21-32); CHLORIDE LEVEL 92 MEQ/L (98-107); CREATININE FOR GFR 0.81 MG/DL (0.55-1.30); GLOMERULAR FILTRATION RATE > 60.0 (>32); GLUCOSE, FASTING 100 MG/DL (70-100); MAGNESIUM LEVEL 2.1 MG/DL (1.8-2.4); POTASSIUM SERUM 4.7 MEQ/L (3.5-5.1); SODIUM LEVEL 130 MEQ/L (136-145)
[2018-07-10 18:52] LABS: VITAMIN B12 LEVEL 1136 PG/ML (247-911)
--- NOTE | 2018-07-27 17:06 | MEDONCTEEN ---
Date/Time of Encounter Date of Encounter: Jul 27, 2018 Time of Encounter: 05:02 Telephone Encounter Returned phone call to the patient ] no answer Voice mail left to call back tonight or in the am of Friday and to leave the best times to call back and an alternative number if available , i.e. cell phone # Marilee Franco MD Jul 27, 2018 17:06
== END ==
LOC: M SFHCPLAZ 14:14
PROVIDERS: ATTEND Internal Medicine
DX: I10 Essential (primary) hypertension (principal); E04.1 Nontoxic single thyroid nodule; R94.6 Abnormal results of thyroid function studies; G62.9 Polyneuropathy, unspecified
CPT/HCPCS: 36415; 80053; 82607; 83735; 84443; 85027; G0463

== ENCOUNTER → 2018-07-31 | Outpatient (CLI) | payer MEDICARE ==
[~2018-07-31] MED LIST changes: -ALEN70TA57 PO; +ALEN70TA74 PO; +LATA0.0013 OU; -LATA5OPD OU; +LIDOCAINE 2% MDV 20 ML VIAL As Ordered ONE; +MIDAZOLAM INJ 2 MG/2 ML VIAL (J2250) As Ordered ONE; +TOLV15TAB PO; -TRIA0.1L TOP; +TRIA2LOT TOP; +ceFAZolin 1GM INJ (J0690 PER 500MG) As Ordered ONE; +fentaNYL 100 MCG/2 ML INJECTION (J3010) As Ordered ONE
--- NOTE | 2018-07-31 12:51 | REP ---
Bilateral carotid sonography: History: History of TIA. Findings: Antegrade flow was observed in both vertebral arteries. Right carotid: The right common carotid artery shows mild diffuse intimal thickening and minimal plaquing. There is moderate mixed plaquing in the bulb and proximal ICA on two-dimensional scanning. Some shadowing plaquing is observed limiting visualization. Color flow and spectral Doppler interrogation demonstrate elevated systolic velocity and mildly elevated diastolic velocity in the ICA. Velocity chart right carotid: PSV EDV Right CCA 59.0 cm/s Right ICA 189.0 48.0 Right ECA 92.0 Right ICA/CCA ratio elevated 3.18. Impression: 50-79% category narrowing in the right ICA by Doppler velocity criteria. Probably near the upper end of this range. Left carotid: The left common carotid artery shows mild mixed plaquing. There is moderate mixed plaquing in the bulb and proximal ICA on the left side. Shadowing plaquing is observed. Slightly elevated systolic ICA velocity is seen. Velocity chart left carotid: PSV EDV Left CCA 72.0 cm/s Left ICA 139.0 31.0 Left ECA 92.0 Left ICA/CCA ratio 1.94. Impression: 50-79% category narrowing in the left ICA by Doppler velocity criteria, probably near the lower end of this range. Electronically Signed by Adams Pablo MD 07/31/2018 12:57 P
--- NOTE | 2018-07-31 23:06 | CR.PDOC ---
Subjective General Date/Time Seen The patient was seen on 07/31/18 at 23:02. Subject Chief Complaint/History The patient is a 83-year-old female admitted with a reason for visit of Chemo Treatments. Allergies Coded Allergies: Indapamide (Verified Allergy, Severe, 02/08/18) hyponatremia Codeine (Verified Allergy, Mild, RASH, 08/24/12) Azithromycin (Verified Allergy, Unknown, CAN'T REMEMBER RXN; MD SUGGESTED TO LIST ALLERGY, 08/24/12) Tetracycline (Verified Adverse Reaction, Severe, TONGUE BURNING, 08/14/16) Home Medications Home Medications Scheduled (Dorzolamide HCl/Timolol M 22.3-6.8 mg/ml) 1 Linda Linda, 1 DROP OU BID, (Reported) (Anoro Ellipta 62.5-25 Mcg/INH) 1 Aer Aer, 1 PUFF INH DAILY, (Reported) Albuterol Sulfate (Ventolin Hfa) 108 Mcg/Act Aer, 2 PUFF INH PRN, (Reported) Alendronate Sodium (Alendronate Sodium) 70 Mg Tab, 70 MG PO QWEEK, (Reported) SATURDAYS Atorvastatin Calcium (Atorvastatin Calcium) 40 Mg Tab, 40 MG PO DAILY, (Reported) Bimatoprost (Lumigan) 50 Drop/2.5 Ml Linda, 1 DROP OU QHS, (Reported) Calcium Carbonate (Calcium) 600 Mg Tab, 600 MG PO DAILY, (Reported) TAKES WITH LUNCH Clopidogrel Bisulfate (Plavix) 75 Mg Tab, 75 MG PO DAILY Doxepin HCl (Doxepin HCl) 10 Mg Cap, 20 MG PO QHS, (Reported) Fish Oil (Fish Oil 1000 mg) 1 Cap Cap, 1 CAP PO BID, (Reported) Magnesium Chloride (Mag64) 64 Mg Tabcr, 64 MG PO DAILY, (Reported) TAKES WITH LUNCH Psyllium (Metamucil) 0.52 Gm Cap, 1 CAP PO BID, (Reported) Vitamin D (Vitamin D) 1,000 Unit Cap, 1,000 UNIT PO DAILY, (Reported) TAKES WITH LUNCH Scheduled PRN Triamcinolone Acetonide (Triamcinolone Acetonide) 0.1 % Lot, 1 DOSE TOP BID PRN for ITCHING, (Reported) APPLY TO ARMS, BACK, AND THIGHS Objective Date of Service The patient was seen on 07/31/18. NOTE NAME: BOY LEVY DATE OF : 1935 AGE: 83 SEX: F REPORT #: [id number] ROOM: [facility] TECHNOLOGIST: CHASDANA DOCTOR: Lev Villasenor MD Ordered for Date&Time: 07/31/18 1143 cc: [~ rep ct ivnm] Service Date&Time: 07/31/18 1204 EXAMINATION REQUESTED: Duplex,carotid (complete) REASON FOR PATIENT VISIT: CHEMO TREATMENTS REASON FOR EXAM/COMMENT: Bilateral Carotid duplex--left arm flaccid Bilateral carotid sonography: History: History of TIA. Findings: Antegrade flow was observed in both vertebral arteries. Right carotid: The right common carotid artery shows mild diffuse intimal thickening and minimal plaquing. There is moderate mixed plaquing in the bulb and proximal ICA on two-dimensional scanning. Some shadowing plaquing is observed limiting visualization. Color flow and spectral Doppler interrogation demonstrate elevated systolic velocity and mildly elevated diastolic velocity in the ICA. Velocity chart right carotid: PSV EDV Right CCA 59.0 cm/s Right ICA 189.0 48.0 Right ECA 92.0 Right ICA/CCA ratio elevated 3.18. Impression: 50-79% category narrowing in the right ICA by Doppler velocity criteria. Probably near the upper end of this range. Left carotid: The left common carotid artery shows mild mixed plaquing. There is moderate mixed plaquing in the bulb and proximal ICA on the left side. Shadowing plaquing is observed. Slightly elevated systolic ICA velocity is seen. Velocity chart left carotid: PSV EDV Left CCA 72.0 cm/s Left ICA 139.0 31.0 Left ECA 92.0 Left ICA/CCA ratio 1.94. Impression: 50-79% category narrowing in the left ICA by Doppler velocity criteria, probably near the lower end of this range. Electronically Signed by Adams Pablo MD 07/31/2018 12:57 P Lev Villasenor MD Jul 31, 2018 23:06
--- NOTE | 2018-08-26 08:32 | REPIR ---
DATE OF PROCEDURE: 07/31/2018 PREOPERATIVE DIAGNOSIS: Lung cancer. POSTOPERATIVE DIAGNOSIS: Lung cancer. PROCEDURE: Ultrasound-guided right internal jugular vein cannulation, fluoroscopic guided right internal jugular vein 24 cm tunneled central venous catheter with subcutaneous port placed and using a Bard PowerPort. SURGEON: Dr. Albertina Villasenor. SUPERVISOR FUR DRESSING: Marj Reis and Rose Escobedo ANESTHESIA: Local with 20 mL of 2% lidocaine. FLUORO TIME: 0.2 minutes. CONTRAST: None. COMPLICATIONS: None. DRAINS: None. SPECIMEN: None IMPLANTS: Bard PowerPort tunneled central venous catheter with subcutaneous port placement with a 24 cm length catheter. ANTIBIOTICS: Ancef 2 grams INDICATION: The patient is an 83 old female with lung cancer who requires access for chemotherapy and will undergo placement of a tunneled central venous catheter with subcutaneous port. Risks, benefits and alternative options were discussed with the patient. DESCRIPTION OF PROCEDURE: The patient was taken to the angiography suite, placed supine on the angiography room table and prepped and draped in a standard surgical fashion. The ultrasound was used to evaluate the right internal jugular vein which was widely patent, easily compressible and free of thrombus. Ultrasound was then used guide cannulation. The right internal jugular vein with real-time concurrent visualization of the entry of the needle into the right internal jugular vein with a hard copy image preserved. A tunnel catheter was then tunneled from a pocket created in the right chest and brought out through the right internal jugular vein entry site, placed in the superior vena cava right atrial junction under fluoroscopic guidance. Catheter was attached to the port which was placed in the pocket. Port was accessed and then aspirated and noted to aspirate easily and then flushed with heparinized saline. Incisions were closed using #3-0 Monocryl in inverted interrupted fashion. Steri-Strips and dressings were applied. The patient tolerated the procedure well. All instrument, sponge, needle counts were correct at the end the case. There were no complications. Dr. Villasenor was present for and directed the entire case. The patient was transferred to the holding and subsequent discharged in stable condition. RADIOLOGY SUPERVISION INTERPRETATION: The initial ultrasound showed the right internal jugular vein to be widely patent, easily compressible and free of thrombus. Ultrasound was used to guide cannulation of the right internal jugular vein with real-time concurrent visualization of the entry needle into the right internal jugular vein with a hard copy image preserved. Fluoroscopy was used to dilate the right internal jugular vein, placed the introducer sheath. Catheter was advanced through the introducer sheath and positioned with the tip in the superior vena cava atrial junction. Final fluoroscopic image showed the catheter and port to the good position and good alignment with the tip in the superior vena cava right atrial junction with no pneumothorax or hemothorax noted.
== END | disposition home or self-care (01) ==
LOC: M IRPRO 10:37
PROVIDERS: ATTEND Internal Medicine Hematology & Oncology
DX: C34.90 Malignant neoplasm of unspecified part of unspecified bronchus or lung (principal); I65.23 Occlusion and stenosis of bilateral carotid arteries
CPT/HCPCS: 36561; 76937; 77001; 93880; C1788; C1894; J0690

== ENCOUNTER 2018-08-19 16:34 | Outpatient (CLI) | payer MEDICARE ==
[~2018-08-19] VITALS: Ht 165.1 cm; Wt 52.7 kg
[~2018-08-19 16:34] MED LIST changes: +ALEN70TA57 PO; -ALEN70TA74 PO; -LIDOCAINE 2% MDV 20 ML VIAL As Ordered ONE; -MIDAZOLAM INJ 2 MG/2 ML VIAL (J2250) As Ordered ONE; +SODIUM CHLORIDE 0.9% INJ 10 ML SYR IV SCH; -TOLV15TAB PO; +TRIA0.1L TOP; -TRIA2LOT TOP; -ceFAZolin 1GM INJ (J0690 PER 500MG) As Ordered ONE; -fentaNYL 100 MCG/2 ML INJECTION (J3010) As Ordered ONE
[2018-08-19 17:00] VITALS: BP 136/62
[2018-08-19] MEDS ORDERED: NS 500 ML IV SCH (17:00)
[2018-08-19 17:36] VITALS: BP 142/65
--- NOTE | 2018-08-19 18:14 | REP ---
Clinical: Lung cancer. Technique: PA and lateral. Comparison: 02/11/2018. Findings: Left lower lobe mass again identified and unchanged. Surrounding left lower lobe atelectasis cannot be excluded. No effusion. No pneumothorax. Remainder of lung guajardo demonstrate chronic COPD/emphysematous changes. The cardiac silhouette is normal. [id number] identified with tip in the SVC. Evidence of prior right axillary node dissection. Skeletal structures intact. Impression: Relatively stable left lower lobe mass. Subtle left lower lobe atelectasis cannot be excluded. Electronically Signed by Star Painter MD 08/19/2018 06:06 P
[2018-08-20] MEDS ORDERED: TOLV15TAB PO (11:36)
--- NOTE | 2018-08-21 10:28 | MEDONC ---
UNSCHEDULED MEDICAL ONCOLOGY CLINIC VISIT DATE OF SERVICE: 08/19/2018 DIAGNOSIS: PD-L1 positive non-small cell lung carcinoma. EGFR, ALK, ROS1 mutations negative. CURRENT TREATMENT: Day 1, cycle 1 pembrolizumab 08/07/2018. INTERVAL HISTORY: Linda is seen today for an unscheduled visit. She called earlier today reporting systemic myalgias and a sense of generalized weakness. Her symptoms started approximately 48 hours ago. No other new or specific complaints offered at this time. Currently, Linda denies complaints of headaches, visual disturbance, progressive dyspnea, persistent cough, diminished appetite, nausea or vomiting, diarrhea or constipation, or extremity edema. PHYSICAL EXAMINATION: Weight is 53.1 kg. Temperature 98.3, pulse 92, respirations 24, BP 167/81, O2 sat 96% at rest on room air. GENERAL: Exam reveals a thin, older white female, who is appropriate for her age of 83 years. HEENT: No scleral icterus. Oral pharynx, oral mucous membranes normal. Conjunctivae normal. No thyroid enlargement or nodule. No jugular venous distention. Neck supple. Carotid upstrokes 1+, no bruits. Fundi normal bilaterally. RESPIRATORY: Lungs clear bilaterally to auscultation and percussion. No rales, rhonchi, or wheezing. CARDIOVASCULAR: PMI 5th left intercostal space, midline. S1, S2 normal. No S3, S4 or murmurs. Regular rhythm. Femoral, dorsalis pedis pulses 2+ bilaterally. LYMPHATICS: No palpable lymphadenopathy. ABDOMEN: Soft, nontender. Bowel sounds normal. No tenderness, guarding, or rebound. No palpable masses or hepatosplenomegaly. MUSCULOSKELETAL: No focal skeletal tenderness to percussion. No joint swelling, warmth, tenderness, or erythema. SKIN: No rash, ecchymosis, or petechiae. Normal turgor. EXTREMITIES: No edema, clubbing, cyanosis. No thigh or calf tenderness. Normal range of motion. LABORATORY DATA: CBC: White blood cell count 17.0, ANC 13.9, RBC 3.55, H/H 10.1/31.8, platelets 520. Chemistries reveal a low sodium of 122, chloride of 88, nonfasting glucose of 152 and an albumin of 3.4. All other findings on the chemistries were within normal parameters. TSH was within normal range at 3.060. Free T4 also normal at 1.36. IMPRESSION: Linda is a very pleasant, 83-year-old female with a documented history of T2N0M0, non-small cell lung carcinoma (nonsurgical candidate) that presents today for an unscheduled visit complaining of generalized weakness and systemic myalgias. She is status post day 1, cycle 1 of treatment with pembrolizumab on 08/07/2018. Her current symptoms have been ongoing for approximately 48 hours. Of concern is her elevated white blood cell count. We will obtain a chest x-ray PA and lateral and also a urine for UA, culture and sensitivity. In regards to the patient's hyponatremia, she will be hydrated with a bolus of 500 mL of normal saline today. She has also been advised to decrease her fluid intake at home to no more than four cups in 24 hours. We will follow Linda very carefully. She will be scheduled to return tomorrow, 08/20/2018, for repeat blood work and followup with Dr. Franco. Linda and her [id number] were also advised should her symptoms progress that she should report to the nearest emergency room Electronically Signed by Ivone Mc NP 08/21/2018 01:50 P DD: Ivone Mc NP 08/20/2018 06:48 A DT: [email or web address] 08/21/2018 10:18 A CC:
== END 2018-08-19 18:20 | disposition home or self-care (01) ==
LOC: M INFU 16:34
PROVIDERS: ATTEND Nurse Practitioner Family
DX: E87.1 Hypo-osmolality and hyponatremia (principal); D72.829 Elevated white blood cell count, unspecified

== ENCOUNTER → 2018-08-26 | Outpatient (CLI) | payer MEDICARE ==
[~2018-08-26] MED LIST changes: -ALEN70TA57 PO; +ALEN70TA74 PO; +PROHANCE 279.3MG/ML 15ML VIAL (A9576) As Ordered ONE; -SODIUM CHLORIDE 0.9% INJ 10 ML SYR IV SCH; +TOLV15TAB PO; -TRIA0.1L TOP; +TRIA2LOT TOP
--- NOTE | 2018-08-26 15:14 | REP ---
MR BRAIN WITHOUT AND WITH CONTRAST: HISTORY: Metastatic carcinoma. CONTRAST: ProHance 10.4 mL COMPARISON: 01/30/2018 An area of increased signal intensity on T2-weighted images is present in the left thalamus. This represents an old lacunar infarction. Areas of increased signal intensity on T2-weighted images are present in the periventricular and subcortical white matter, desiree and right cerebellum. This represents small vessel ischemic disease. There is no intraparenchymal hemorrhage, acute infarct, mass or midline shift. There is no abnormal enhancement. The ventricular system and cortical sulci as well as subarachnoid space in the posterior fossa are dilated consistent with mild volume loss. There is no extracerebral collection. There is prominence of the left middle cerebral artery trifurcation. This represents a small aneurysm. The aneurysm measures approximately 6 mm in size and appears unchanged compared to the previous study. The visualized sinuses are clear. IMPRESSION: 1. 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 2. Small vessel ischemic disease. 3. Mild volume loss. 4. 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 Electronically Signed by Konrad Segura MD 08/26/2018 03:25 P
== END ==
LOC: M RAD 12:30
PROVIDERS: ATTEND Internal Medicine Hematology & Oncology
DX: Z86.73 Personal history of transient ischemic attack (TIA), and cerebral infarction without residual deficits (principal); I67.82 Cerebral ischemia; I67.1 Cerebral aneurysm, nonruptured; G31.9 Degenerative disease of nervous system, unspecified
CPT/HCPCS: 70553; A9576

== ENCOUNTER → 2018-12-23 | Outpatient (REF) ==
[~2018-12-23] MED LIST changes: +OMEG10002 PO; -PROHANCE 279.3MG/ML 15ML VIAL (A9576) As Ordered ONE; +VITAD1000T PO
== END ==
PROVIDERS: ATTEND Family Medicine
DX: Z11.1 Encounter for screening for respiratory tuberculosis (principal)

== ENCOUNTER → 2019-01-05 | Outpatient (REF) | payer MEDICARE ==
[~2019-01-05] MED LIST changes: +ACET650S3 PO; +CHOL100029 PO; +COLA100C5 PO; +DICY10SO PO; +DOXE10CO2 PO; +FISH120016 PO; +IRON65TA2 PO; -LISI20TA PO; +LISI20TA19 PO; +MILKSUS3 PO; -VITAD1000T PO
[2019-01-05 16:18] LABS: HEMATOCRIT 30.7 % (36.0-47.0); HEMOGLOBIN 9.2 g/dl (12.0-15.5); MEAN CORPUSCULAR HEMOGLOBIN 25.4 pg (27.0-33.0); MEAN CORPUSCULAR VOLUME 84.8 fl (80.0-96.0); PLATELET COUNT, AUTOMATED 467 10^3/uL (150-450); RED BLOOD COUNT 3.62 10^6/uL (4.00-5.40)
[2019-01-05 16:26] LABS: ALBUMIN 3.2 GM/DL (3.2-5.2); ALT/SGPT 36 U/L (12-78); BILIRUBIN,TOTAL 0.5 MG/DL (0.2-1.0); BLOOD UREA NITROGEN 15 MG/DL (7-18); CALCIUM LEVEL 9.2 MG/DL (8.8-10.2); CARBON DIOXIDE LEVEL 31 MEQ/L (21-32); CHLORIDE LEVEL 99 MEQ/L (98-107); CREATININE FOR GFR 0.68 MG/DL (0.55-1.30); GLOMERULAR FILTRATION RATE > 60.0 (>32); GLUCOSE, FASTING 102 MG/DL (70-100); POTASSIUM SERUM 4.4 MEQ/L (3.5-5.1); SODIUM LEVEL 135 MEQ/L (136-145); TOTAL PROTEIN 6.7 GM/DL (6.4-8.2)
== END ==
LOC: M SFHCPLAZ 14:02
PROVIDERS: ATTEND Internal Medicine
DX: C34.32 Malignant neoplasm of lower lobe, left bronchus or lung (principal); E87.1 Hypo-osmolality and hyponatremia

== ENCOUNTER → 2019-02-02 | Outpatient (CLI) | payer MEDICARE ==
[~2019-02-02] MED LIST changes: -ACET650S3 PO; -COLA100C5 PO; -DOXE10CO2 PO; -FISH120016 PO; -IRON65TA2 PO; -MILKSUS3 PO
--- NOTE | 2019-02-02 18:33 | REP ---
PET/CT: History: Restaging lung carcinoma left lower lobe. Maintenance chemotherapy. Comparisons: Comparison PET-CT studies are from October 13, 2018 and March 10, 2018. TECHNIQUE: 49 minutes following the intravenous injection of a 8.50 mCi dose of F-18 FDG, three-dimensional PET scintigraphy is acquired from the skull base to the proximal thighs. Triplanar noncontrast CT scanning is acquired through the same anatomic range for attenuation correction, and image registration with scan parameters optimized to minimize radiation exposure to the patient. PET scintigraphy and CT datasets were fused and displayed on a workstation with multiplanar and projection display capability. PET/CT Findings: The mass in the left lower lobe has become larger increasing to 7.7 x 9.7 cm in transverse dimension from 6.1 x 6.6 cm on October 13, 2018 CT images, by my measurements. It appears larger in craniocaudal span as well. It remains quite hypermetabolic, maximum standard uptake value today is 24.7. There is no abnormal hilar or mediastinal hypermetabolic uptake. There is some atelectatic and consolidative change in the left lower lobe below the mass lesion. No other hypermetabolic uptake is seen in the thorax. There is mildly increased uptake in the soft tissues adjacent to the shoulders bilaterally consistent with arthropathy. There is a new finding of a focus of hypermetabolic uptake at the tip of the epiglottis in the midline. Maximum standard uptake value here is 7.42. This was not present previously and is of uncertain significance. Head and neck soft tissues are otherwise unremarkable. In the abdomen and pelvis, there is no abnormal hypermetabolic uptake. Impression: Gradually enlarging left lower lobe mass remains hypermetabolic. There is a new small 1 cm focus of hypermetabolic uptake in the midline at the tip of the epiglottis of uncertain significance. No other abnormal hypermetabolic uptake is seen. Electronically Signed by Adams Pablo MD 02/03/2019 09:07 A
== END ==
LOC: M PLARAD 10:15
PROVIDERS: ATTEND Internal Medicine Hematology & Oncology
DX: C34.32 Malignant neoplasm of lower lobe, left bronchus or lung (principal)
CPT/HCPCS: 78815; A9552

== ENCOUNTER → 2019-03-23 | Outpatient (CLI) | payer MEDICARE ==
[2019-03-23 17:20] LABS: BLOOD UREA NITROGEN 16 MG/DL (7-18); CREATININE FOR GFR 0.64 MG/DL (0.55-1.30); GLOMERULAR FILTRATION RATE > 60.0 (>32)
== END ==
LOC: M LAB 15:35
PROVIDERS: ATTEND Otolaryngology
DX: D38.0 Neoplasm of uncertain behavior of larynx (principal)

== ENCOUNTER → 2019-03-25 | Outpatient (CLI) | payer MEDICARE ==
[~2019-03-25] MED LIST changes: +ISOVUE-370 76% 100ML VIAL (Q9967) As Ordered ONE
--- NOTE | 2019-03-25 09:29 | REP ---
CT soft tissue neck: New 03/25/2019. Indication: Neck mass. Comparison: 01/09/2007. Technique: Axial images of the soft tissues were obtained following 75 ml IV Isovue 370 with coronal and sagittal reconstructions provided. Findings: There is more prominent soft tissue involving the uvula, vallecula and epiglottis including the right greater than left aryepiglottic folds and piriform sinuses. There does not appear to be involvement of the glottis. No subglottic lesion is detected. Bilateral carotid atherosclerotic disease is present. Postoperative sequelae on the left are again noted. Pleural thickening and effusions are present, particularly on the left. Pulmonary emphysematous sequelae are additionally noted. Small right upper lobe pulmonary nodule is stable compared to the most recent chest CT. No significant cervical lymphadenopathy is present. Sclerotic focus within the central C2 vertebral body is present and stable. There is a new lytic area within the anterior aspect of C3. Impression: More prominent soft tissue within the uvula, vallecula and supraglottic regions particularly on the right as described. Direct inspection correlation is recommended. Possible small lytic metastasis of C3. Electronically Signed by Ean Philip DO 03/25/2019 09:20 A
== END ==
LOC: M RAD 08:12
PROVIDERS: ATTEND Otolaryngology
DX: C38.0 Malignant neoplasm of heart (principal)
CPT/HCPCS: 70491; Q9967

== ENCOUNTER → 2019-04-05 | Outpatient (REF) | payer MEDICARE ==
[~2019-04-05] MED LIST changes: +ACET650S3 PO; +COLA100C5 PO; +DOXE10CO2 PO; +FISH120016 PO; +IRON65TA2 PO; -ISOVUE-370 76% 100ML VIAL (Q9967) As Ordered ONE; +MILKSUS3 PO
[2019-04-05 12:47] LABS: HEMATOCRIT 33.3 % (36.0-47.0); HEMOGLOBIN 9.9 g/dl (12.0-15.5); MEAN CORPUSCULAR HEMOGLOBIN 24.3 pg (27.0-33.0); MEAN CORPUSCULAR HGB CONC 29.7 g/dl (32.0-36.5); MEAN CORPUSCULAR VOLUME 81.8 fl (80.0-96.0); PLATELET COUNT, AUTOMATED 454 10^3/uL (150-450); RED BLOOD COUNT 4.07 10^6/uL (4.00-5.40)
[2019-04-05 12:58] LABS: ALBUMIN 3.1 GM/DL (3.2-5.2); ALT/SGPT 18 U/L (12-78); BILIRUBIN,TOTAL 0.4 MG/DL (0.2-1.0); BLOOD UREA NITROGEN 16 MG/DL (7-18); CALCIUM LEVEL 9.8 MG/DL (8.8-10.2); CARBON DIOXIDE LEVEL 30 MEQ/L (21-32); CHLORIDE LEVEL 102 MEQ/L (98-107); CREATININE FOR GFR 0.62 MG/DL (0.55-1.30); GLOMERULAR FILTRATION RATE > 60.0 (>32); GLUCOSE, FASTING 89 MG/DL (70-100); POTASSIUM SERUM 5.1 MEQ/L (3.5-5.1); SODIUM LEVEL 137 MEQ/L (136-145); TOTAL PROTEIN 6.7 GM/DL (6.4-8.2)
== END ==
LOC: M SFHCPLAZ 09:18
PROVIDERS: ATTEND Internal Medicine
DX: I10 Essential (primary) hypertension (principal); C34.32 Malignant neoplasm of lower lobe, left bronchus or lung; R94.6 Abnormal results of thyroid function studies
CPT/HCPCS: 36415; 80053; 83735; 84443; 85027; 93005; G0463

== ENCOUNTER 2019-04-08 11:25 | Day surgery (SDC) | payer MEDICARE ==
[~2019-04-08] VITALS: Ht 162.6 cm; Wt 49.9 kg
[~2019-04-08 11:25] MED LIST changes: +LR 1,000 ML IV ONE; +dexameTHASONE 4 MG/ML 1ML VIAL (J1100) IV ONE
[2019-04-08] MEDS ORDERED: LIDOCAINE W/EPINEPHRINE 1% 20ML VIAL As Ordered ONE (13:50)
[2019-04-08] MEDS ORDERED: METHYLENE BLUE 0.5% (5MG/ML) 10 ML AMP (PROVAYBLUE)(Q9968 PER 1MG) As Ordered ONE (13:50)
[2019-04-08] MEDS ORDERED: OXYMETAZOLINE NASAL SPRAY (AFRIN) As Ordered ONE (13:50)
[2019-04-08] MEDS ORDERED: SUGAMMADEX SODIUM 500 MG/5 ML VIAL (BRIDION) As Ordered ONE (13:52)
[2019-04-08] MEDS ORDERED: LIDOCAINE 2% INJ 100 MG/5 ML SDV (FOR ANES.) As Ordered ONE (13:52)
[2019-04-08] MEDS ORDERED: ROCURONIUM BROMIDE 50 MG/5 ML VIAL As Ordered ONE (13:52)
[2019-04-08] MEDS ORDERED: PROPOFOL 200 MG/20 ML VIAL As Ordered ONE (13:52)
[2019-04-08] MEDS ORDERED: ONDANSETRON 4MG/2ML VIAL (J2405) As Ordered ONE (13:52)
[2019-04-08] MEDS ORDERED: MIDAZOLAM INJ 2 MG/2 ML VIAL (J2250) As Ordered ONE (13:53)
[2019-04-08] MEDS ORDERED: fentaNYL 100 MCG/2 ML INJECTION (J3010) As Ordered ONE (13:53)
[2019-04-08] MEDS ORDERED: dexameTHASONE 4 MG/ML 1ML VIAL (J1100) As Ordered ONE (13:59)
[2019-04-08] MEDS ORDERED: CETACAINE SPRAY 5GM As Ordered ONE (14:13)
[2019-04-08] MEDS ORDERED: ePHEDrine SULFATE 25 MG/5 ML(5MG/ML) SYRINGE As Ordered ONE (14:27)
[2019-04-08] MEDS ORDERED: PHENYLephrine HCL 500 MCG/5 ML (100MCG/ML) SYRINGE (J2370) As Ordered ONE (14:27)
[2019-04-08] MEDS ORDERED: LR 1,000 ML IV SCH ×2 (15:45→16:45)
[2019-04-08] MEDS ORDERED: ONDANSETRON 4MG/2ML VIAL (J2405) IV PRN (15:45)
[2019-04-08] MEDS ORDERED: oxyCODONE 5MG TAB PO PRN (15:45)
[2019-04-08] MEDS ORDERED: ACETAMINOPHEN TAB 650MG DOSE (2X325MG) As Ordered ONE (16:16)
[2019-04-08] MEDS ORDERED: ACETAMINOPHEN TAB 650MG DOSE (2X325MG) PO SCH (16:45)
[2019-04-08 17:10] VITALS: BP 147/68
--- NOTE | 2019-04-15 11:49 | RO ---
DATE OF OPERATION: 04/08/2019 PREOPERATIVE DIAGNOSIS: Hypermetabolic activity on the PET scan of the epiglottis. POSTOPERATIVE DIAGNOSIS: Hypermetabolic activity on the PET scan of the epiglottis. PROCEDURE PERFORMED: Direct suspension laryngoscopy with biopsy of the epiglottis. SURGEON: Everardo Buckley MD STUDIO CONTROL OPERATOR: ANESTHESIA: General. CLINICAL PREAMBLE: This 84-year-old woman has had a PET scan performed for issues relating to her lung pathology and was noted to have hypermetabolic activity over the tip of the epiglottis. Flexible laryngoscopy examination revealed a mass on the laryngeal surface of the epiglottis. Management options including the surgery listed above have been discussed. The patient understood and consented to the procedure. OR NARRATION: The patient was identified in preop holding and brought to the operating room in stable condition. In supine position on the operating room table, the patient received general anesthesia followed by orotracheal intubation without incident. The patient was prepped and draped in the usual fashion for the procedure. The upper dentition was protected. Bimanual palpation of the oral tongue, base of tongue, lateral posterior pharyngeal wall showed no evidence of discreet mass lesion. Using the Dedo-Pilling laryngoscope the mucosa of the oral tongue, base of tongue, lateral posterior pharyngeal wall showed no evidence of mucosal ulcerations or mass lesions. Examination of the supraglottis revealed a mass on the laryngeal surface of the epiglottis. The aryepiglottic fold, false cords and true cords showed no evidence of mucosal lesions. The pyriform sinuses were clear. Postcricoid region was clear as well. The Dedo-Pilling laryngoscope was then suspended to allow visualization of the mass on the epiglottis. Biopsy was performed over the laryngeal surface of the epiglottis. Hemostasis was achieved by placing cottonoid pledgets soaked in Afrin solution. At the end of the procedure sponge and instrument counts were correct. No complications were encountered. Estimated blood loss was less than 5 mL. General anesthesia was reversed and the patient was extubated and brought to the recovery room in stable condition.
== END 2019-04-08 17:30 | disposition home or self-care (01) ==
LOC: M SDC 11:25
PROVIDERS: ATTEND Otolaryngology
DX: C32.0 Malignant neoplasm of glottis (principal); C34.32 Malignant neoplasm of lower lobe, left bronchus or lung; C04.9 Malignant neoplasm of floor of mouth, unspecified; I10 Essential (primary) hypertension; G62.9 Polyneuropathy, unspecified; I25.10 Atherosclerotic heart disease of native coronary artery without angina pectoris; I65.29 Occlusion and stenosis of unspecified carotid artery; E78.00 Pure hypercholesterolemia, unspecified; E04.1 Nontoxic single thyroid nodule; K57.32 Diverticulitis of large intestine without perforation or abscess without bleeding; M12.9 Arthropathy, unspecified; I67.1 Cerebral aneurysm, nonruptured; M81.0 Age-related osteoporosis without current pathological fracture; R94.6 Abnormal results of thyroid function studies; J44.9 Chronic obstructive pulmonary disease, unspecified; F17.210 Nicotine dependence, cigarettes, uncomplicated; Z88.1 Allergy status to other antibiotic agents; Z88.5 Allergy status to narcotic agent; Z88.8 Allergy status to other drugs, medicaments and biological substances; Z79.899 Other long term (current) drug therapy; Z79.01 Long term (current) use of anticoagulants; Z92.3 Personal history of irradiation; Z92.21 Personal history of antineoplastic chemotherapy; Z86.73 Personal history of transient ischemic attack (TIA), and cerebral infarction without residual deficits; Z90.710 Acquired absence of both cervix and uterus; Z78.0 Asymptomatic menopausal state; Z96.1 Presence of intraocular lens; Z98.41 Cataract extraction status, right eye; Z98.42 Cataract extraction status, left eye
CPT/HCPCS: 31535; 88305; J1100; J2250; J2370; J2405; J3010; Q9968

== ENCOUNTER → 2019-05-04 | Outpatient (CLI) | payer MEDICARE ==
[~2019-05-04] MED LIST changes: -LR 1,000 ML IV ONE; -dexameTHASONE 4 MG/ML 1ML VIAL (J1100) IV ONE
--- NOTE | 2019-05-04 15:27 | REP ---
CT CHEST WITHOUT CONTRAST: HISTORY: Restaging lung cancer. Non-small cell lung cancer treated on maintenance palliative Keytruda therapy. Recent diagnosis of squamous cell carcinoma of the epiglottis. Comparison chest CT study February 09, 2018 and January 02, 2007. CT FINDINGS: The previous study showed a large mass in the left lower lobe. The mass persists and may have enlarged. There is complete collapse of the left lower lobe associated with this with obstruction of the left lower lobe bronchus and narrowing of the upper lobe bronchus. The upper lobe remains aerated. There are emphysematous changes in the upper lobes bilaterally as before. There is no evidence of pleural effusion. There is a small pericardial effusion which is a new finding. No adrenal mass lesion is observed. Bilateral renal cortical cysts are noted. There is a precarinal lymph node, which this appears enlarged in the interval since the February 09, 2018 study. It has a short-axis dimension of 13 mm today, 10 mm previously. No other mediastinal adenopathy is appreciated. IMPRESSION: Large mass in the left lower lobe appears to have progressed and is now complicated by left lower lobe lobar collapse due to endobronchial disease blocking left lower lobe bronchus and narrowing of the upper lobe bronchus on the left. There is an enlarging precarinal lymph node in the mediastinum. Electronically Signed by Adams Pablo MD 05/04/2019 05:20 P
== END ==
LOC: M RAD 12:55
PROVIDERS: ATTEND Internal Medicine Hematology & Oncology
DX: C34.90 Malignant neoplasm of unspecified part of unspecified bronchus or lung (principal)

== ENCOUNTER → 2019-05-11 | Outpatient (CLI) | payer MEDICARE ==
--- NOTE | 2019-05-13 19:08 | RADONC ---
RADIATION ONCOLOGY CONSULTATION NOTE DATE: 05/11/2019 CHART NUMBER: [id number] DIAGNOSIS: Epiglottis cancer. STAGE: I, T1N0M0. ECOG PERFORMANCE STATUS: 0. CONSULTATION NOTE: Ms. 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 She is being referred to me for discussion of treatment of her tiny epiglottic lesion. 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 She underwent a resection of her floor of mouth with reconstruction and supraomohyoid neck dissection of the left neck. At that time she did not receive any radiation or chemotherapy postoperatively. She did well for 5 years but in December of 2006 was found to have a lower left neck node. This was biopsied with fine needle aspiration and pathology revealed a squamous cell carcinoma. Full examination of the patient's oral cavity, nasopharynx, larynx and oropharynx revealed no evidence of disease. On January 29, 2007 the patient was seen by me and subsequently underwent radiation for a dose of 7000 cGy to her involved neck and 5000 cGy to the oral cavity, oropharynx and larynx areas as well as noninvolved lymph nodes. The patient subsequently did well until 2018 when she was found to have a left lower lung mass. On 02/13/2018 the patient underwent bronchial brushings which were positive for malignancy consistent with a squamous cell carcinoma. On 01/2018 the patient underwent bronchoscopic biopsies as well and pathology revealed a moderately differentiated squamous cell carcinoma. The tumor was PD-L1 (Keytruda) score of 80% high expression. The patient was seen by Dr. Franco and underwent two treatments with Keytruda earlier this year. Apparently she had GI difficulties and Keytruda was discontinued. A PET/CT scan was done on October 13, 2018 and revealed a 6.1 cm x 6.6 cm mass in the left lower lobe. Subsequent PET/CT scan repeated on 02/02/2019 revealed that the mass had increased in size to 7.7 cm x 9.7 cm. I have personally reviewed these PET scans and the increase in size is quite clear to observation. The PET/CT scan, however done 02/02/2019 did show a very tiny focus of hypermetabolic uptake at the tip of the epiglottis in the midline. The SUV value on that was 7.42. The patient was subsequently referred to Dr. Everardo Buckley and underwent an epiglottic mass biopsy on 04/09/2019. Pathology revealed a keratinizing squamous cell carcinoma which was moderately differentiated. The patient is now being referred to me to discuss her overall treatment options. PAST MEDICAL HISTORY: The patient's past medical history is positive for hypertension, arthritis and glaucoma. She had a bowel resection secondary to perforation in 2003. ALLERGIES: The patient is allergic to TETRACYCLINE and CODEINE. SOCIAL HISTORY: The patient had smoked more than one pack of cigarettes per day for over 60 years. She quit this year. She does not abuse alcohol. FAMILY HISTORY: The patient's family history is negative for lung cancer, head and neck cancer or other malignancies. REVIEW OF SYSTEMS: The patient's review of systems is positive for physical limitations secondary to her old age. She uses a walker all the time. She has some dizziness. She has fallen down in the past and had been unable to get up. She has difficulty chewing and swallowing. She has some anxiety. She reports weight loss but her biggest complaint again would be episodes of fainting. She denies nausea, vomiting, fevers, chills, night sweats, diplopia, chest pain, rectal bleeding, urinary or bowel difficulties, bone pain or neurological problems. She has no trouble with pain upon swallowing. PHYSICAL EXAMINATION: The patient is a well-developed, well-nourished, female in no acute distress. HEENT exam is normocephalic, atraumatic. Extraocular movements are intact. There is no palpable cervical, supraclavicular, infraclavicular, axillary, or inguinal lymphadenopathy present. Lungs are generally clear to auscultation and percussion with decreased breath sounds over the left lower lobe. Heart has a regular rate and rhythm. Abdomen is benign with no hepatosplenomegaly, masses, or tenderness. Skeletal examination reveals no tenderness to pressure or percussion of the bony skeleton. Extremities reveal no clubbing, cyanosis, or edema. Neurologic exam is grossly intact, as is the remainder of the physical examination. ASSESSMENT: I have very lengthy discussion with this patient and personally reviewed the patient's PET scans with her. Clearly the PET scan done on February 02 shows significant growth in her lung mass when compared to the previous PET scan of October 13. I think this is her real problem. She is however asymptomatic with regards to that. At this time the tiny squamous cell carcinoma at the tip of her epiglottis is causing her no problems and I failed to see any need to pursue this further. Indeed no further radiation can be safely delivered. The patient reports that she is still suffering from side effects from her radiation 12 years ago. She received a dose of 7000 cGy and to deliver another 7000 cGy to control this would bring her to 14,000 cGy to her throat and larynx area. This undoubtedly would cause severe morbidity as well as most likely mortality. I would expect osteonecrosis as well as muscle necrosis. And I have no idea what we would be pursuing. Clearly she is non-curable squamous cell carcinoma of the lung which is not being treated at all at this point. The patient is scheduled see Dr. Gleason right after my consultation. I have recommended that she discuss with him systemic options. Clearly, as mentioned before the lung is the issue. At this time, however she is 84 years old and asymptomatic and not curable. It would be totally reasonable to choose to do nothing at this point. I asked her to think about her options when she speaks to Dr. Gleason and she does not need to make a decision at this time. Indeed the present PET scan we are discussing is now 3 months old and therefore there is no song to make a decision before or . She needs to think about the side effects as well as potential benefits and response rates and discuss this with her family and then get back to her medical oncologist. As for radiation clearly there is no role and it would be impossible to deliver it safely. Indeed, I am not sure whether or not she has esophageal cancer or this is simply metastatic cancer from her lung. They are both moderately differentiated carcinomas. Once again to reiterate radiation is not possible to the esophagus nor is it indicated. This may be metastatic in nature and she has an incurable lung cancer we are dealing with. I am referring her back to her medical oncologist for further options and have not set up any followup in our office at this time. cc: MD Alejandro Short MD Frank Rhode, MD
== END ==
LOC: M ONCR 12:58
PROVIDERS: ATTEND Radiology Radiation Oncology
DX: C32.1 Malignant neoplasm of supraglottis (principal)

== ENCOUNTER → 2019-06-14 | Outpatient (REF) | payer MEDICARE ==
[2019-06-14 10:30] LABS: MEAN CORPUSCULAR HEMOGLOBIN 24.9 pg (27.0-33.0); MEAN CORPUSCULAR VOLUME 83.1 fl (80.0-96.0); PLATELET COUNT, AUTOMATED 511 10^3/uL (150-450); RED BLOOD COUNT 3.61 10^6/uL (4.00-5.40); WHITE BLOOD COUNT 9.8 10^3/uL (4.0-10.0)
[2019-06-14 11:11] LABS: ALBUMIN 2.8 GM/DL (3.2-5.2); ALT/SGPT 18 U/L (12-78); BILIRUBIN,TOTAL 0.3 MG/DL (0.2-1.0); BLOOD UREA NITROGEN 14 MG/DL (7-18); CARBON DIOXIDE LEVEL 31 MEQ/L (21-32); CHLORIDE LEVEL 102 MEQ/L (98-107); CREATININE FOR GFR 0.49 MG/DL (0.55-1.30); GLOMERULAR FILTRATION RATE > 60.0 (>32); GLUCOSE, FASTING 73 MG/DL (70-100); POTASSIUM SERUM 4.7 MEQ/L (3.5-5.1); SODIUM LEVEL 137 MEQ/L (136-145); TOTAL PROTEIN 6.2 GM/DL (6.4-8.2)
== END ==
PROVIDERS: ATTEND Internal Medicine
DX: R94.6 Abnormal results of thyroid function studies (principal); G62.9 Polyneuropathy, unspecified; I10 Essential (primary) hypertension

== ENCOUNTER → 2019-08-04 | Outpatient (CLI) | payer MEDICARE ==
[~2019-08-04] MED LIST changes: +CHOL4POW4 PO; +CVS10CAP7 PO; +LIDO2.5C15 TOP; +POTA1TAB14 PO
--- NOTE | 2019-08-04 17:07 | REP ---
T of the chest without IV contrast for lung carcinoma, restaging: Comparison is 05/04/2019. The the patient has a known large left lower lobe lung mass. I suspect the masses in the anterior segment of the left lower lobe but is of a large size and effects all segments of the left lower lobe. There is collapse of the left lower lobe from bronchial occlusion centrally as well as from compression atelectasis from the large mass. There are a few air bubbles along the superior margin of the mass. This could represent aerated bronchi within atelectatic portion of the left upper lobe. No pneumothorax is identified. The mass is quite large but does not appear to have significantly changed size from 05/04/2019. The right lung is clear. There appears to be mediastinal shift to the left compatible with atelectasis in the left lung. There are scattered bulla throughout the lung guajardo bilaterally. On the prior study there was an enlarged precarinal mediastinal node. This node is again identified today and measures 15 mm short axis. It measured 13 mm previously. No other mediastinal adenopathy is identified. There is no axillary adenopathy. There are surgical clips in the right axilla. This is unchanged. The unenhanced thoracic aorta is unremarkable. Cardiac size is mildly enlarged. This is unchanged. There is a pericardial effusion measuring 8 ml in depth anteriorly. This measured 5 mm previously. Upper abdomen. No adrenal mass is identified. The visualized areas of the unenhanced liver, gallbladder, pancreas and spleen are unremarkable. There is a right renal upper pole cyst, unchanged. Impression: There is a large left lower lobe mass. It is not to.. To appreciably increased in size. However, there are now air bubbles along the superior posterior margin of the mass, likely within the aerated bronchi with in an atelectatic portion along. This was not present previously. There is atelectasis of the entire left lower lobe from a combination of bronchial occlusion and compression from the large mass. No pneumothorax is identified. The precarinal mediastinal lymph node has increased slightly in size. Electronically Signed by Bud Cuevas MD 08/04/2019 04:59 P
== END ==
LOC: M RAD 16:02
PROVIDERS: ATTEND Internal Medicine Hematology
DX: C34.90 Malignant neoplasm of unspecified part of unspecified bronchus or lung (principal)

== ENCOUNTER → 2019-08-06 | Outpatient (REF) | payer MEDICARE | PROVIDERS: ATTEND Internal Medicine Pulmonary Disease | DX: R04.2 Hemoptysis (principal) ==

== ENCOUNTER 2019-09-08 13:04 | Emergency (ER) | payer MEDICARE ==
[~2019-09-08] VITALS: Ht 165.1 cm; Wt 46.8 kg
[~2019-09-08 13:04] MED LIST changes: -LOMO2.5T PO; -LOPE-39 PO
[2019-09-08] MEDS ORDERED: ACETAMINOPHEN TAB 650MG DOSE (2X325MG) PO ONE (13:30)
[2019-09-08 14:15] LABS: BASO % 0.3 % (0.0-1.0); EOS % 0.4 % (0.0-3.0); HEMATOCRIT 32.4 % (36.0-47.0); HEMOGLOBIN 9.9 g/dl (12.0-15.5); LYMPH # 0.8 10^3/uL (1.5-5.0); LYMPH % 6.9 % (24.0-44.0); MEAN CORPUSCULAR HEMOGLOBIN 24.9 pg (27.0-33.0); MEAN CORPUSCULAR HGB CONC 30.6 g/dl (32.0-36.5); MEAN CORPUSCULAR VOLUME 81.6 fl (80.0-96.0); MONO % 9.1 % (0.0-5.0); NEUTROPHILS % 82.8 % (36.0-66.0); PLATELET COUNT, AUTOMATED 514 10^3/uL (150-450); RED BLOOD COUNT 3.97 10^6/uL (4.00-5.40); WHITE BLOOD COUNT 10.9 10^3/uL (4.0-10.0)
--- NOTE | 2019-09-08 14:21 | REP ---
REASON: Known left lower lobe mass. Patient now experiencing chest pain. COMPARISON: Multiple, the latest 08/19/2018. The technique utilized in obtaining the radiograph has magnified the cardiac silhouette and accentuated the interstitial markings. The left lower lobe mass seen previously is seen in a markedly limited fashion on this AP portable chest. There is a persistent left retrocardiac opacity partially silhouetting out at the diaphragmatic surface of the left lung status quo. There is cardiomegaly accentuated by technique. There is evidence of interstitial fibrotic change accentuated by technique. The tip of the mediport device is in the superior vena cava. Surgical clips are again seen in the right axillary region. No new abnormal parenchymal opacities are identified. There is no significant change in the osseous structures. IMPRESSION: Findings and limitations as described above. No plain radiographic evidence of acute cardiopulmonary disease or significant change compared to the prior exam. Electronically Signed by Samuel Zarate DO 09/08/2019 02:28 P
[2019-09-08 14:45] LABS: ALBUMIN 2.7 GM/DL (3.2-5.2); ALT/SGPT 29 U/L (12-78); BILIRUBIN,TOTAL 0.5 MG/DL (0.2-1.0); BLOOD UREA NITROGEN 12 MG/DL (7-18); C REACTIVE PROTEIN QUANTITATIV 3.65 MG/DL (0.00-0.30); CARBON DIOXIDE LEVEL 25 MEQ/L (21-32); CHLORIDE LEVEL 97 MEQ/L (98-107); CK-MB VALUE MASS 1.1 NG/ML (<3.6); CPK CREATINE PHOSPHOKINASE 41 U/L (26-192); CREATININE FOR GFR 0.56 MG/DL (0.55-1.30); GLOMERULAR FILTRATION RATE > 60.0 (>32); GLUCOSE, FASTING 122 MG/DL (70-100); MB/CK RELATIVE INDEX 2.68 (< OR =4); NT-PRO BNP 3011 PG/ML (<450); POTASSIUM SERUM 4.5 MEQ/L (3.5-5.1); SODIUM LEVEL 130 MEQ/L (136-145); TOTAL PROTEIN 5.8 GM/DL (6.4-8.2); TROPONIN I < 0.02 NG/ML (< 0.10)
[2019-09-08] MEDS ORDERED: ISOVUE-370 76% 100ML VIAL (Q9967) As Ordered ONE (14:48)
--- NOTE | 2019-09-08 15:16 | ECGEPIP ---
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
--- NOTE | 2019-09-08 15:16 | ECGEPIP ---
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
--- NOTE | 2019-09-08 15:55 | REP ---
HISTORY: Pain in the neck after trauma. There is advanced disc space narrowing at every level. There is endplate sclerosis seen C3-4 and particularly C4-5. Anterior and posterior osteophytic ridging is seen from C3-4 to C6-7 inclusive. There is a retrolisthesis of C3 on C4 of approximately 3 mm. The facet joints are well aligned bilaterally. Hypertrophic degenerative facet and uncovertebral joint changes are present at every level bilaterally. There is a grade 1 superior endplate compression deformity of T1 and even more mildly seen at T2 on this C-spine CT. There is no evidence of an acute cervical spine fracture. There is no abnormal paraspinal soft tissue swelling. The imaged lung guajardo show marked chronic changes and evidence of a left pleural effusion. IMPRESSION: Chronic changes as described above. Electronically Signed by Samuel Zarate DO 09/08/2019 04:02 P
--- NOTE | 2019-09-08 16:00 | REP ---
REASON: Headache after trauma. COMPARISON: 02/08/2018 and MRI of 08/26/2018. The ventricles and sulci are unchanged. The deep white matter is unchanged. There are no acute extra-axial fluid collections. There is no shift of the midline structures. The posterior fossa is unchanged and again seen to be within normal limits. In the left middle cranial fossa there is a 6 mm size soft tissue nodular density consistent with the known left middle cerebral artery aneurysm. It is unchanged from the prior CT. There is no skull fracture. The paranasal sinuses and mastoid air cells are clear. IMPRESSION: 1. No evidence of acute intracranial abnormality. 2. 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 Electronically Signed by Samuel Zarate DO 09/08/2019 04:03 P
--- NOTE | 2019-09-08 16:25 | REP ---
HISTORY: Trauma. COMPARISON: The latest prior 03/28/2020. The patient has a known large left lung mass. CONTRAST: 100 mL Isovue-370. There is excellent visualization of the thoracic aorta without evidence of a dissection. The distal portion of the thoracic aorta is not as well opacified as the more proximal portions of the thoracic aorta. There is excellent visualization of the main pulmonary arteries and excellent visualization of the pulmonary arteries throughout the right lung. No focal filling defects are present that would be considered consistent with pulmonary emboli. There is an abrupt tapering of the pulmonary artery to the left lower lobe secondary to this huge mass which has not changed in size compared to the latest prior. The mass is encasing the left lower lobe pulmonary artery. There is a pericardial effusion which has increased somewhat from the prior exam. There is a newly developed and slight left pleural effusion which could at least in part be obscured by the large left lower lobe mass. The imaged upper abdomen is essentially unchanged from the prior exam. There is adrenal gland thickening and there is a right renal cyst. The imaged osseous structures are unchanged. There is no evidence of an acute fracture or acute destructive osseous lesion. Evaluation of the lung guajardo show no change in the appearance of a large left lower lobe mass. There are scattered asymmetric lung densities, status quo with biapical pleuroparenchymal scarring and heavy upper lobe emphysematous changes, all having a similar appearance compared to multiple priors and show no significant change compared to the latest prior. No new abnormal lung opacities have developed. IMPRESSION: 1. There is a slight left pleural effusion, which has developed since the last exam. 2. There is a pericardial effusion which is increased slightly from the prior exam. 3. No evidence of an acute pulmonary embolus, however, marked pulmonary arterial abnormalities on the left as described above. 4. No evidence of a thoracic aortic abnormality. 5. Chronic changes in the imaged upper abdomen, status quo. 6. Chronic lung field changes as described above, status quo. Electronically Signed by Samuel Zarate DO 09/08/2019 04:34 P
[2019-09-08 16:32] VITALS: BP 137/63
[2019-09-09] MEDS ORDERED: LOMO2.5T PO (11:07)
[2019-09-09] MEDS ORDERED: LOPE-39 PO (11:07)
--- NOTE | 2019-09-10 06:35 | ED PDOC ---
Post-Departure Follow-Up dr deng faxed formal report of cta chest for fu Dilma Pereira MD Sep 10, 2019 06:35
== END 2019-09-08 20:00 | disposition home or self-care (01) ==
LOC: EDBD 13:04 → M ED 13:04
DX: S00.211A Abrasion of right eyelid and periocular area, initial encounter (principal); W01.0XXA Fall on same level from slipping, tripping and stumbling without subsequent striking against object, initial encounter; Y92.009 Unspecified place in unspecified non-institutional (private) residence as the place of occurrence of the external cause; Y93.9 Activity, unspecified; Y99.9 Unspecified external cause status; I45.10 Unspecified right bundle-branch block; I48.91 Unspecified atrial fibrillation; C34.90 Malignant neoplasm of unspecified part of unspecified bronchus or lung; C32.3 Malignant neoplasm of laryngeal cartilage; F17.200 Nicotine dependence, unspecified, uncomplicated; Z79.899 Other long term (current) drug therapy; Z88.1 Allergy status to other antibiotic agents; Z88.6 Allergy status to analgesic agent; Z88.8 Allergy status to other drugs, medicaments and biological substances
CPT/HCPCS: 70450; 71045; 71275; 72125; 80053; 82550; 82553; 83605; 83880; 84443; 84484; 85025; 85379; 86140; 87040; 93005; 93041; 94760; 99285; Q9967; U0002

== ENCOUNTER → 2019-09-08 | Outpatient (REF) | payer MEDICARE ==
[~2019-09-08] MED LIST changes: +LOMO2.5T PO; +LOPE-39 PO
[2019-09-08 14:13] LABS: BASO % 0.3 % (0.0-1.0); EOS % 0.4 % (0.0-3.0); HEMATOCRIT 35.9 % (36.0-47.0); LYMPH % 9.2 % (24.0-44.0); MEAN CORPUSCULAR HEMOGLOBIN 25.2 pg (27.0-33.0); MEAN CORPUSCULAR HGB CONC 30.6 g/dl (32.0-36.5); MEAN CORPUSCULAR VOLUME 82.3 fl (80.0-96.0); MONO # 0.9 10^3/uL (0.0-0.8); MONO % 8.6 % (0.0-5.0); NEUTROPHILS # 8.5 10^3/uL (1.5-8.5); NEUTROPHILS % 81.2 % (36.0-66.0); PLATELET COUNT, AUTOMATED 572 10^3/uL (150-450); RED BLOOD COUNT 4.36 10^6/uL (4.00-5.40); WHITE BLOOD COUNT 10.4 10^3/uL (4.0-10.0)
[2019-09-08 14:45] LABS: ALBUMIN 2.9 GM/DL (3.2-5.2); ALT/SGPT 30 U/L (12-78); BILIRUBIN,TOTAL 0.5 MG/DL (0.2-1.0); BLOOD UREA NITROGEN 12 MG/DL (7-18); CALCIUM LEVEL 9.1 MG/DL (8.8-10.2); CARBON DIOXIDE LEVEL 27 MEQ/L (21-32); CHLORIDE LEVEL 95 MEQ/L (98-107); CREATININE FOR GFR 0.58 MG/DL (0.55-1.30); GLOMERULAR FILTRATION RATE > 60.0 (>32); GLUCOSE, FASTING 99 MG/DL (70-100); POTASSIUM SERUM 4.3 MEQ/L (3.5-5.1); SODIUM LEVEL 128 MEQ/L (136-145); TOTAL PROTEIN 6.3 GM/DL (6.4-8.2)
== END ==
PROVIDERS: ATTEND Internal Medicine Hematology
DX: C34.90 Malignant neoplasm of unspecified part of unspecified bronchus or lung (principal)

== ENCOUNTER → 2019-09-10 | Outpatient (REF) | payer MEDICARE ==
[~2019-09-10] MED LIST changes: +LOMO2.5T PO; +LOPE-39 PO
[2019-09-10 13:01] LABS: CORTISOL BASELINE 22.5 UG/DL (4.3-22.4); FREE T4 1.04 NG/DL (0.76-1.46); THYROID STIMULATING HORMONE 2.85 uIU/ML (0.358-3.740)
== END ==
PROVIDERS: ATTEND Internal Medicine Medical Oncology
DX: C34.90 Malignant neoplasm of unspecified part of unspecified bronchus or lung (principal); I95.9 Hypotension, unspecified; Z79.899 Other long term (current) drug therapy

== ENCOUNTER → 2019-09-20 | Outpatient (REF) | payer MEDICARE | PROVIDERS: ATTEND Internal Medicine | DX: E87.1 Hypo-osmolality and hyponatremia (principal); Z53.9 Procedure and treatment not carried out, unspecified reason ==

== ENCOUNTER 2019-09-26 13:20 | Inpatient (IN) | payer MEDICARE ==
[2019-09-26] VITALS (16 sets, daily range): BP systolic 62–165; BP diastolic 30–84
[~2019-09-26] VITALS: Ht 165.1 cm; Wt 47.9 kg
[2019-09-26] MEDS ORDERED: NS 1,000 ML IV SCH ×2 (13:46→16:30)
[2019-09-26] MEDS ORDERED: PANTOPRAZOLE 40MG VIAL (C9113 PER 1) IV ONE (14:00)
[2019-09-26] MEDS ORDERED: METOPROLOL TART 25 MG TABLET PO ONE (14:00)
[2019-09-26] MEDS ORDERED: ASPIRIN 81 MG CHEW TABLET PO ONE (14:00)
--- NOTE | 2019-09-26 14:31 | REP ---
Clinical: Chest pain. Comparison: 09/08/2019. Findings: The cardiac silhouette is normal. [id number]-Tuga extends into the SVC/right atrium. Left perihilar and lower lobe opacity is again noted along with diffusely increased interstitial markings. No obvious effusion. No pneumothorax. Skeletal structures are intact. Prior right axillary node dissection noted. Impression: 1. Left perihilar and lower lobe opacities similar to prior examination. Electronically Signed by Star Painter MD 09/26/2019 02:22 P
[2019-09-26] MEDS ORDERED: ACET1TAB55 PO (14:36)
[2019-09-26] MEDS ORDERED: DOXE25CA PO (14:36)
[2019-09-26] MEDS ORDERED: CLOP75TA2 PO (14:36)
[2019-09-26] MEDS ORDERED: CHOL4PW PO (14:36)
[2019-09-26] MEDS ORDERED: DORZ2SOL4 OU (14:36)
[2019-09-26 14:56] LABS: BASO % 0.2 % (0.0-1.0); EOS % 0.1 % (0.0-3.0); HEMATOCRIT 32.4 % (36.0-47.0); HEMOGLOBIN 9.9 g/dl (12.0-15.5); LYMPH # 0.4 10^3/uL (1.5-5.0); LYMPH % 3.3 % (24.0-44.0); MEAN CORPUSCULAR HEMOGLOBIN 24.8 pg (27.0-33.0); MEAN CORPUSCULAR HGB CONC 30.6 g/dl (32.0-36.5); MONO # 0.8 10^3/uL (0.0-0.8); MONO % 6.1 % (0.0-5.0); NEUTROPHILS # 11.9 10^3/uL (1.5-8.5); NEUTROPHILS % 89.9 % (36.0-66.0); PLATELET COUNT, AUTOMATED 480 10^3/uL (150-450); WHITE BLOOD COUNT 13.3 10^3/uL (4.0-10.0)
[2019-09-26 15:07] LABS: INR 1.11
[2019-09-26 15:25] LABS: ALBUMIN 2.6 GM/DL (3.2-5.2); ALT/SGPT 24 U/L (12-78); BILIRUBIN,DIRECT 0.2 MG/DL (0.0-0.2); BILIRUBIN,TOTAL 0.6 MG/DL (0.2-1.0); BLOOD UREA NITROGEN 10 MG/DL (7-18); CALCIUM LEVEL 8.8 MG/DL (8.8-10.2); CARBON DIOXIDE LEVEL 27 MEQ/L (21-32); CHLORIDE LEVEL 95 MEQ/L (98-107); CK-MB VALUE MASS 1.4 NG/ML (<3.6); CPK CREATINE PHOSPHOKINASE 31 U/L (26-192); GLOMERULAR FILTRATION RATE > 60.0 (>32); GLUCOSE, FASTING 124 MG/DL (70-100); MB/CK RELATIVE INDEX 4.52 (< OR =4); SODIUM LEVEL 127 MEQ/L (136-145); TOTAL PROTEIN 5.7 GM/DL (6.4-8.2); TROPONIN I < 0.02 NG/ML (< 0.10)
[2019-09-26] MEDS: METOPROLOL 5 MG/5 ML VIAL IV SCH ×4 (15:48→22:00)
[2019-09-26] MEDS ORDERED: MOM 30ML SUSPENSION UDC PO PRN (16:30)
[2019-09-26] MEDS ORDERED: ACETAMINOPHEN TAB 650MG DOSE (2X325MG) PO PRN (16:30)
[2019-09-26] MEDS ORDERED: MAALOX 30 ML SUSP *UDC PO PRN (16:30)
[2019-09-26] MEDS ORDERED: ISOVUE-370 76% 100ML VIAL As Ordered ONE (16:36)
[2019-09-26] MEDS ORDERED: CHOLESTYRAMINE 4 GM PWD PKT PO PRN (16:45)
[2019-09-26] MEDS ORDERED: LOMOTIL 2.5MG/0.025MG TABLET PO PRN (16:45)
[2019-09-26] MEDS ORDERED: EMLA CREAM 5GM (LIDOCAINE/PRILOCAINE) TOP PRN (16:45)
--- NOTE | 2019-09-26 16:46 | HPEPDOC ---
General Date of Admission Date of Service: September 26, 2019 Chief Complaint The patient is a 84-year-old female admitted with a reason for visit of Hemoptysis. Source: Patient Exam Limitations: No limitations Timing/Duration: Other (today) Severity: Other (, not applicable) Associated Symptoms: Other (hemoptysis) History of Present Illness This is a 83 years old pleasant white female with past medical history of hypertension, dyslipidemia, vitamin D deficiency, hypomagnesemia, glaucoma, history of diverticulitis squamosal cell carcinoma of lung, chronic diarrhea, anemia secondary cancer wasn't her usual state of health while she was eating hamwhen she felt like it got stuck in the middle of her esophagus and she also started having coughing fits. She felt like food went down, but she also noticed some blood with coughing. As per patient, she did drink some fluids afterwards without any problems. At the present time, patient is not actively coughing. No hemoptysis, but Jaguar is blood seen in her mouth and as per patient, respiration is a at baseline. She is not in short of breath or chest pain or nausea, vomiting, abdominal pain. Home Medications Scheduled Alendronate Sodium (Alendronate Sodium) 70 Mg Tab, 70 MG PO QWEEK, (Reported) SATURDAYS Atorvastatin Calcium (Atorvastatin Calcium) 40 Mg Tab, 40 MG PO QHS, (Reported) Bimatoprost (Lumigan) 50 Drop/2.5 Ml Linda, 1 DROP OU QHS, (Reported) Clopidogrel Bisulfate (Clopidogrel) 75 Mg Tablet, 75 MG PO DAILY, (Reported) Dorzolamide HCl (Dorzolamide HCl) 2% 10ML Drops, 1 DROP OU BID, (Reported) Doxepin HCl (Doxepin HCl) 25 Mg Capsule, 25 MG PO QHS, (Reported) Ferrous Sulfate (Iron) 325 Mg Tablet, 325 MG PO 3XW, (Reported) MON/WED/FRI Furosemide (Furosemide) 20 Mg Tab, 20 MG PO Q2D, (Reported) Lidocaine/Prilocaine (Lidocaine-Prilocaine Cream) 2.5%/2.5% Cream..g., 1 APLCT TOP ASDIRECTED for mediport analgesia Apply to skin over mediport 30 minutes prior to access of port Magnesium Chloride (Mag64) 64 Mg Tabcr, 64 MG PO BID, (Reported) Melatonin (Melatonin) 10 Mg Capsule, 10 MG PO QHS, (Reported) [place]-3S/Dha/Epa/Fish Oil (Fish Oil EC 1,200 mg Softgel) 1 Each Capsule.dr, 1 CAP PO DAILY, (Reported) Potassium Chloride (Potassium Chloride) 20 Meq Tablet.er, 1 TAB PO DAILY Triamcinolone Acetonide (Triamcinolone Acetonide) 0.1 % Lot, 1 APLCT TOP BID, (Reported) APPLY TO RIGHT FOOT Umeclidinium Brm/Vilanterol Tr (Anoro Ellipta 62.5-25 Mcg INH) 1 Aer Aer, 1 PUFF INH DAILY, (Reported) Scheduled PRN Acetaminophen (Acetaminophen) 325 Mg Tablet, 650 MG PO Q4H PRN for PAIN, (Reported) Cholestyramine (Cholestyramine Packet) 4 Gm Powd.pack, 4 GM PO QID PRN for DIARRHEA, (Reported) Dicyclomine Hcl (Dicyclomine HCl) 10 Mg/5 Ml Solution, 10 MG PO Q6H PRN for ABDOMINAL PAIN, (Reported) Diphenoxylate HCl/Atropine (Lomotil 2.5-0.025 mg Tablet) 1 Each Tablet, 1 TAB PO QID PRN for DIARRHEA Docusate Sodium (Colace) 100 Mg Capsule, 200 MG PO DAILY PRN for CONSTIPATION, (Reported) Loperamide HCl (Imodium A-D) 2 Mg Capsule, 2 MG PO Q6H PRN for DIARRHEA Magnesium Hydroxide (Milk of Magnesia) 400 Mg/5 Ml Oral.susp, 2,400 MG PO DAILY PRN for CONSTIPATION, (Reported) Allergies Coded Allergies: indapamide (Verified Allergy, Severe, 04/06/19) codeine (Verified Allergy, Mild, RASH, 04/06/19) azithromycin (Verified Allergy, Unknown, UNKNOWN - MD recommended adding, 04/06/19) tetracycline (Verified Adverse Reaction, Severe, tongue burning, 04/06/19) Past Medical History Medical History Squamous cell carcinoma of lung, hypertension, dyslipidemia, vitamin D deficiency, hypomagnesemia, glaucoma, diverticulitis Surgical History Sigmoid resection, diverticulitis, partial hysterectomy. Rectovaginal fistula repair, melanoma extraction, bilateral cataract extraction, colonoscopy Social History * Smoker: Denies Alcohol: Denies Drugs: denies A-FIB/CHADSVASC A-FIB History Current/History of A-Fib/PAF?: No Review of Systems Constitutional: Denies: Chills, Fever, Malaise, Night Sweats, Weakness, Fatigue, Weight Loss, Lethargy, Other Eyes: Denies: Pain, Vision change, Conjunctivae inflammation, Eyelid inflammation, Redness, Other ENT: Denies: Head Aches, Ear Pain, Dysphagia, Sinus Congestion, Post Nasal Drip, Sore Throat, Epistaxis, Other Symptoms Skin: Denies: Rash, Lesions, Jaundice, Bruising, Itching, Dry, Breakdown, Nail Changes, Other Pulmonary: Reports: Cough, Other Symptoms (. Hemoptysis) Cardiovascular: Denies: Chest Pain, Palpitations, Orthopnea, Paroxysmal Noc. Dyspnea, Edema, Lt Headedness, Other Symptoms Gastrointestinal: Denies: Nausea, Vomiting, Abdominal Pain, Diarrhea, Constipation, Melena, Hematochezia, Other Symptoms Genitourinary: Denies: Dysuria, Frequency, Incontinence, Hematuria, Retention, Other Symptoms Hematologic: Denies: Bruising, Bleeding Excessively, Petecchia, Purpura, Enlarged Lymph Nodes, Other Hematologic Musculoskeletal: Denies: Neck Pain, Back Pain, Shoulder Pain, Arm Pain, Hand Pain, Leg Pain, Foot Pain, Joint Pain, Muscle Pain, Spasms, Other Symptoms Neurological: Denies: Weakness, Numbness, Incoordination, Change in speech, Confusion, Seizures, Other Symptoms Physical Examination General Exam: Positive: Alert, Cooperative, Other (, fresh blood in the mouth but patient was not in acute cardiac or respiratory distress and, keep the conversation with Full Breath) Eye Exam: Positive: PERRLA, Conjunctiva & lids normal ENT Exam: Positive: Atraumatic, Mucous membr. moist/pink Neck Exam: Positive: Supple Chest Exam: Positive: Clear to auscultation, Normal air movement Heart Exam: Positive: Rate Normal, Normal S1, Normal S2 Telemetry: Positive: Atrial fibrillation Abdomen Exam: Positive: Normal bowel sounds, Soft Extremity Exam: Positive: Tenderness Skin Exam: Positive: Nl turgor and temperature Neuro Exam: Positive: Strength at 5/5 X4 ext, Cranial Nerves 3-12 NL Psych Exam: Positive: Mood NL, Oriented x 3 Vital Signs Vital Signs Date Time Temp Pulse Resp B/P (MAP) Pulse Ox O2 Delivery O2 Flow Rate FiO2 09/26/19 16:15 155/85 (108) 09/26/19 16:07 101 09/26/19 15:52 97 09/26/19 13:24 97.6 18 Room Air Laboratory Data Labs 24H Laboratory Tests 2 09/26/19 14:47: Immature Granulocyte % (Auto) 0.4, Neutrophils (%) (Auto) 89.9H, Lymphocytes (%) (Auto) 3.3L, Monocytes (%) (Auto) 6.1H, Eosinophils (%) (Auto) 0.1, Basophils (%) (Auto) 0.2, Neutrophils # (Auto) 11.9H, Lymphocytes # (Auto) 0.4L, Monocytes # (Auto) 0.8, Eosinophils # (Auto) 0.0, Basophils # (Auto) 0.0, Nucleated Red Blood Cells % (auto) 0.0, Prothrombin Time 14.0, Prothromb Time International Ratio 1.11, Anion Gap 5L, Glomerular Filtration Rate > 60.0, Calcium Level 8.8, Total Bilirubin 0.6, Direct Bilirubin 0.2, Aspartate Amino Transf (AST/SGOT) 20, Alanine Aminotransferase (ALT/SGPT) 24, Alkaline Phosphatase 78, Total Creatine Kinase 31, Creatine Kinase MB 1.4, Creatine Kinase MB Relative Index 4.52H, Troponin I < 0.02, Total Protein 5.7L, Albumin 2.6L, Albumin/Globulin Ratio 0.84L CBC/BMP Laboratory Tests 09/26/19 14:47 Problems (1) Hemoptysis, unspecified Status: Acute Problem Text: This is a 83 years old lady with past medical history of hypertension, dyslipidemia, vitamin D deficiency, hypomagnesemia, glaucoma, diverticulitis diagnosed recently with a squamous cell carcinoma of lung for which she is currently receiving single agent Pembrolizumab every 3 weeks. Patient had developed diarrhea with double meds. Hence, she been started on Imodium. Patient in the past. Also has a history of a squamous cell carcinoma of oropharynx. She underwent surgical resection and neck dissection with no metastatic disease until 2006. She was found to have a left cervical lymphadenopathy, which was consistent with the oral cavity squamous cell carcinoma. She was treated by Dr. Oh for radiation oncology using external beam radiation. After which she had been stable until January 2018 when she was again diagnosed with squamous cell carcinoma of lung. On the biopsy by Cornelio and she was referred to oncology Center where she was staged as T2 N0 M0 lung cancer and she was recommended to pursue surgery with Dr. Mayes, but patient chose not to proceed with surgery due to oxygen dependent. Postoperatively, she was again seen by Dr. Oh for radiation oncology, but she elected not to proceed with radiation therapy either at current she is been seen by Dr. Gleason and the [facility] and is receiving Pembrolizumab every 3 week. Patient admitted this time when she had a choking-like feeling, which resolved spontaneously, but followed by she had a coughing fit and she has some hemoptysis and was sent from [facility] for further workup. Pacing. Chest x-ray showed left perihilar and lower lobe opacities which are chronic in nature also. WBC count of 13.3, hemoglobin 9.9. Hematocrit 32.4, platelets of 480, sodium 127, BUN 10 and creatinine 0.5. Patient was also observed to have paroxysmal atrial fibrillation with RVR on different occasions with spontaneous resolution to control vent rate on the monitor. Admit patient to [facility] floor with telemetry Dr Reno was called from ED for possible EGD today IV fluid normal saline 70 mL per hour NPO Monitor H&H O2 support CT of the chest and neck with IV contrast Protonix 40 mg IV every 12 hours Hold PO meds till cleared by Dr Reno Swallow eval in a.m. (2) Squamous cell carcinoma of lung Status: Acute Problem Text: Patient under care with Dr. Gleason and is on Pembrolizumab every 3 weeks And had developed diarrhea with double med and hence Imodium has been prescribed with control of her diarrhea To call Dr. Gleason tomorrow morning for further recommendations (3) Atrial fibrillation with RVR Status: Acute Problem Text: Monitor patient on the telemetry , Toprol 2.5 mg IV every 6 hours to control the heart rate with holding parameters Daughter is controlled with beta doris, then we will place her on by mouth beta blockers after the swallow eval (4) Hypertension Status: Chronic Problem Text: Patient was started on IV beta blockers for control of the heart rate, but will also help with the blood pressure Continue by mouth meds as well (5) Hyperlipidemia Status: Chronic Problem Text: Home meds (6) Hyponatremia Status: Chronic Problem Text: 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 Plan / VTE VTE Prophylaxis Ordered?: Yes LISA DIAZ MD September 26, 2019 16:46
--- NOTE | 2019-09-26 17:12 | REP ---
Clinical: Previous history of possible epiglottic study focus. Technique: Axial contrast enhanced images from the skull base to the thoracic inlet with coronal and sagittal re-formations using 100 ml Isovue 370 intravenous contrast material. Comparison: 03/25/2019. Findings: There is a very subtle asymmetric soft tissue along the right side of the aryepiglottic fold/epiglottis and piriform sinus (images 36 - 44) which is similar to prior examination and nonspecific in appearance. No associated enhancing lesion is identifiable, and direct inspection/visualization may be warranted along with follow-up PET CT. The remainder of the nasopharynx, oropharynx and hypopharyngeal region appears essentially normal. No obvious significant adenopathy is appreciated. The airway appears patent. Glandular tissue appears symmetric and normal. Postoperative changes along the left side of the neck and hypopharyngeal region are again noted. Atherosclerotic changes to the carotid arteries identified. Visualized sinuses are clear. Osseous structures demonstrate presumed degenerative changes. Impression: 1. Very subtle asymmetric soft tissue prominence along the right side of the aryepiglottic fold/epiglottis and piriform sinus similar to prior examination and without discrete focal enhancing mass lesion. No associated adenopathy is appreciated. Correlation with direct inspection/visualization may be warranted along with follow-up PET CT. 2. Remainder of the examination is relatively normal. Electronically Signed by Star Painter MD 09/26/2019 05:04 P
[2019-09-26] MEDS ORDERED: TRANEXAMIC ACID 100 MG/ML 10ML VIAL NEB ONE (17:15)
--- NOTE | 2019-09-26 17:23 | REP ---
Clinical: Hemoptysis. History of lung cancer. Technique: Axial contrast enhanced images from the thoracic inlet to the upper abdomen with coronal and sagittal re-formations using 100 ml Isovue 370 intravenous contrast material. Comparison: 09/08/2019. Findings: Large complex centrally necrotic and irregularly enhancing left lower lobe lung mass measuring roughly 10 cm diameter and approximately 13 cm in craniocaudal length along with irregular areas of left-sided pleural thickening and small left effusion are essentially unchanged from prior examination. Advanced chronic emphysematous disease is also identified and unchanged. Mucous and inspissated material is identified with in the trachea extending into the bilateral lower lobe bronchi (left greater than right). Subtle patchy scattered early alveolar infiltrates are suggested along with left basilar/lingular atelectasis. Mediastinal and hilar adenopathy is suggested. Atherosclerotic changes to the thoracic aorta and coronary arteries noted without aortic aneurysm or dissection. Cardiomegaly is appreciated with small pericardial effusion essentially unchanged. Surrounding musculoskeletal structures demonstrate degenerative changes without definite focal osseous abnormality. Impression: 1. Large complex enhancing / necrotic left lower lung mass with associated subtle left-sided pleural thickening and small left pleural effusion essentially unchanged from prior examination. 2. Mucus and inspissated material within the trachea extending through the myah to the lower lobe bronchi with associated patchy early scattered infiltrates and minimal left basilar/lingular atelectasis. Electronically Signed by Star Painter MD 09/26/2019 05:14 P
[2019-09-26] MEDS ORDERED: OCTREOTIDE ACETATE 1,200 MCG in NS 238.8 ML IV SCH (19:00)
--- NOTE | 2019-09-26 19:28 | ECGEPIP ---
[facility] - ED Test Date: 2019-09-26 Pat Name: BOY LEVY Department: Room: - Gender: Female Senior Reliability Engineer: evelina : 1935 Requested By: KARYN DORMAN Order Number: [id number] Reading MD: Dilma Carrington Measurements Intervals [place] Rate: 98 P: 20 NV: 151 QRS: 21 QRSD: 129 T: -1 QT: 333 QTc: 426 Interpretive Statements SINUS RHYTHM LEFT ATRIAL ENLARGEMENT RIGHT BUNDLE BRANCH BLOCK LOW QS VOLTAGE LIMB LEAD NONSPECIFIC ST T WAVE CHANGES CW 09/08/[address] T WAVE CHANGES Electronically Signed on 09-26-2019 19:27:46 EDT by Dilma Carrington
[2019-09-26] MEDS ORDERED: ATORVASTATIN 20 MG TAB PO SCH (21:00)
[2019-09-26] MEDS ORDERED: DOXEPIN 25 MG CAP PO SCH (21:00)
[2019-09-26] MEDS ORDERED: DIGOXIN INJ 0.5 MG/2 ML AMP (J1160) IV ONE ×2 (21:00→22:45)
[2019-09-26] MEDS ORDERED: NS 500 ML IV ONE ×2 (21:30→22:30)
[2019-09-26] MEDS: PANTOPRAZOLE 40MG VIAL (C9113 PER 1) IV SCH (22:01)
[2019-09-26] MEDS: DOCUSATE SODIUM 100 MG CAP PO SCH (22:01)
[2019-09-26] MEDS: DORZOLAMIDE 2% OPHTH SOLN 10 ML BTL OU SCH (22:01)
[2019-09-27] VITALS (10 sets, daily range): BP systolic 88–106; BP diastolic 51–77
[2019-09-27] MEDS: METOPROLOL 5 MG/5 ML VIAL IV SCH ×2 (03:54→09:42)
[2019-09-27 04:28] LABS: BASO % 0.1 % (0.0-1.0); EOS % 0.1 % (0.0-3.0); HEMATOCRIT 27.3 % (36.0-47.0); HEMOGLOBIN 8.2 g/dl (12.0-15.5); LYMPH # 0.7 10^3/uL (1.5-5.0); MEAN CORPUSCULAR HEMOGLOBIN 24.8 pg (27.0-33.0); MEAN CORPUSCULAR VOLUME 82.7 fl (80.0-96.0); MONO # 0.9 10^3/uL (0.0-0.8); MONO % 6.6 % (0.0-5.0); NEUTROPHILS # 12.2 10^3/uL (1.5-8.5); NEUTROPHILS % 87.6 % (36.0-66.0); PLATELET COUNT, AUTOMATED 422 10^3/uL (150-450); WHITE BLOOD COUNT 13.9 10^3/uL (4.0-10.0)
[2019-09-27 04:53] LABS: ALBUMIN 2.4 GM/DL (3.2-5.2); ALT/SGPT 20 U/L (12-78); BILIRUBIN,TOTAL 0.6 MG/DL (0.2-1.0); BLOOD UREA NITROGEN 12 MG/DL (7-18); CALCIUM LEVEL 7.9 MG/DL (8.8-10.2); CARBON DIOXIDE LEVEL 22 MEQ/L (21-32); CHLORIDE LEVEL 103 MEQ/L (98-107); GLOMERULAR FILTRATION RATE > 60.0 (>32); GLUCOSE, FASTING 120 MG/DL (70-100); MAGNESIUM LEVEL 1.6 MG/DL (1.8-2.4); POTASSIUM SERUM 4.8 MEQ/L (3.5-5.1); SODIUM LEVEL 132 MEQ/L (136-145); TOTAL PROTEIN 5.1 GM/DL (6.4-8.2)
[2019-09-27] MEDS ORDERED: MAGNESIUM OXIDE 400 MG TAB (MAG-OX) PO ONE (06:45)
[2019-09-27] MEDS ORDERED: SCOPOLAMINE 1MG TRANSDERMAL PATCH TOP SCH (09:00)
[2019-09-27] MEDS: DOCUSATE SODIUM 100 MG CAP PO SCH (09:00)
[2019-09-27] MEDS: PANTOPRAZOLE 40MG VIAL (C9113 PER 1) IV SCH (09:00)
[2019-09-27] MEDS: DORZOLAMIDE 2% OPHTH SOLN 10 ML BTL OU SCH (09:42)
[2019-09-27] MEDS ORDERED: MORPHINE 30 MG TAB **MSIR PO PRN (10:15)
--- NOTE | 2019-09-27 11:14 | IPNPDOC ---
Subjective Date Seen The patient was seen on 09/27/19. Subjective Chief Complaint/HPI Patient refuses to any invasive procedures including EGD, Patient is requesting only comfort care General: Reports: Fatigue, Malaise, Normal Appetite Constitutional: Denies: Chills, Fever, Malaise, Night Sweats, Weakness, Fatigue, Weight Loss, Lethargy, Other Pulmonary: Reports: Cough Cardiovascular: Denies: Chest Pain, Palpitations, Orthopnea, Paroxysmal Noc. Dyspnea, Edema, Lt Headedness, Other Symptoms Gastrointestinal: Denies: Nausea, Vomiting, Abdominal Pain, Diarrhea, Constipation, Melena, Hematochezia, Other Symptoms Musculoskeletal: Denies: Neck Pain, Back Pain, Shoulder Pain, Arm Pain, Hand Pain, Leg Pain, Foot Pain, Joint Pain, Muscle Pain, Spasms, Other Symptoms Objective Physical Examination Neck Exam: Positive: Supple Chest Exam: Positive: Clear to auscultation, Normal air movement Heart Exam: Positive: Rate Normal, Normal S1, Normal S2 Telemetry: Positive: Atrial fibrillation Abdomen Exam: Positive: Normal bowel sounds, Soft Extremity Exam: Positive: Tenderness Skin Exam: Positive: Nl turgor and temperature Assessment /Plan Problems (1) Squamous cell carcinoma of lung Status: Acute Problem Text: Patient was admitted with hemoptysis yesterday CT of the chest showed; 1. Large complex enhancing / necrotic left lower lung mass with associated subtle left-sided pleural thickening and small left pleural effusion essentially unchanged from prior examination. 2. Mucus and inspissated material within the trachea extending through the myah to the lower lobe bronchi with associated patchy early scattered infiltrates and minimal left basilar/lingular atelectasis . She was scheduled for EGD by Dr. Li, but she refused the procedure. I need was a workup Patient is currently requesting only comfort care, after speaking with patient and provided her information with all the options. I restart to her healthcare proxy. Her son, Talat, who is her healthcare proxy also agreed with comfort measures only and the DNR, DNI and comfort measures were signed on telephone consent from his healthcare proxy, patient also had agreed with the comfort care, but she has a difficulty hearing, hence it was prudent to reach out to her healthcare proxy and get consent from him to provide comfort care to patient. Will DC telemetry, all LIFE-prolonging medications and will provide only comfort care with morphine, scopolamine and benzodiazepine. Patient has very poor prognosis. Once patient is comfortable. 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, no intervention (5) Atrial fibrillation with RVR Status: Acute Problem Text: Comfort measures only DC telemetry Plan/VTE VTE Prophylaxis Ordered?: No VTE Exclusion Mechanical Proph: Other (, comfort measures only) VTE Exclusion Pharmacological: Other (comfort measures only) VS, I&O, 24H, Fishbone Vital Signs/I&O Vital Signs Date Time Temp Pulse Resp B/P (MAP) Pulse Ox O2 Delivery O2 Flow Rate FiO2 09/27/19 08:00 97.9 77 22 88/52 (64) 95 Nasal Cannula 2.0 I&O- Last 24 Hours up to 6 AM 09/27/19 06:00 Intake Total 1970 ml Output Total 900 ml Balance 1070 ml Laboratory Data 24H LABS Laboratory Tests 2 09/26/19 14:47: Immature Granulocyte % (Auto) 0.4, Neutrophils (%) (Auto) 89.9H, Lymphocytes (%) (Auto) 3.3L, Monocytes (%) (Auto) 6.1H, Eosinophils (%) (Auto) 0.1, Basophils (%) (Auto) 0.2, Neutrophils # (Auto) 11.9H, Lymphocytes # (Auto) 0.4L, Monocytes # (Auto) 0.8, Eosinophils # (Auto) 0.0, Basophils # (Auto) 0.0, Nucleated Red Blood Cells % (auto) 0.0, Prothrombin Time 14.0, Prothromb Time International Ratio 1.11, Anion Gap 5L, Glomerular Filtration Rate > 60.0, Calcium Level 8.8, Total Bilirubin 0.6, Direct Bilirubin 0.2, Aspartate Amino Transf (AST/SGOT) 20, Alanine Aminotransferase (ALT/SGPT) 24, Alkaline Phosphatase 78, Total Creatine Kinase 31, Creatine Kinase MB 1.4, Creatine Kinase MB Relative Index 4.52H, Troponin I < 0.02, Total Protein 5.7L, Albumin 2.6L, Albumin/Globulin Ratio 0.84L 09/27/19 04:16: Immature Granulocyte % (Auto) 0.6, Neutrophils (%) (Auto) 87.6H, Lymphocytes (%) (Auto) 5.0L, Monocytes (%) (Auto) 6.6H, Eosinophils (%) (Auto) 0.1, Basophils (%) (Auto) 0.1, Neutrophils # (Auto) 12.2H, Lymphocytes # (Auto) 0.7L, Monocytes # (Auto) 0.9H, Eosinophils # (Auto) 0.0, Basophils # (Auto) 0.0, Nucleated Red Blood Cells % (auto) 0.0, Anion Gap 7L, Glomerular Filtration Rate > 60.0, Calcium Level 7.9L, Total Bilirubin 0.6, Aspartate Amino Transf (AST/SGOT) 14, Alanine Aminotransferase (ALT/SGPT) 20, Alkaline Phosphatase 70, Total Protein 5.1L, Albumin 2.4L, Albumin/Globulin Ratio 0.89L, Magnesium Level 1.6L CBC/BMP Laboratory Tests 09/26/19 14:47 09/26/19 22:59 09/27/19 04:16 LISA DAIZ MD September 27, 2019 11:14
--- NOTE | 2019-09-27 11:28 | CR ---
DATE OF CONSULTATION: 09/26/2019 BRIEF HISTORY OF PRESENT ILLNESS: The patient is an 84-year-old female, who presents with questionable hemoptysis/hematemesis, presents to the emergency room with some spitting up blood. Essentially had a piece of ham earlier today and had difficulty swallowing this. She notices that it is difficult in the back of her throat. Sometimes she gets pills stuck. 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 She also has a lung cancer that is necrotic and enlarging in the left lower lobe. Once again presents with evidence of hematemesis/hemoptysis and I am asked to see her for possible gastrointestinal (GI) source of this. She has been able to drink without any significant problems and she has had some blood that is throughout her oropharynx and unable to see anything in the back of her throat because of blood staining. Her past medical history is significant for history of squamous cell cancer of the lung, history of epiglottis cancer, history of hypertension, dyslipidemia, vitamin D deficiency, hypomagnesemia, glaucoma, diverticulitis, sigmoid resectionm, partial hysterectomy, rectovaginal fistula repair and melanoma removal, cataract surgery. Medications include: - alendronate - atorvastatin - Lumigan - Plavix - dorzolamide - doxepin - iron - furosemide - magnesium - melatonin - fish oil - potassium - other inhalers On her physical exam, the patient is a frail 84-year-old who looks stated age. Has some blood all over her oropharynx area. Lungs are clear anteriorly. Heart is regular with multiple irregular beats. Abdomen is soft, nontender. IMPRESSION/PLAN: The patient has probable bleeding from the epiglottis lesion. At this point, I would recommend ENT evaluation. However, if she stabilizes it may be possible that she can followup with ENT tomorrow, but from a general surgery standpoint I feel that this is unlikely to be an upper GI bleed and thus, recommending an upper endoscopy for her is not necessary at this time. I would recommend a laryngoscopy first before an esophagogastroduodenoscopy (EGD). If she has active bleeding even more reason to perform the ENT evaluation. Given that she already has a documented source and the area that she is complaining of is the posterior oropharynx/cervical area. Thus, please contact me if you feel that there is further need for evaluation or additional recommendations.
--- NOTE | 2019-09-27 13:18 | DS.PDOC ---
Discharge Summary General Date of Admission September 26, 2019 at 16:28 Date of Discharge 09/27/19 Discharge Summary PROCEDURES PERFORMED DURING STAY: None. ADMITTING DIAGNOSES: 1. Hemoptysis ,squamous cell carcinoma of longer. DISCHARGE DIAGNOSES: 1. Hemoptysis, squamous cell carcinoma of lung, hypertension, dyslipidemia, vitamin D deficiency, hypomagnesemia, glaucoma. COMPLICATIONS/CHIEF COMPLAINT: Hemoptysis,Unspecified. HISTORY OF PRESENT ILLNESS: This is a 83 years old pleasant white female with past medical history of hypertension, dyslipidemia, vitamin D deficiency, hypomagnesemia, glaucoma, history of diverticulitis squamosal cell carcinoma of lung, chronic diarrhea, anemia secondary cancer wasn't her usual state of health while she was eating hamwhen she felt like it got stuck in the middle of her esophagus and she also started having coughing fits. She felt like food went down, but she also noticed some blood with coughing. As per patient, she did drink some fluids afterwards without any problems. At the present time, patient is not actively coughing. No hemoptysis, but Jaguar is blood seen in her mouth and as per patient, respiration is a at baseline. She is not in short of breath or chest pain or nausea, vomiting, abdominal pain.. HOSPITAL COURSE: Patient was admitted with hemoptysis secondary to necrotizing squamous cell mass in her lung. Patient has refused any intervention and she remained labile overnight with a blood pressure on the hypotensive side. She did receive multiple boluses of normal saline to maintain her vitals but finally this morning when I spoke to her. She decided to sign comfort care. Son also was called and he agreed with her and it care. Once the phone consent for comfort care. Patient was started on comfort care. This morning and this afternoon at 12:33 PM he peacefully. Family at the bedside. DISCHARGE MEDICATIONS: Please see below. ALLERGIES: Please see below. PHYSICAL EXAMINATION ON DISCHARGE: Not applicable as patient LABORATORY DATA: Please see below. IMAGING: Not applicable PROGNOSIS: Patient ACTIVITY: As tolerated. DIET: DISCHARGE PLAN: DISPOSITION: . DISCHARGE INSTRUCTIONS: 1. Not applicable. ITEMS TO FOLLOWUP ON ON OUTPATIENT: 1. Not applicable. DISCHARGE CONDITION: Stable. TIME SPENT ON DISCHARGE:22 minutes. Patient was pronounced at 12:33 PM today on 09/27/2019. Patient's son, Talat unavailable at the bedside Vital Signs/I&Os Vital Signs Date Time Temp Pulse Resp B/P (MAP) Pulse Ox O2 Delivery O2 Flow Rate FiO2 09/27/19 08:00 97.9 77 22 88/52 (64) 95 Nasal Cannula 2.0 I&O- Last 24 Hours up to 6 AM 09/27/19 06:00 Intake Total 1970 ml Output Total 900 ml Balance 1070 ml Laboratory Data Labs 24H Laboratory Tests 2 09/26/19 14:47: Immature Granulocyte % (Auto) 0.4, Neutrophils (%) (Auto) 89.9H, Lymphocytes (%) (Auto) 3.3L, Monocytes (%) (Auto) 6.1H, Eosinophils (%) (Auto) 0.1, Basophils (% ) (Auto) 0.2, Neutrophils # (Auto) 11.9H, Lymphocytes # (Auto) 0.4L, Monocytes # (Auto) 0.8, Eosinophils # (Auto) 0.0, Basophils # (Auto) 0.0, Nucleated Red Blood Cells % (auto) 0.0, Prothrombin Time 14.0, Prothromb Time International Ratio 1.11, Anion Gap 5L, Glomerular Filtration Rate > 60.0, Calcium Level 8.8, Total Bilirubin 0.6, Direct Bilirubin 0.2, Aspartate Amino Transf (AST/SGOT) 20, Alanine Aminotransferase (ALT/SGPT) 24, Alkaline Phosphatase 78, Total Creatine Kinase 31, Creatine Kinase MB 1.4, Creatine Kinase MB Relative Index 4.52H, Troponin I < 0.02, Total Protein 5.7L, Albumin 2.6L, Albumin/Globulin Ratio 0.84L 09/27/19 04:16: Immature Granulocyte % (Auto) 0.6, Neutrophils (%) (Auto) 87.6H, Lymphocytes (%) (Auto) 5.0L, Monocytes (%) (Auto) 6.6H, Eosinophils (%) (Auto) 0.1, Basophils (%) (Auto) 0.1, Neutrophils # (Auto) 12.2H, Lymphocytes # (Auto) 0.7L, Monocytes # (Auto) 0.9H, Eosinophils # (Auto) 0.0, Basophils # (Auto) 0.0, Nucleated Red Blood Cells % (auto) 0.0, Anion Gap 7L, Glomerular Filtration Rate > 60.0, Calcium Level 7.9L, Total Bilirubin 0.6, Aspartate Amino Transf (AST/SGOT) 14, Alanine Aminotransferase (ALT/SGPT) 20, Alkaline Phosphatase 70, Total Protein 5.1L, Albumin 2.4L, Albumin/Globulin Ratio 0.89L, Magnesium Level 1.6L CBC/BMP Laboratory Tests 09/26/19 14:47 09/26/19 22:59 09/27/19 04:16 Discharge Medications Scheduled Alendronate Sodium (Alendronate Sodium) 70 Mg Tab, 70 MG PO QWEEK, (Reported) SATURDAYS Atorvastatin Calcium (Atorvastatin Calcium) 40 Mg Tab, 40 MG PO QHS, (Reported) Bimatoprost (Lumigan) 50 Drop/2.5 Ml [place], 1 DROP OU QHS, (Reported) Clopidogrel Bisulfate (Clopidogrel) 75 Mg Tablet, 75 MG PO DAILY, (Reported) Dorzolamide HCl (Dorzolamide HCl) 2% 10ML Drops, 1 DROP OU BID, (Reported) Doxepin HCl (Doxepin HCl) 25 Mg Capsule, 25 MG PO QHS, (Reported) Ferrous Sulfate (Iron) 325 Mg Tablet, 325 MG PO 3XW, (Reported) FRI/FRI/FRI Furosemide (Furosemide) 20 Mg Tab, 20 MG PO Q2D, (Reported) Lidocaine/Prilocaine (Lidocaine-Prilocaine Cream) 2.5%/2.5% Cream..g., 1 APLCT TOP ASDIRECTED for mediport analgesia Apply to skin over mediport 30 minutes prior to access of port Magnesium Chloride (Mag64) 64 Mg Tabcr, 64 MG PO BID, (Reported) Melatonin (Melatonin) 10 Mg Capsule, 10 MG PO QHS, (Reported) [place]-3S/Dha/Epa/Fish Oil (Fish Oil EC 1,200 mg Softgel) 1 Each Capsule.dr, 1 CAP PO DAILY, (Reported) Potassium Chloride (Potassium Chloride) 20 Meq Tablet.er, 1 TAB PO DAILY Triamcinolone Acetonide (Triamcinolone Acetonide) 0.1 % Lot, 1 APLCT TOP BID, (Reported) APPLY TO RIGHT FOOT Umeclidinium Brm/Vilanterol Tr (Anoro Ellipta 62.5-25 Mcg INH) 1 Aer Aer, 1 PUFF INH DAILY, (Reported) Scheduled PRN Acetaminophen (Acetaminophen) 325 Mg Tablet, 650 MG PO Q4H PRN for PAIN, (Reported) Cholestyramine (Cholestyramine Packet) 4 Gm Powd.pack, 4 GM PO QID PRN for DIARRHEA, (Reported) Dicyclomine Hcl (Dicyclomine HCl) 10 Mg/5 Ml Solution, 10 MG PO Q6H PRN for ABDOMINAL PAIN, (Reported) Diphenoxylate HCl/Atropine (Lomotil 2.5-0.025 mg Tablet) 1 Each Tablet, 1 TAB PO QID PRN for DIARRHEA Docusate Sodium (Colace) 100 Mg Capsule, 200 MG PO DAILY PRN for CONSTIPATION, (Reported) Loperamide HCl (Imodium A-D) 2 Mg Capsule, 2 MG PO Q6H PRN for DIARRHEA Magnesium Hydroxide (Milk of Magnesia) 400 Mg/5 Ml Oral.susp, 2,400 MG PO DAILY PRN for CONSTIPATION, (Reported) Allergies Coded Allergies: indapamide (Verified Allergy, Severe, 04/06/19) codeine (Verified Allergy, Mild, RASH, 04/06/19) azithromycin (Verified Allergy, Unknown, UNKNOWN - recommended adding, 04/06/19) tetracycline (Verified Adverse Reaction, Severe, tongue burning, 04/06/19) LISA DIAZ MD September 27, 2019 13:18
== END 2019-09-27 12:33 | disposition expired | DRG 178 ==
LOC: M ED 13:20 → EDBD 13:20 → M ED INP 16:28 → ENRESERV 16:53 → M PCU 18:58
PROVIDERS: ADMIT Internal Medicine; ATTEND Internal Medicine
DX: J85.0 Gangrene and necrosis of lung (principal); C34.32 Malignant neoplasm of lower lobe, left bronchus or lung; R04.2 Hemoptysis; E87.1 Hypo-osmolality and hyponatremia; C78.39 Secondary malignant neoplasm of other respiratory organs; C32.1 Malignant neoplasm of supraglottis; I10 Essential (primary) hypertension; E78.5 Hyperlipidemia, unspecified; E55.9 Vitamin D deficiency, unspecified; E83.42 Hypomagnesemia; H40.9 Unspecified glaucoma; Z51.5 Encounter for palliative care; Z66 Do not resuscitate; D63.0 Anemia in neoplastic disease; K52.9 Noninfective gastroenteritis and colitis, unspecified; I48.0 Paroxysmal atrial fibrillation; Z88.1 Allergy status to other antibiotic agents; Z88.5 Allergy status to narcotic agent; Z88.8 Allergy status to other drugs, medicaments and biological substances; Z90.49 Acquired absence of other specified parts of digestive tract; Z79.02 Long term (current) use of antithrombotics/antiplatelets; Z98.41 Cataract extraction status, right eye; Z98.42 Cataract extraction status, left eye; Z85.820 Personal history of malignant melanoma of skin; Z79.899 Other long term (current) drug therapy